=== PATIENT | male | born 1940 | race Caucasian/White ===

== ENCOUNTER 2022-12-25 14:45 | Outpatient (OUT) | payer MEDICARE, SELFPAY ==
[2022-12-25 15:27] LABS: Estimated Average Glucose 160 mg/dL; Glycohemoglobin A1C 7.2 % (4.5-6.2)
== END 2022-12-25 14:46 | disposition home or self-care (01) ==
PROVIDERS: PCP Family Medicine; Visit Provider Family Medicine
DX: E11.65 Type 2 diabetes mellitus with hyperglycemia (principal)
CPT/HCPCS: 36415; 83036

== ENCOUNTER 2023-06-04 05:58 | Inpatient (IN) | payer MEDICARE, SELFPAY ==
[2023-06-04] VITALS (34 sets, daily range): BP systolic 105–167; BP diastolic 53–90; PULSE 64–116; RESP 15–30; TEMP 36.4–36.9; O2SAT 87–100; BMI 23.3
--- NOTE | 2023-06-04 06:14 | ECG_ITS ---
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
[2023-06-04 06:16] LABS: Adenovirus NOT DETECTED (NOT DETECTE); Bordetella parapertussis NOT DETECTED (NOT DETECTE); Coronavirus 229E NOT DETECTED (NOT DETECTE); Coronavirus HKU1 NOT DETECTED (NOT DETECTE); Coronavirus NL63 NOT DETECTED (NOT DETECTE); Coronavirus OC43 NOT DETECTED (NOT DETECTE); Human Metapneumovirus NOT DETECTED (NOT DETECTE); Influenza A NOT DETECTED (NOT DETECTE); Influenza B NOT DETECTED (NOT DETECTE); Mycoplasma pneumoniae NOT DETECTED (NOT DETECTE); Parainfluenza Virus 1 NOT DETECTED (NOT DETECTE); Parainfluenza Virus 2 NOT DETECTED (NOT DETECTE); Parainfluenza Virus 3 NOT DETECTED (NOT DETECTE); Parainfluenza Virus 4 NOT DETECTED (NOT DETECTE); Respiratory Syncytial Virus NOT DETECTED (NOT DETECTE); SARS-CoV-2 NOT DETECTED (NOT DETECTE)
--- NOTE | 2023-06-04 06:27 | ED_ITS ---
HPI - SOB/Dyspnea General Chief Complaint: Shortness of Breath/Dyspnea Stated Complaint: OTHER Time Seen by Provider: 06/04/23 06:20 Source: patient Mode of arrival: ambulance Limitations: no limitations History of Present Illness HPI Narrative: patient has past history of COPD. daily smoker. Was smoking cigarette when Squad arrived. past history of CAD and diabetes. Presents complaining of chest pain and shortness of breath. States started a couple of hours ago. No associated nausea or vomiting or abdominal pain. No fever MD elicited complaint: shortness of breath Pertinent past history: COPD and diabetes Related Data Home Medications ?Medication ?Instructions ?Recorded ?Confirmed albuterol sulfate 90 mcg/actuation 2 inh inhalation Q4H PRN shortness 06/04/23 06/04/23 aerosol inhaler of breath or wheezing amlodipine 5 mg tablet 5 mg PO DAILY 06/04/23 06/04/23 blood sugar diagnostic (Accu-Chek 06/04/23 06/04/23 Guide test strips) carvedilol 25 mg tablet 25 mg PO Q12H 06/04/23 06/04/23 cyclobenzaprine 10 mg tablet 10 mg PO DAILY 06/04/23 06/04/23 ipratropium 0.5 mg-albuterol 3 mg 3 ml inhalation Q4H PRN shortness 06/04/23 06/04/23 (2.5 mg base)/3 mL nebulization of breath or wheezing soln metformin 500 mg tablet,extended 500 mg PO BID 06/04/23 06/04/23 release 24 hr oxycodone-acetaminophen 10 mg-325 1 tab PO Q6H PRN pain 06/04/23 06/04/23 mg tablet paroxetine HCl 20 mg tablet 20 mg PO QAM 06/04/23 06/04/23 rosuvastatin 20 mg tablet 20 mg PO QPM 06/04/23 06/04/23 spironolactone 25 mg tablet 25 mg PO QAM 06/04/23 06/04/23 Allergies Allergy/AdvReac Type Severity Reaction Status Date / Time No Known Drug Allergies Allergy Verified 06/04/23 06:04 Review of Systems ROS Status of ROS 10 or more systems reviewed and unremark able except as noted in history and below [facility] Medical History (Updated 06/04/23 @ 14:41 by Joelle Caleb, DO) COPD (chronic obstructive pulmonary disease) ?J44.9 - Chronic obstructive pulmonary disease, unspecified (ICD-10) Chronic back pain ?M54.9 - Dorsalgia, unspecified (ICD-10) ?G89.29 - Other chronic pain (ICD-10) Anxiety ?F41.9 - Anxiety disorder, unspecified (ICD-10) Hyperlipidemia ?E78.5 - Hyperlipidemia, unspecified (ICD-10) Non-insulin dependent diabetes mellitus Hypertension ?I10 - Essential (primary) hypertension (ICD-10) History of myocardial infarct at age less than 60 years ?I25.2 - Old myocardial infarction (ICD-10) Family History Aunt Family history of cancer Social History Within the past year, how often did you have a drink containing alcohol: never Score interpretation: A score less than 4 is consistent with normal alcohol consumption. 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 [employer] Highest level of school completed/degree received: 10th grade Do you want help with school or training: No Are you now , , , , never or living with a partner: Little interest or pleasure in doing things: several days Feeling down, depressed, or hopeless: several days Life stressors: recent of family or friend Life stressor details: passed four weeks ago Do you think of yourself as: straight/heterosexual Gender Identity: male Exam Constitutional Vital Signs, click to edit/add: Last Vital Signs Temp 97.8 F 06/05/23 03:18 Pulse 70 06/05/23 06:00 Resp 22 06/05/23 03:18 BP 124/68 06/05/23 03:18 Pulse Ox 96 06/05/23 03:18 O2 Del Method Nasal Cannula 06/05/23 03:18 O2 Flow Rate 2 06/05/23 03:18 Common normals: no apparent distress (mild distress), average body habitus, oriented x3, no limitations, alert and well nourished HENMT Common normals: normocephalic and head/scalp atraumatic Eye Common normals: EOMs intact bilaterally and conjunctivae normal Respiratory Common normals: normal respiratory effort (mild distress. diminished breath sounds) Cardio Common normals: regular rate, regular rhythm, S1 normal heart sound and S2 normal heart sound GI Common normals: Normal to inspection, nondistended, normoactive bowel sounds present, soft to palpation and non-tender Extremity Common normals: normal to inspection and full ROM Neuro Common normals: oriented x3, CN's II-XII intact bilaterally, moves all extremities, no focal motor deficits and no sensory deficits noted Psych Appearance: grossly normal Course Vital Signs Vital signs: Vital Signs Temperature 98.5 F 06/04/23 06:01 Pulse Rate 85 06/04/23 06:01 Respiratory Rate 18 06/04/23 06:01 Blood Pressure 120/82 06/04/23 06:01 Pulse Oximetry 99 06/04/23 06:01 Oxygen Delivery Method Room Air 06/04/23 06:01 Temperature 97.8 F 06/05/23 03:18 Pulse Rate 70 06/05/23 06:00 Respiratory Rate 22 06/05/23 03:18 Blood Pressure 124/68 06/05/23 03:18 Pulse Oximetry 96 06/05/23 03:18 Oxygen Delivery Method Nasal Cannula 06/05/23 03:18 Oxygen Delivery Flow Rate 2 06/05/23 03:18 MDM - SOB/Dyspnea MDM Narrative Medical decision making narrative: past history of COPD , diabetes and CAD. current smoker. Presents via Squad complaining of chest pain for a couple of hours and dyspnea. EKG with NSR. old anterior wall scar. noisy base and inverted T aVL. labs ordered as well as duoneb and solumedrol. Care transferred to [facility] at change of shift Lab Data Labs: Lab Results 06/04/23 06/04/23 Range/Units 06:08 08:26 WBC 10.2 (4.0-11.0) 10^3/uL RBC 4.40 L (4.70-6.10) 10^6/uL Hgb 13.7 L (14.0-18.0) g/dL Hct 39.7 L (42.0-54.0) % MCV 90.2 (80.0-94.0) fL MCH 31.1 (25.9-34.0) pg MCHC 34.5 (29.9-35.2) g/dL RDW 11.6 (11.0-15.0) % Plt Count 97 L (150-450) 10^3/uL MPV 11.8 (9.5-13.5) fL Neut % (Auto) 69.7 (43.0-75.0) % Lymph % (Auto) 13.5 L (20.5-60.0) % [place] % (Auto) 12.8 H (1.7-12.0) % Eos % (Auto) 3.0 (0.9-7.0) % Baso % (Auto) 0.7 (0.2-2.0) % Neut # (Auto) 7.1 H (1.4-6.5) 10^3/uL Lymph # (Auto) 1.4 (1.2-3.8) 10^3/uL [place] # (Auto) 1.3 H (0.3-0.8) 10^3/uL Eos # (Auto) 0.3 (0.0-0.7) 10^3/uL Baso # (Auto) 0.1 (0.0-0.1) 10^3/uL Abs Immat Gran (auto) 0.03 (0.00-0.03) 10^3/uL Imm/Tot Granulo (auto) 0.3 (0.0-0.5) % Sodium 131 L 128 L (136-145) mmol/L Potassium 6.3 H* 6.8 H* (3.5-5.1) mmol/L Chloride 95 L 95 L (98-107) mmol/L Carbon Dioxide 28.3 23.9 (21.0-32.0) mmol/L Anion Gap 14.0 15.9 BUN 20.0 H 20.0 H (7.0-18.0) mg/dL Creatinine 1.58 H 1.57 H (0.70-1.30) mg/dL Est GFR ( Amer) 51 L 52 L (>=60) Est GFR (Non-Af Amer) 42 L 43 L (>=60) BUN/Creatinine Ratio 12.7 12.7 Glucose 130 H 149 H (74-106) mg/dL Calcium 8.6 8.6 (8.5-10.1) mg/dL Troponin I High Sens 9.7 9.6 (4.0-76.1) pg/mL NT-Pro-B Natriuret Pep 919.0 (<=1800.0) pg/mL Adenovirus (PCR) Not detected (NOT DETECTE) C. pneumoniae DNA (PCR) Not detected (NOT DETECTE) Coronavirus Type OC43 Not detected (NOT DETECTE) Coronavirus Type HKU1 Not detected (NOT DETECTE) Coronavirus Type 229E Not detected (NOT DETECTE) Coronavirus Type NL63 Not detected (NOT DETECTE) Human Metapneumovir PCR Not detected (NOT DETECTE) M. pneumoniae (PCR) Not detected (NOT DETECTE) Parainfluenza PCR Not detected (NOT DETECTE) Parainfluenza 2 (PCR) Not detected (NOT DETECTE) Parainfluenza 3 (PCR) Not detected (NOT DETECTE) Parainfluenza 4 (PCR) Not detected (NOT DETECTE) RSV (RT-PCR) Not detected (NOT DETECTE) Entero/Rhino (PCR) Detected A (NOT DETECTE) SARS-CoV-2 (PCR) Not detected (NOT DETECTE) Bordetella pertussis (PCR) Not detected (NOT DETECTE) B parapertussis DNA PCR Not detected (NOT DETECTE) Influenza Type A (PCR) Not detected (NOT DETECTE) Influenza Type B (PCR) Not detected (NOT DETECTE) Discharge Plan Discharge Chief Complaint: Shortness of Breath/Dyspnea Clinical Impression: Chest pain, Hyperkalemia Patient Disposition: Admitted as Observation Time of Disposition Decision: 10:40 Condition: Good Discharge Date/Time: 06/04/23 11:38
[2023-06-04] MEDS: METHYLPREDNISOLONE SOD SUCC PF 125 MG/2 ML VIAL IVP (06:33)
[2023-06-04] MEDS: IPRATROPIUM/ALBUTEROL SULFATE 3 ML AMPUL.NEB IH ×3 (06:35→23:49)
--- NOTE | 2023-06-04 06:43 | XR_ITS ---
The [address] [address] Patient Name: HENRIQUE HAILE MRN: [id number] date: 1940 Sex: M Assigned Patient Location: ER Current Patient Location: ED.MAIN Accession/Order Number: [id number] Exam Date: 06/04/2023 06:50 Report Date: 06/04/2023 07:42 At the request of: ARUN BIRD Procedure: XR chest 1V EXAM: XR chest 1V HISTORY: . chest pain . COMPARISON: 04/26/2019 TECHNIQUE: Single view of the chest FINDINGS: Heart and vascularity are unremarkable. Lungs are free of focal infiltrates. Grossly no bony abnormality is appreciated. XR/XR chest 1V IMPRESSION: No acute heart or lung disease identified. Electronically authenticated by: SARAI FONSECA Date: 06/04/2023 07:42
[2023-06-04 06:53] LABS: Basophils Absolute Auto 0.1 10^3/uL (0.0-0.1); Basophils Percent Auto 0.7 % (0.2-2.0); Eosinophils Absolute Auto 0.3 10^3/uL (0.0-0.7); Hematocrit 39.7 % (42.0-54.0); Hemoglobin 13.7 g/dL (14.0-18.0); Immature Granulocytes Abs Auto 0.03 10^3/uL (0.00-0.03); Immature Granulocytes Pct Auto 0.3 % (0.0-0.5); Lymphocytes Absolute Auto 1.4 10^3/uL (1.2-3.8); Lymphocytes Percent Auto 13.5 % (20.5-60.0); Mean Corpuscular HGB Conc 34.5 g/dL (29.9-35.2); Mean Corpuscular Hemoglobin 31.1 pg (25.9-34.0); Mean Corpuscular Volume 90.2 fL (80.0-94.0); Mean Platelet Volume 11.8 fL (9.5-13.5); Monocytes Absolute Auto 1.3 10^3/uL (0.3-0.8); Monocytes Percent Auto 12.8 % (1.7-12.0); Neutrophils Absolute Auto 7.1 10^3/uL (1.4-6.5); Neutrophils Percent Auto 69.7 % (43.0-75.0); Platelet Count 97 10^3/uL (150-450); Red Cell Distribution Width 11.6 % (11.0-15.0); White Blood Count 10.2 10^3/uL (4.0-11.0)
[2023-06-04 07:15] LABS: BUN Creatinine Ratio 12.7; Calcium 8.6 mg/dL (8.5-10.1); Carbon Dioxide 28.3 mmol/L (21.0-32.0); Chloride 95 mmol/L (98-107); Estimated GFR (African America 51 (>=60); Estimated GFR (Non-African Ame 42 (>=60); Glucose 130 mg/dL (74-106); Sodium 131 mmol/L (136-145); Troponin I High Sensitivity 9.7 pg/mL (4.0-76.1)
[2023-06-04] MEDS: LORAZEPAM 2 MG/ML 1 ML VIAL 0.5 MG IV (07:21)
[2023-06-04 07:22] LABS: Potassium 6.3 mmol/L (3.5-5.1)
[2023-06-04 07:25] LABS: Human Rhinovirus/Enterovirus DETECTED (NOT DETECTE)
[2023-06-04 09:12] LABS: Anion Gap 15.9; BUN Creatinine Ratio 12.7; Calcium 8.6 mg/dL (8.5-10.1); Carbon Dioxide 23.9 mmol/L (21.0-32.0); Chloride 95 mmol/L (98-107); Estimated GFR (African America 52 (>=60); Estimated GFR (Non-African Ame 43 (>=60); Glucose 149 mg/dL (74-106); Sodium 128 mmol/L (136-145); Troponin I High Sensitivity 9.6 pg/mL (4.0-76.1)
[2023-06-04 09:17] LABS: Potassium 6.8 mmol/L (3.5-5.1)
[2023-06-04] MEDS: DEXTROSE 50 %-WATER 25 GM/50 ML SYRINGE IV (09:39)
[2023-06-04] MEDS: INSULIN REGULAR 300 UNITS/3 ML 10 UNIT IV (09:39)
--- NOTE | 2023-06-04 10:38 | ED.GENADUL1 ---
HPI - General Adult General Chief complaint: Shortness of Breath/Dyspnea Stated complaint: OTHER Time Seen by Provider: 06/04/23 06:20 Source: patient Mode of arrival: ambulance Limitations: no limitations History of Present Illness HPI narrative: The patient was initially seen by Dr. Zuleta and signed out to me after discussing the case with him thoroughly. Please see his full history and physical. Related Data Home Medications ?Medication ?Instructions ?Recorded ?Confirmed albuterol sulfate 90 mcg/actuation 2 inh inhalation Q4H PRN shortness 06/04/23 06/04/23 aerosol inhaler of breath or wheezing amlodipine 5 mg tablet 5 mg PO DAILY 06/04/23 06/04/23 blood sugar diagnostic (Accu-Chek 06/04/23 06/04/23 Guide test strips) carvedilol 25 mg tablet 25 mg PO Q12H 06/04/23 06/04/23 cyclobenzaprine 10 mg tablet 10 mg PO DAILY 06/04/23 06/04/23 ipratropium 0.5 mg-albuterol 3 mg 3 ml inhalation Q4H PRN shortness 06/04/23 06/04/23 (2.5 mg base)/3 mL nebulization of breath or wheezing soln metformin 500 mg tablet,extended 500 mg PO BID 06/04/23 06/04/23 release 24 hr oxycodone-acetaminophen 10 mg-325 1 tab PO Q6H PRN pain 06/04/23 06/04/23 mg tablet paroxetine HCl 20 mg tablet 20 mg PO QAM 06/04/23 06/04/23 rosuvastatin 20 mg tablet 20 mg PO QPM 06/04/23 06/04/23 spironolactone 25 mg tablet 25 mg PO QAM 06/04/23 06/04/23 Allergies Allergy/AdvReac Type Severity Reaction Status Date / Time No Known Drug Allergies Allergy Verified 06/04/23 06:04 Exam Constitutional Vital Signs, click to edit/add: Last Vital Signs Temp 98.5 F 06/04/23 06:01 Pulse 65 06/04/23 08:39 Resp 30 H 06/04/23 06:35 BP 105/54 06/04/23 09:31 Pulse Ox 98 06/04/23 09:50 O2 Del Method Room Air 06/04/23 06:17 Course Vital Signs Vital signs: Vital Signs Temperature 98.5 F 06/04/23 06:01 Pulse Rate 85 06/04/23 06:01 Respiratory Rate 18 06/04/23 06:01 Blood Pressure 120/82 06/04/23 06:01 Pulse Oximetry 99 06/04/23 06:01 Oxygen Delivery Method Room Air 06/04/23 06:01 Temperature 98.5 F 06/04/23 06:01 Pulse Rate 65 06/04/23 08:39 Respiratory Rate 30 H 06/04/23 06:35 Blood Pressure 105/54 06/04/23 09:31 Pulse Oximetry 98 06/04/23 09:50 Oxygen Delivery Method Room Air 06/04/23 06:17 Medical Decision Making MDM Narrative Medical decision making narrative: 2 sets of troponin are negative and the chest x-ray shows no acute findings. His potassium however is elevated. The initial report was 6.3 and I repeated it and it was found to be 6.8. He was given D50 and insulin and Kayexalate is being ordered. The patient was also feeling quite anxious and requested antianxiety medication. He was given 0.5 mg of IV Ativan which made him quite drowsy. He is being admitted Differential Diagnosis Differential Diagnosis: Chest pain, KS, pneumonia, pneumothorax Lab Data Lab results reviewed: Yes I reviewed the patient's lab results Labs: Lab Results 06/04/23 06/04/23 Range/Units 06:08 08:26 WBC 10.2 (4.0-11.0) 10^3/uL RBC 4.40 L (4.70-6.10) 10^6/uL Hgb 13.7 L (14.0-18.0) g/dL Hct 39.7 L (42.0-54.0) % MCV 90.2 (80.0-94.0) fL MCH 31.1 (25.9-34.0) pg MCHC 34.5 (29.9-35.2) g/dL RDW 11.6 (11.0-15.0) % Plt Count 97 L (150-450) 10^3/uL MPV 11.8 (9.5-13.5) fL Neut % (Auto) 69.7 (43.0-75.0) % Lymph % (Auto) 13.5 L (20.5-60.0) % [place] % (Auto) 12.8 H (1.7-12.0) % Eos % (Auto) 3.0 (0.9-7.0) % Baso % (Auto) 0.7 (0.2-2.0) % Neut # (Auto) 7.1 H (1.4-6.5) 10^3/uL Lymph # (Auto) 1.4 (1.2-3.8) 10^3/uL [place] # (Auto) 1.3 H (0.3-0.8) 10^3/uL Eos # (Auto) 0.3 (0.0-0.7) 10^3/uL Baso # (Auto) 0.1 (0.0-0.1) 10^3/uL Abs Immat Gran (auto) 0.03 (0.00-0.03) 10^3/uL Imm/Tot Granulo (auto) 0.3 (0.0-0.5) % Sodium 131 L 128 L (136-145) mmol/L Potassium 6.3 H* 6.8 H* (3.5-5.1) mmol/L Chloride 95 L 95 L (98-107) mmol/L Carbon Dioxide 28.3 23.9 (21.0-32.0) mmol/L Anion Gap 14.0 15.9 BUN 20.0 H 20.0 H (7.0-18.0) mg/dL Creatinine 1.58 H 1.57 H (0.70-1.30) mg/dL Est GFR ( Amer) 51 L 52 L (>=60) Est GFR (Non-Af Amer) 42 L 43 L (>=60) BUN/Creatinine Ratio 12.7 12.7 Glucose 130 H 149 H (74-106) mg/dL Calcium 8.6 8.6 (8.5-10.1) mg/dL Troponin I High Sens 9.7 9.6 (4.0-76.1) pg/mL NT-Pro-B Natriuret Pep 919.0 (<=1800.0) pg/mL Adenovirus (PCR) Not detected (NOT DETECTE) C. pneumoniae DNA (PCR) Not detected (NOT DETECTE) Coronavirus Type OC43 Not detected (NOT DETECTE) Coronavirus Type HKU1 Not detected (NOT DETECTE) Coronavirus Type 229E Not detected (NOT DETECTE) Coronavirus Type NL63 Not detected (NOT DETECTE) Human Metapneumovir PCR Not detected (NOT DETECTE) M. pneumoniae (PCR) Not detected (NOT DETECTE) Parainfluenza PCR Not detected (NOT DETECTE) Parainfluenza 2 (PCR) Not detected (NOT DETECTE) Parainfluenza 3 (PCR) Not detected (NOT DETECTE) Parainfluenza 4 (PCR) Not detected (NOT DETECTE) RSV (RT-PCR) Not detected (NOT DETECTE) Entero/Rhino (PCR) Detected A (NOT DETECTE) SARS-CoV-2 (PCR) Not detected (NOT DETECTE) Bordetella pertussis (PCR) Not detected (NOT DETECTE) B parapertussis DNA PCR Not detected (NOT DETECTE) Influenza Type A (PCR) Not detected (NOT DETECTE) Influenza Type B (PCR) Not detected (NOT DETECTE) Imaging Data Chest x-ray: Radiologist's impression: ITS Impressions Chest X-Ray 06/04/23 06:43 IMPRESSION: No acute heart or lung disease identified. Electronically authenticated by: SARAI FOSNECA Date: 06/04/2023 07:42 ECG Data Attestation: I personally reviewed and interpreted this ECG as follows: (EKG on my interpretation shows sinus rhythm without acute change) Critical Care Time Critical Care Time Critical Care Time: Yes Total Critical Care Time: 35 Attestation: Due to the high probability of sudden and clinically significant deterioration in the patient's condition he/she required the highest level of my preparedness to intervene urgently I provided critical care time including documentation time, medication orders and management, reevaluation, vital sign assessment, ordering and reviewing of lab tests, ordering and reviewing of x-ray studies, and admission orders. Aggregate critical care time is 35 minutes including only time during which I was engaged in work directly related to his/her care and did not include time spent treating other patients simultaneously. Discharge Plan Discharge Chief Complaint: Shortness of Breath/Dyspnea Clinical Impression: Chest pain, Hyperkalemia Patient Disposition: Admitted as Observation Time of Disposition Decision: 10:40 Condition: Good
[2023-06-04] MEDS: SODIUM POLYSTYRENE SULFON 15 GM/60 ML ORAL.SUSP KAYEXALATE PO (11:30)
--- NOTE | 2023-06-04 12:15 | PC.NURSE ---
Patient not a liable historian for medical history
--- NOTE | 2023-06-04 12:27 | PM.HP ---
HPI H&P: HPI History of Present Illness Chief complaint: OTHER, HYPERKALEMIA Narrative: patient is a 83-year-old male with past history of hypertension, chronic obstructive pulmonary disease, wha-[id number]-vftpanfgl type 2 diabetes, anxiety disorder, hyperlipidemia who presented to the Emergency Room at this morning for increased work of breathing. He notes that he has been having some shortness of breath over the last couple days. He has known chronic obstructive pulmonary disease, but he denies using his inhalers more than usual. He denies any fevers or chills and also noted some weakness. In the emergency department he tested positive for rhinovirus, and his potassium was also significantly elevated at 6.8. Patient was given insulin and his potassium came down to 6.1. He was admitted to the hospitalist service for further plan of care. 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 He denies ever having any potassium issues. Patient only sees an eye doctor as well as his primary care physician regularly. He denies any shortness of breath or chest pain. He appears very anxious and is constantly pulling at his gown and touching and pulling away his wallet. The Emergency Room physician also mentioned increased anxiety in the Emergency Room. Opioid HPI Opioid Management Most Recent Opioid Data: Last Pain Intensity 0 06/04/23 13:42 Last Pain Assessment 06/04/23 12:08 Last MAR Pain Assessment 06/04/23 14:01 Last ORT Total Score 0 06/04/23 12:17 Last ORT Risk Category Low Risk 06/04/23 12:17 Review of Systems ROS Narrative ROS: a complete review of systems were reviewed with patient and are positive as below or listed in History of Chief Complaint. General: no fever, chills, night sweats Head: no headache, trauma, visual changes, nausea or vomiting Skin: no reported rashes, itching or sores Eyes: no blurriness of vision Ears: no reported hearing loss, vertigo, earache, or tinnitus Throat: no sore throat, hoarseness, swelling of neck, or tongue pain Heart: no chest pain Lungs: shortness of breath no cough GI: no diarrhea or vomiting/nausea Urinary: no urinary urgency, frequency or pain Neuro: no numbness or tingling HEM: no bleeding issues or bruising ENDO: no thyroid problems Psych: no anxiety or depression PFSH [facility] Medical History (Updated 06/04/23 @ 14:41 by Joelle Ellis DO) COPD (chronic obstructive pulmonary disease) ?J44.9 - Chronic obstructive pulmonary disease, unspecified (ICD-10) Chronic back pain ?M54.9 - Dorsalgia, unspecified (ICD-10) ?G89.29 - Other chronic pain (ICD-10) Anxiety ?F41.9 - Anxiety disorder, unspecified (ICD-10) Hyperlipidemia ?E78.5 - Hyperlipidemia, unspecified (ICD-10) Non-insulin dependent diabetes mellitus Hypertension ?I10 - Essential (primary) hypertension (ICD-10) History of myocardial infarct at age less than 60 years ?I25.2 - Old myocardial infarction (ICD-10) Family History Aunt Family history of cancer Social History Within the past year, how often did you have a drink containing alcohol: never Score interpretation: A score less than 4 is consistent with normal alcohol consumption. 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 [employer] Highest level of school completed/degree received: 10th grade Do you want help with school or training: No Are you now , , , , never or living with a partner: Little interest or pleasure in doing things: several days Feeling down, depressed, or hopeless: several days Life stressors: recent of family or friend Life stressor details: passed four weeks ago Do you think of yourself as: straight/heterosexual Gender Identity: male Meds Home Medications and Allergies Home Medications ?Medication ?Instructions ?Recorded ?Confirmed ?Type albuterol sulfate 90 mcg/actuation 2 inh inhalation Q4H PRN shortness 06/04/23 06/04/23 History aerosol inhaler of breath or wheezing amlodipine 5 mg tablet 5 mg PO DAILY 06/04/23 06/04/23 History blood sugar diagnostic (Accu-Chek 06/04/23 06/04/23 History Guide test strips) carvedilol 25 mg tablet 25 mg PO Q12H 06/04/23 06/04/23 History cyclobenzaprine 10 mg tablet 10 mg PO DAILY 06/04/23 06/04/23 History ipratropium 0.5 mg-albuterol 3 mg 3 ml inhalation Q4H PRN shortness 06/04/23 06/04/23 History (2.5 mg base)/3 mL nebulization of breath or wheezing soln metformin 500 mg tablet,extended 500 mg PO BID 06/04/23 06/04/23 History release 24 hr oxycodone-acetaminophen 10 mg-325 1 tab PO Q6H PRN pain 06/04/23 06/04/23 History mg tablet paroxetine HCl 20 mg tablet 20 mg PO QAM 06/04/23 06/04/23 History rosuvastatin 20 mg tablet 20 mg PO QPM 06/04/23 06/04/23 History spironolactone 25 mg tablet 25 mg PO QAM 06/04/23 06/04/23 History Allergies Allergy/AdvReac Type Severity Reaction Status Date / Time No Known Drug Allergies Allergy Verified 06/04/23 06:04 Exam Narrative Exam Narrative: General: Patient is alert, and oriented to person, place and time with appears very anxious and is constantly picking at things and easily distracted while trying to answer my questions Skin: no visible rashes, or ulcers Head: atraumatic, acephalic Eyes: PERRLA, no nystagmus present, conjunctiva clear, no scleral icterus Ears: normal gross auditory acuity Nose: symmetric, no discharge, no maxillary or frontal sinus tenderness Heart: Normal rate and rhythm, no murmurs/rubs/gallops Lungs: no audible wheezes, crackles and diminished breath sounds all lung arango Abdomen: Normal audible bowel sounds, no distension, No palpable masses, no organomegaly, no rebound/guarding/ or rigidity Musculoskeletal: no swelling bilateral lower extremities Neuro: CN II-X grossly intact Constitutional Vital Signs, click to edit/add: Last Vital Signs Temp 97.5 F L 06/04/23 11:53 Pulse 69 06/04/23 12:20 Resp 16 06/04/23 12:20 BP 142/73 H 06/04/23 11:53 Pulse Ox 91 L 06/04/23 12:20 O2 Del Method Room Air 06/04/23 12:20 Results Labs Labs: Short CBC 06/04/23 Range/Units 06:08 WBC 10.2 (4.0-11.0) 10^3/uL Hgb 13.7 L (14.0-18.0) g/dL Hct 39.7 L (42.0-54.0) % Plt Count 97 L (150-450) 10^3/uL BMP 06/04/23 06/04/23 06:08 08:26 Sodium 131 L 128 L Potassium 6.3 H* 6.8 H* Chloride 95 L 95 L Carbon Dioxide 28.3 23.9 BUN 20.0 H 20.0 H Creatinine 1.58 H 1.57 H Glucose 130 H 149 H Calcium 8.6 8.6 Assessment and Plan Assessment and Plan (1) Hyperkalemia: Assessment and Plan: recheck 6.1. hold spironolactone, start Lactulose 30mg BID, given 1 time dose of lasix 10mg IV. Monitor q6 hour potassium levels. On telemetry (2) Acute bronchitis due to Rhinovirus: Assessment and Plan: supportive treatment with duonebs, Opep (3) Acute renal failure: Assessment and Plan: hold metformin and aldactone. gentle IVF LR @50, nephro consult tomorrow if little to no improvement in potassium level (4) Hypertension: Assessment and Plan: continue coreg and amlodipine Qualifiers: Hypertension type: primary hypertension Qualified Code(s): I10 - Essential (primary) hypertension (5) Non-insulin dependent diabetes mellitus: Assessment and Plan: hold metformin, SSI, accucheck qac qhs (6) Hyperlipidemia: Assessment and Plan: continue rosuvastatin Qualifiers: Hyperlipidemia type: unspecified Qualified Code(s): E78.5 - Hyperlipidemia, unspecified (7) Anxiety: Assessment and Plan: continue paxil, add vistaril (8) Chronic back pain: Assessment and Plan: continue pron oxycodone Qualifiers: Back pain location: low back pain Back pain laterality: unspecified Sciatica presence: unspecified whether sciatica present Qualified Code(s): M54.50 - Low back pain, unspecified; G89.29 - Other chronic pain (9) COPD (chronic obstructive pulmonary disease): Assessment and Plan: continue nebs. Qualifiers: COPD type: unspecified COPD Qualified Code(s): J44.9 - Chronic obstructive pulmonary disease, unspecified Plan Patient is a full code lovenox for dvt prophylaxis patient is observation status and not expected to cross 2 midnights for his medical care.
--- NOTE | 2023-06-04 12:40 | PC.NURSE ---
Patient refuses to take off blue jeans and let staff lock up wallet. Wallet contains $417 and two lottery tickets. Patient states he is giving the wallet to his daughter. We have not spoke to her at this time. Ladies Attendant Kelly contreras.
[2023-06-04 12:48] LABS: Glucometer 177 mg/dL (74-106)
[2023-06-04 13:08] LABS: Anion Gap 14.8; BUN Creatinine Ratio 12.5; Calcium 8.9 mg/dL (8.5-10.1); Carbon Dioxide 27.3 mmol/L (21.0-32.0); Chloride 94 mmol/L (98-107); Estimated GFR (African America 51 (>=60); Estimated GFR (Non-African Ame 42 (>=60); Glucose 151 mg/dL (74-106); Sodium 130 mmol/L (136-145)
[2023-06-04 13:11] LABS: Potassium 6.1 mmol/L (3.5-5.1)
[2023-06-04] MEDS: SODIUM POLYSTYRENE SULFON/SORB 15 GM/60 ML ORAL.SUSP 30 GM PO (13:38)
[2023-06-04] MEDS: LACTATED RINGER'S SOLUTION 1,000 ML 50 ML IV (13:39)
[2023-06-04] MEDS: OXYCODONE HCL 5 MG TABLET PO ×2 (14:00→20:28)
[2023-06-04] MEDS: OXYCODONE HCL/ACETAMINOPHEN 5MG/325MG 1 TAB PO ×2 (14:01→20:28)
[2023-06-04] MEDS: HEPARIN SODIUM (PORCINE) 5,000 UNIT/ML VIAL 5000 UNIT SUBQ (14:02)
[2023-06-04] MEDS: HYDROXYZINE PAMOATE 25 MG CAPSULE PO ×2 (15:09→20:28)
[2023-06-04] MEDS: FUROSEMIDE 20 MG/2 ML VIAL 10 MG IVP (15:11)
[2023-06-04] MEDS: ALBUTEROL SULFATE 2.5 MG/3 ML VIAL NEB IH ×2 (15:13→21:14)
--- NOTE | 2023-06-04 15:48 | ECG_ITS ---
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
[2023-06-04 16:10] LABS: Glucometer 287 mg/dL (74-106)
[2023-06-04 17:08] LABS: BUN Creatinine Ratio 13.5; Carbon Dioxide 27.6 mmol/L (21.0-32.0); Chloride 93 mmol/L (98-107); Estimated GFR (African America 50 (>=60); Estimated GFR (Non-African Ame 41 (>=60); Glucose 241 mg/dL (74-106); Magnesium 1.7 mg/dL (1.8-2.4); Potassium 5.6 mmol/L (3.5-5.1); Sodium 128 mmol/L (136-145); Troponin I High Sensitivity 10.2 pg/mL (4.0-76.1)
[2023-06-04] MEDS: LORAZEPAM 0.5 MG TABLET PO ×2 (17:19→20:28)
[2023-06-04] MEDS: ATORVASTATIN CALCIUM 40 MG TABLET PO (19:30)
[2023-06-04 19:57] LABS: Glucometer 240 mg/dL (74-106)
[2023-06-04 20:07] LABS: Anion Gap 13.3; BUN Creatinine Ratio 14.5; Calcium 8.5 mg/dL (8.5-10.1); Carbon Dioxide 26.9 mmol/L (21.0-32.0); Chloride 94 mmol/L (98-107); Estimated GFR (African America 48 (>=60); Estimated GFR (Non-African Ame 40 (>=60); Glucose 198 mg/dL (74-106); Potassium 5.2 mmol/L (3.5-5.1); Sodium 129 mmol/L (136-145)
[2023-06-04] MEDS: SODIUM POLYSTYRENE SULFON 15 GM/60 ML ORAL.SUSP KAYEXALATE 30 GM PO (20:27)
[2023-06-04] MEDS: CARVEDILOL 25 MG TABLET PO (20:28)
[2023-06-04] MEDS: QUETIAPINE FUMARATE 25 MG TABLET PO (22:36)
[2023-06-04] MEDS: BUDESONIDE 0.5 MG/2 ML AMPULE NEB IH (23:49)
[2023-06-04 23:51] LABS: Anion Gap 12.1; BUN Creatinine Ratio 15.2; Calcium 8.9 mg/dL (8.5-10.1); Carbon Dioxide 30.2 mmol/L (21.0-32.0); Chloride 93 mmol/L (98-107); Estimated GFR (African America 49 (>=60); Estimated GFR (Non-African Ame 40 (>=60); Glucose 170 mg/dL (74-106); Potassium 5.3 mmol/L (3.5-5.1); Sodium 130 mmol/L (136-145)
[2023-06-05] VITALS (21 sets, daily range): BP systolic 124–161; BP diastolic 65–82; PULSE 57–110; RESP 18–22; TEMP 36.6–37.1; O2SAT 89–99
[2023-06-05] MEDS: HEPARIN SODIUM (PORCINE) 5,000 UNIT/ML VIAL 5000 UNIT SUBQ ×2 (00:05→12:21)
[2023-06-05 06:30] LABS: Hematocrit 36.3 % (42.0-54.0); Hemoglobin 12.4 g/dL (14.0-18.0); Mean Corpuscular HGB Conc 34.2 g/dL (29.9-35.2); Mean Corpuscular Hemoglobin 30.3 pg (25.9-34.0); Mean Corpuscular Volume 88.8 fL (80.0-94.0); Platelet Count 96 10^3/uL (150-450); Red Blood Count 4.09 10^6/uL (4.70-6.10); Red Cell Distribution Width 11.3 % (11.0-15.0); White Blood Count 9.5 10^3/uL (4.0-11.0)
[2023-06-05 06:49] LABS: Band Neutrophils Absolute 0.7 10^3/uL (0.0-0.3); Lymphocytes Absolute Manual 0.47 10^3/uL (1.20-3.80); Metamyelocytes Absolute Manual 0.47; Monocytes Absolute Manual 0.09 10^3/uL (0.30-0.80); Segmented Neut Absolute Manual 7.79 10^3/uL (1.4-6.5)
[2023-06-05 06:50] LABS: Estimated Average Glucose 134 mg/dL; Glycohemoglobin A1C 6.3 % (4.5-6.2)
[2023-06-05 07:02] LABS: Alanine Aminotransferase 12 U/L (16-63); Albumin Level 2.8 g/dL (3.4-5.0); Alkaline Phosphatase 93 U/L (46-116); Anion Gap 14.3; Aspartate Amino Transferase 24 U/L (15-37); BUN Creatinine Ratio 15.6; Bilirubin Total 0.5 mg/dL (0.2-1.0); Calcium 8.2 mg/dL (8.5-10.1); Carbon Dioxide 26.8 mmol/L (21.0-32.0); Chloride 95 mmol/L (98-107); Estimated GFR (African America >60 (>=60); Estimated GFR (Non-African Ame 54 (>=60); Globulin 2.8 g/dL; Glucose 147 mg/dL (74-106); Magnesium 1.6 mg/dL (1.8-2.4); Potassium 4.1 mmol/L (3.5-5.1); Sodium 132 mmol/L (136-145); Total Protein 5.6 g/dL (6.4-8.2)
--- NOTE | 2023-06-05 08:24 | ECG_ITS ---
The [facility] Test Date: 2023-06-05 Pat Name: HENRIQUE HAILE Department: Room: [facility] Gender: Male Director Hr Communications: : 1940 Requested By: ELVIN THOMSON Order Number: [id number] Reading MD: CLARISA FALCON Measurements Intervals [place] Rate: 82 P: 76 NM: 225 QRS: 52 QRSD: 90 T: 69 QT: 357 QTc: 419 Interpretive Statements SINUS RHYTHM WITH FIRST DEGREE AV BLOCK WITH OCCASIONAL VENTRICULAR PREMATURE COMPLEXES LOW QRS VOLTAGE IN PRECORDIAL LEADS [QRS DEFLECTION < 1.0 mV IN CHEST LEADS] ANTEROSEPTAL MYOCARDIAL INFARCTION [40+ ms Q WAVE IN V1-V4], OF INDETERMINATE AGE Compared to ECG 06/04/2023 15:57:27 First degree AV block now present Left-axis deviation no longer present Myocardial infarct finding still present Electronically Signed On 06-05-2023 23:35:24 EDT by CLARISA FALCON
[2023-06-05 08:47] LABS: Glucometer 164 mg/dL (74-106)
[2023-06-05] MEDS: AMLODIPINE BESYLATE 5 MG TABLET PO (09:22)
[2023-06-05] MEDS: LACTATED RINGER'S SOLUTION 1,000 ML 50 ML IV (09:22)
[2023-06-05] MEDS: MAGNESIUM SULFATE IN WATER 2 GM/50 ML PREMIX IV (09:23)
[2023-06-05] MEDS: SODIUM POLYSTYRENE SULFON 15 GM/60 ML ORAL.SUSP KAYEXALATE 30 GM PO (09:24)
[2023-06-05] MEDS: CARVEDILOL 25 MG TABLET PO ×2 (09:24→19:48)
--- NOTE | 2023-06-05 09:58 | SWNOTE1 ---
SW received message and pt may need SNF, he is sleeping now. Pt lost his 4 weeks ago and has been declining.
--- NOTE | 2023-06-05 10:10 | PT.DAILY ---
Physical Therapy Daily Note PT Daily Note/Assess Start: 06/04/23 13:42 Freq: Status: Active Protocol: Document 06/05/23 10:00 STAR (Rec: 06/05/23 10:10 STAR [id number]) Visit Not Completed Visit Not Completed Visit Not Completed Due to: Pt level of alertness,Nursing request to hold Other Reason Visit Not Completed Nursing and PROCESSOR HELPER outside of room , reports patient was running halls all of previous pm, and has just settled down and fallen asleep. Request that PT hold this morning to allow patient to rest, if able okay to re-attempt this PM, but if not okay to hold for the day. Physical Therapy Daily Note/Assessment Time In/Time Out Time In 10:00 Time Out 10:00 GG. Functional Abilities and Goals-Complete for Swing Bed Patients Only [id number]. Self-Care [id number]. Mobility
--- NOTE | 2023-06-05 10:30 | CM.NOTE ---
Addendum entered by Gely Calle 06/06/23 10:56: Dr. Ellis- physician on rounding. Original Note: Rounds made with Dr. Barrett, PT and OT will evaluate pt today for discharge planning.
[2023-06-05 10:57] LABS: Glucometer 147 mg/dL (74-106)
[2023-06-05] MEDS: BUDESONIDE 0.5 MG/2 ML AMPULE NEB IH ×2 (11:39→23:30)
[2023-06-05] MEDS: IPRATROPIUM/ALBUTEROL SULFATE 3 ML AMPUL.NEB IH ×3 (11:39→23:30)
--- NOTE | 2023-06-05 11:52 | RESP.RT ---
pt on room air placed on 1L.
[2023-06-05] MEDS: ZIPRASIDONE MESYLATE 20 MG, WATER FOR INJECTION,STERILE 1.2 ML IM ×2 (12:13→19:49)
[2023-06-05] MEDS: OXYCODONE HCL/ACETAMINOPHEN 5MG/325MG 1 TAB PO (12:21)
[2023-06-05] MEDS: OXYCODONE HCL 5 MG TABLET PO (12:22)
--- NOTE | 2023-06-05 12:42 | P.PN_ITS ---
<Statement entered by Joelle Ellis, - 06/05/23 13:30> This documentation has been reviewed and approved. Due to Patient's worsening status and developing of peaked T waves on EKG and symptoms He was made changed to inpatient status and is expected to cross 2 midnights for medically necessary hospital care. Progress Note: Subjective Subjective Interval history: 06/05/23 0912 The patient is sleeping soundly in bed after receiving anxiolytics early this morning. The patient was reportedly very agitated and somewhat combative and confused overnight. He did not fall asleep until 530 this morning after receiving multiple doses of as needed Ativan. He was evaluated by PT/OT marcin glass and rehab strengthening is recommended. The pt has multiple abrasions from recent falls. The pt's hyperkalemia has resolved and his renal function is improving. He still has hypomagnesemia and this will be repleted today. Discharge planning will apply for a precert for SNF rehab placement. Exam Constitutional Vital Signs, click to edit/add: Last Vital Signs Temp 98.1 F 06/05/23 11:44 Pulse 70 06/05/23 11:54 Resp 18 06/05/23 11:44 BP 128/69 06/05/23 11:44 Pulse Ox 89 L 06/05/23 11:51 O2 Del Method Room Air 06/05/23 11:51 O2 Flow Rate 1 06/05/23 11:44 Common normals: no apparent distress Exam limitations: other limitations (Sedation) [facility] Common normals: normocephalic, head/scalp atraumatic and hearing grossly normal bilaterally Eye Common normals: conjunctivae normal and no scleral icterus General eye: normal appearance of both eyes Chest Common normals: inspection of chest normal Chest: symmetrical chest wall rise Respiratory Common normals: normal respiratory effort, no use of accessory muscles and clear to auscultation bilaterally Cardio Common normals: regular rate, regular rhythm, S1 normal heart sound, S2 normal heart sound, no murmurs and peripheral pulses 2+ throughout GI Common normals: Normal to inspection, nondistended, normoactive bowel sounds present, soft to palpation, non-tender and no hepatosplenomegaly Extremity Common normals: normal to inspection and no calf tenderness General: no clubbing and no cyanosis Neuro Common normals: moves all extremities Progress Note: Objective Labs Labs: Short CBC 06/05/23 Range/Units 06:24 WBC 9.5 (4.0-11.0) 10^3/uL Hgb 12.4 L (14.0-18.0) g/dL Hct 36.3 L (42.0-54.0) % Plt Count 96 L (150-450) 10^3/uL BMP 06/04/23 06/04/23 06/04/23 12:37 16:38 19:47 Sodium 130 L 128 L 129 L Potassium 6.1 H* 5.6 H 5.2 H Chloride 94 L 93 L 94 L Carbon Dioxide 27.3 27.6 26.9 BUN 20.0 H 22.0 H 24.0 H Creatinine 1.60 H 1.63 H 1.66 H Glucose 151 H 241 H 198 H Calcium 8.9 9.0 8.5 06/04/23 06/05/23 22:38 06:24 Sodium 130 L 132 L Potassium 5.3 H 4.1 Chloride 93 L 95 L Carbon Dioxide 30.2 26.8 BUN 25.0 H 20.0 H Creatinine 1.65 H 1.28 Glucose 170 H 147 H Calcium 8.9 8.2 L Liver Function 06/05/23 Range/Units 06:24 Total Bilirubin 0.5 (0.2-1.0) mg/dL AST 24 (15-37) U/L ALT 12 L (16-63) U/L Alkaline Phosphatase 93 (46-116) U/L Albumin 2.8 L (3.4-5.0) g/dL Progress Note: A&P Assessment and Plan (1) Hyperkalemia: Assessment and Plan: Acute * Resolved * K+ 4.1 today * Continue to hold Spironolactone for now * DC Kayexalate * CMP in AM (2) Hypomagnesemia: Assessment and Plan: Acute * Mild, Mag 1.6 today * Give 2gm Mag sulfate IVPB * Recheck mag level in AM (3) Acute bronchitis due to Rhinovirus: Assessment and Plan: Acute * Supportive care * Duonebs scheduled * OPEP for sputum mobilization (4) Acute renal failure: Assessment and Plan: Acute * Improving * Cr 1.28, GFR 54 on AM labs today * Continue gentle IVFs * Continue to hold metformin and spironolactone * Consider neph consult pending clinical course - no indicated currently as pt is improving w/ conservative measures * CMP in AM (5) Anxiety: Assessment and Plan: Chronic * Continue home paxil * PRN Vistaril and also Ativan if vistaril is not helping * PRN Geodon for severe agitation or combativeness - especially at night (6) Hypertension: Assessment and Plan: Chronic * Continue home Coreg & amlodipine Qualifiers: Hypertension type: primary hypertension Qualified Code(s): I10 - Essential (primary) hypertension (7) 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 * Hold home metformin * ACHS glucometer checks * SSI for glucose correction (8) Hyperlipidemia: Assessment and Plan: Chronic * Continue homes statin Qualifiers: Hyperlipidemia type: unspecified Qualified Code(s): E78.5 - Hyperlipidemia, unspecified (9) Chronic back pain: Assessment and Plan: Chronic * Continue home PRN oxycodone Qualifiers: Back pain location: low back pain Back pain laterality: unspecified Sciatica presence: unspecified whether sciatica present Qualified Code(s): M54.50 - Low back pain, unspecified; G89.29 - Other chronic pain (10) COPD (chronic obstructive pulmonary disease): Assessment and Plan: Chronic * Duonebs * Pt does not appear to be in exacerbation - high dose steroids not currently indicated Qualifiers: COPD type: unspecified COPD Qualified Code(s): J44.9 - Chronic obstructive pulmonary disease, unspecified
--- NOTE | 2023-06-05 12:56 | SWNOTE1 ---
SW attempted to speak with pt in regards to dc planning. Pt was moving the sheets on and off his legs. Pt voiced he was having trouble breathing. Nursing was outside of room and is aware. Advised to take deep breaths. Pt is able to answer questions with a few word sentences. Nurse voiced daughter was supposed to be here at 8:30am, but has not been here yet. Pt used ALEX phone and attempted to call pt's daughter, but could not remember the phone number. SW looked at chart and called and left message for daughter, La, waiting for call back. Pt may need SNF at discharge. Pt is a precert if SNF needed.
--- NOTE | 2023-06-05 15:43 | SWNOTE1 ---
SW was provided with other daughter's number, Erica. SW called Erica while in pt's room. Pt wanted to speak with her. Erica answered phone and pt attempted to talk with her. Pt's mouth was very dry, he was answering questions but daughter was having a hard time understanding. Pt handed phone to ALEX. Pt's daughter then expressed to ALEX she wants to speak with someone medically. She stated, this is not how her father was fucking yesterday. Pt's daughter voiced she was not happy and asked what we were giving him and she was going to come up there and take him out of there. She again asked to speak with someone medically and stated she is done talking to the social media marketer at this time. SW assured her that SW will find the nurse so she can speak with nurse. Nurse, Oma, was given the phone. Pt's daughter expressed to Oma her displeasure as well. SW notified department secretary and security of possibility of pt's daughter coming and she was not pleased with the condition she feels patient is in and was very upset on the phone using vulgar language. ALEX called pt's son Ej who was listed on contacts. ALEX spoke with Ej, he lives in [place]. He was aware his father was here and has spoken to La and Erica yesterday. He was here 2 weeks ago and his father was doing well. He voiced right now everyone having a hard time due to his mother passing away. ALEX did ask when it came to decisions who made them? He voiced his father would want Erica to make decisions. ALEX asked about the family dynamics? He voiced sometimes his sisters do not get along, but Erica is the one who makes most of the decisions. ALEX asked if Erica was moving in with pt, he voiced she is supposed to once she gets her license, drivers license. SW let him know that pt did not do very well with therapy and possibility of him needing to go to a facility. SW to check back with nursing to see if La has arrived or Erica. La and he significant other were in room speaking with nurse. Nursing was giving medical updates. La voiced several times that they were just shopping in [place] with pt on Sunday and pt was doing well, they went out to lunch and grocery shopping etc. ALEX and nursing asked if she noticed any confusion lately, she stated no. Nursing did ask if pt has been sleeping very well since pt's passed, daughter voiced he has been sleeping alright, but unsure of sleep patterns. Pt may be staying up all night at home as well. ALEX spoke with La and significant other in regards to discharge plans. ALEX advised them that it was recommended pt go to a facility for rehab to get stronger. La voiced no, she voiced she is not sending him to a facility and he is going home. ALEX advised for his safety it may be beneficial, she stated no. ALEX then asked if someone will be able to provide 24/7 care at home. She did voice Erica will be going to live with him. She stated she is off work tomorrow and and her significant other is off until June 24. ALEX offered home health services as well to educate them on various exercises and to continue to do therapy. She stated no. She voiced she used to work at [employer] and she used to do home health. She voiced she just wants to get him home and they will take care of him. She stated he is just nervous and anxious here and that is why he is like that, he does not like hospitals. She voiced he will be better at home. ALEX then offered to get him a walker for at home. She is open to this. She does not have a preference, she would like to use [facility] or place in [place]. ALEX to get script from nurse practitioner and work on walker. ALEX did ask La if she feels Erica will be on same page with this plan, she voiced yes. At this time families plan is to take pt home and care for him. ALEX updated nurse practitioner.
[2023-06-05 16:10] LABS: Glucometer 122 mg/dL (74-106)
[2023-06-05] MEDS: ATORVASTATIN CALCIUM 40 MG TABLET PO (19:48)
[2023-06-05 20:18] LABS: Glucometer 119 mg/dL (74-106)
[2023-06-05] MEDS: LORAZEPAM 0.5 MG TABLET PO (21:12)
[2023-06-05] MEDS: HYDROXYZINE PAMOATE 25 MG CAPSULE PO (21:12)
[2023-06-06] VITALS (13 sets, daily range): BP systolic 150–156; BP diastolic 75–83; PULSE 63–102; RESP 18–28; TEMP 37.1–37.3; O2SAT 92–96
[2023-06-06] MEDS: OXYCODONE HCL/ACETAMINOPHEN 5MG/325MG 1 TAB PO (02:51)
[2023-06-06] MEDS: OXYCODONE HCL 5 MG TABLET PO (02:52)
[2023-06-06] MEDS: ALBUTEROL SULFATE 2.5 MG/3 ML VIAL NEB IH (02:57)
[2023-06-06] MEDS: IPRATROPIUM/ALBUTEROL SULFATE 3 ML AMPUL.NEB IH ×2 (05:12→09:49)
[2023-06-06 05:44] LABS: Basophils Percent Auto 0.1 % (0.2-2.0); Eosinophils Percent Auto 0.1 % (0.9-7.0); Hemoglobin 12.1 g/dL (14.0-18.0); Immature Granulocytes Abs Auto 0.04 10^3/uL (0.00-0.03); Immature Granulocytes Pct Auto 0.4 % (0.0-0.5); Lymphocytes Absolute Auto 0.6 10^3/uL (1.2-3.8); Lymphocytes Percent Auto 5.4 % (20.5-60.0); Mean Corpuscular HGB Conc 34.6 g/dL (29.9-35.2); Mean Corpuscular Hemoglobin 30.8 pg (25.9-34.0); Mean Corpuscular Volume 89.1 fL (80.0-94.0); Mean Platelet Volume 11.3 fL (9.5-13.5); Monocytes Percent Auto 9.8 % (1.7-12.0); Neutrophils Absolute Auto 8.5 10^3/uL (1.4-6.5); Neutrophils Percent Auto 84.2 % (43.0-75.0); Platelet Count 111 10^3/uL (150-450); Red Blood Count 3.93 10^6/uL (4.70-6.10); Red Cell Distribution Width 11.5 % (11.0-15.0); White Blood Count 10.1 10^3/uL (4.0-11.0)
[2023-06-06 06:18] LABS: Alanine Aminotransferase 19 U/L (16-63); Albumin Level 2.9 g/dL (3.4-5.0); Alkaline Phosphatase 84 U/L (46-116); Anion Gap 9.3; Aspartate Amino Transferase 45 U/L (15-37); BUN Creatinine Ratio 15.2; Bilirubin Total 0.5 mg/dL (0.2-1.0); Calcium 8.1 mg/dL (8.5-10.1); Carbon Dioxide 29.2 mmol/L (21.0-32.0); Chloride 99 mmol/L (98-107); Estimated GFR (African America >60 (>=60); Estimated GFR (Non-African Ame >60 (>=60); Globulin 2.8 g/dL; Glucose 110 mg/dL (74-106); Potassium 3.5 mmol/L (3.5-5.1); Sodium 134 mmol/L (136-145); Total Protein 5.7 g/dL (6.4-8.2)
[2023-06-06 06:23] LABS: Magnesium 2.1 mg/dL (1.8-2.4)
[2023-06-06] MEDS: CARVEDILOL 25 MG TABLET PO (09:03)
[2023-06-06] MEDS: AMLODIPINE BESYLATE 5 MG TABLET PO (09:03)
--- NOTE | 2023-06-06 09:45 | P.DS_ITS ---
<Statement entered by Joelle Ellis DO - 06/07/23 09:11> This documentation has been reviewed and approved.Patient was also seen and evaluated at the time of discharge and agree with the above and discharge plan. DS: Providers Provider Date of admission: 06/05/23 12:03 Primary care physician: Siva Abraham MD Consults: 06/04/23 12:19 Occupational Therapy Eval and Treat Routine Reason for consultation: weakness Has provider been notified: No Physical Therapy Eval and Treat Routine Reason for consultation: weakness Has provider been notified: No Discharging clinician: Lashay Callejas DS: Diagnosis Discharge Diagnosis (1) Hyperkalemia: (2) Hypomagnesemia: (3) Acute bronchitis due to Rhinovirus: (4) Acute renal failure: (5) Anxiety: (6) Hypertension: Qualifiers: Hypertension type: primary hypertension Qualified Code(s): I10 - Essential (primary) hypertension (7) Non-insulin dependent diabetes mellitus: (8) Hyperlipidemia: Qualifiers: Hyperlipidemia type: unspecified Qualified Code(s): E78.5 - Hyperlipidemia, unspecified (9) Chronic back pain: Qualifiers: Back pain laterality: unspecified Back pain location: low back pain Sciatica presence: unspecified whether sciatica present Qualified Code(s): M54.50 - Low back pain, unspecified; G89.29 - Other chronic pain (10) COPD (chronic obstructive pulmonary disease): Qualifiers: COPD type: unspecified COPD Qualified Code(s): J44.9 - Chronic obstructive pulmonary disease, unspecified DS: Summary Hospital Course Hospital Course: The patient was admitted with acute renal failure and hyperkalemia, as well as acute bronchitis due to rhinovirus. His home spironolactone and metformin were held and he was given gentle IVFs. He was also treated with Kayexalate and lasix. His renal function returned to baseline and his hyperkalemia resolved with these measures. He also experienced anxiety, agitation and disorientation overnight which required anxiolytics and antipsychotic medications. He was eventually able to sleep and this behavior significantly improved. His family reported that he frequently is awake most of the night at home and sleeps during the day. The pt and family refused SNF rehab placement and home health services for strengthening. The pt is being discharged home in stable condition. His home spironolactone was held at discharge. He should follow up with his PCP in 5-7 days. We recommend a repeat BMP within 1-2 weeks to continue to monitor renal fx and potassium levels after spironolactone was discontinued. Time Spent with Patient Time attestation: Total time spent providing and/or coordinating discharge services: Time spent: greater than 30 minutes Specific discharge activities: Physical exam, discussion of discharge plan, questions answered. Exam Constitutional Vital Signs, click to edit/add: Last Vital Signs Temp 98.9 F 06/06/23 08:00 Pulse 90 06/06/23 09:43 Resp 18 06/06/23 08:00 BP 156/75 H 06/06/23 09:03 Pulse Ox 94 L 06/06/23 08:00 O2 Del Method Room Air 06/06/23 08:00 O2 Flow Rate 1 06/06/23 05:12 Common normals: no apparent distress, oriented x3 and alert General appearance: cooperative Orientation/consciousness: Yes awake HENMT Common normals: normocephalic and head/scalp atraumatic Eye Common normals: PERRL, EOMs intact bilaterally, conjunctivae normal and no scleral icterus Neck & C-Spine Common normals: no JVD Respiratory Common normals: normal respiratory effort, no use of accessory muscles and clear to auscultation bilaterally Effort & inspection: able to speak in complete sentences and symmetric chest movement Auscultation: other (DIANE anterior groan, clears with cough) Cardio Common normals: no JVD, regular rate, regular rhythm, S1 normal heart sound, S2 normal heart sound, no murmurs and peripheral pulses 2+ throughout GI Common normals: Normal to inspection, nondistended, normoactive bowel sounds present and soft to palpation Bladder/kidney exam: bladder normal to palpation Extremity Common normals: normal to inspection, full ROM, normal capillary refill and no pedal edema General: no clubbing Neuro Common normals: moves all extremities, no focal motor deficits and no sensory deficits noted Speech: speech normal Psych Common normals: mental status grossly normal and activity/motor behavior normal DS: Data Data Completed and Pending Labs on day of discharge: Labs from last 24 hours 06/06/23 06/05/23 06/05/23 05:03 20:09 16:09 WBC 10.1 RBC 3.93 L Hgb 12.1 L Hct 35.0 L MCV 89.1 MCH 30.8 MCHC 34.6 RDW 11.5 Plt Count 111 L MPV 11.3 Neut % (Auto) 84.2 H Lymph % (Auto) 5.4 L Hickman % (Auto) 9.8 Eos % (Auto) 0.1 L Baso % (Auto) 0.1 L Neut # (Auto) 8.5 H Lymph # (Auto) 0.6 L Hickman # (Auto) 1.0 H Eos # (Auto) 0.0 Baso # (Auto) 0.0 Abs Immat Gran (auto) 0.04 H Imm/Tot Granulo (auto) 0.4 Sodium 134 L Potassium 3.5 Chloride 99 Carbon Dioxide 29.2 Anion Gap 9.3 BUN 16.0 Creatinine 1.05 Est GFR ( Amer) >60 Est GFR (Non-Af Amer) >60 BUN/Creatinine Ratio 15.2 Glucose 110 H Calcium 8.1 L Magnesium 2.1 Total Bilirubin 0.5 AST 45 H ALT 19 Alkaline Phosphatase 84 Total Protein 5.7 L Albumin 2.9 L Globulin 2.8 Albumin/Globulin Ratio 1.0 POC Glucose 119 H 122 H 06/05/23 10:57 WBC RBC Hgb Hct MCV MCH MCHC RDW Plt Count MPV Neut % (Auto) Lymph % (Auto) Hickman % (Auto) Eos % (Auto) Baso % (Auto) Neut # (Auto) Lymph # (Auto) Hickman # (Auto) Eos # (Auto) Baso # (Auto) Abs Immat Gran (auto) Imm/Tot Granulo (auto) Sodium Potassium Chloride Carbon Dioxide Anion Gap BUN Creatinine Est GFR ( Amer) Est GFR (Non-Af Amer) BUN/Creatinine Ratio Glucose Calcium Magnesium Total Bilirubin AST ALT Alkaline Phosphatase Total Protein Albumin Globulin Albumin/Globulin Ratio POC Glucose 147 H Imaging Chest x-ray: Radiologist's impression: IMPRESSION: No acute heart or lung disease identified. Discharge Plan Discharge Disposition: Home, Self-Care Condition: Good Discharge Medications: Continued cyclobenzaprine 10 mg tablet 10 mg PO DAILY carvedilol 25 mg tablet 25 mg PO Q12H ipratropium-albuterol 0.5 mg-3 mg(2.5 mg base)/3 mL solution for nebulization 3 ml INHALATION Q4H PRN (Reason: shortness of breath or wheezing) (DME) Accu-Chek Guide test strips Strip MISCELLANEOUS amlodipine 5 mg tablet 5 mg PO DAILY oxycodone-acetaminophen 10-325 mg tablet 1 tab PO Q6H PRN (Reason: pain) paroxetine HCl 20 mg tablet 20 mg PO QAM albuterol sulfate 90 mcg/actuation HFA aerosol inhaler 2 inh INHALATION Q4H PRN (Reason: shortness of breath or wheezing) metformin 500 mg tablet extended release 24 hr 500 mg PO BID rosuvastatin 20 mg tablet 20 mg PO QPM Discontinued spironolactone 25 mg tablet 25 mg PO QAM Activity: ambulate only with your walker and increase activity as tolerated Diet: advance to your usual diet Print Language: Turkmen Patient Instructions: Acute Bronchitis (ED), Hyperkalemia (ED), Hypomagnesemia (ED) Activity Restrictions/Additional Instructions: - Recommend follow up BMP in 1-2 weeks to monitor renal function and potassium level. Spironolactone discontinued. Environmental Field Office Manager/Compensation Adjuster Instructions: Peter dumas [facility], location is [address] [place] [address]. Phone number is [phone]. They will call when walker is ready. Forms: Portal Instructions Follow Up Appointments: June 12 @ 11:45am with Dr. Abraham [phone] Discharge Date/Time: 06/06/23 10:29
[2023-06-06] MEDS: BUDESONIDE 0.5 MG/2 ML AMPULE NEB IH (09:49)
--- NOTE | 2023-06-06 10:27 | PT.DAILY ---
Physical Therapy Daily Note PT Daily Note/Assess Start: 06/04/23 13:42 Freq: Status: Active Protocol: Document 06/06/23 10:19 [id number] (Rec: 06/06/23 10:27 [id number]) Physical Therapy Daily Note/Assessment Time In/Time Out Time In 09:25 Time Out 09:37 Pain In Pain Level 0 Pain Out Pain Level 0 Subjective Subjective Patient received seated in chair at bedside. States he is hoping to go home today. Agreeable to participate with PT for walking only, no prolong standing or ther ex. Deactivated chair alarm prior to treatment. Therapeutic Activity Time Therapeutic Activity Minutes (minutes) 12 Therapeutic Activity Units 1 Therapeutic Activity Treatment Chair Transfer Ability Modified Independent Therapeutic Activity Comments Patient demonstrates safe chair transfers. Ambulated ~ 22 feet x 1 with RW with CGA + 1. No LOB, does verbalize fatigue and SOB after exertion , VC's to slow breath and breathe correctly. Placed in chair at bedside, CBWR and chair alarm reactivated. Total Physical Therapy Time Total Therapy Minutes 12 Total Physical Therapy Units 1 Summary Daily Note Summary Less impulsive in functional movements this date. No LOB with ambulating, does have SOB and fatigue after exertion. Would benefit from HH upon DC to address functional deficits .
--- NOTE | 2023-06-06 10:31 | CM.NOTE ---
Rounds made with Dr. Ellis, pt will discharge to home today. Pt continues to refuse any HH services at discharge. Pt A&Ox3 today and denies any weakness with ambulation.
--- NOTE | 2023-06-06 10:36 | SWNOTE1 ---
SW received call from [facility] and they have received referral for wheeled walker. They just need another diagnosis added, after reviewing pt's diagnosis's, they recommended placing COPD. SW added and re-sent.
--- NOTE | 2023-06-06 10:41 | CM.NOTE ---
Medical Outpatient Observation Notice discussed with pt, pt verbalizes understanding and signs paper. Original given to pt and copy placed on pt's chart.
--- NOTE | 2023-06-06 12:06 | SWNOTE1 ---
SW called and left pt's daughter La a voicemail in regards to walker. ALEX left the phone number and address for [facility] on the voicemail and let La know they will call when walker is ready.
--- NOTE | 2023-06-07 16:12 | CM.DCFOLLOWU ---
Person spoke with: patient How are you feeling? voiced he is coughing up green stuff and has not slept and does not feel well. Voiced he is having a hard time breathing and can hardly get out of bed How is your pain? does not feel well, not really pain Did you understand your discharge instructions? yes Do you have any questions about your discharge instructions? no Were you given any prescriptions at discharge? no Were you able to get your prescriptions filled? N/A Do you understand how to take your medications as ordered? yes Do you have any questions about your follow up appointment and do you plan to keep your follow up appointment? Pt voiced he was not discharged on an antibiotic and requested we call Leigh to get him on one. Advised pt to call Leigh's office. He said he did and they could not help. Advised pt to come back to ED if he is not feeling well and is short of breath and coughing up green stuff. He voiced he does not want to at this time. He voiced his daughter is at his home with him Is there anything else that you would like to discuss? no Questions/Comments/Concerns/Other: N/A
== END 2023-06-06 10:29 | disposition home or self-care (01) | DRG 641 ==
LOC: ER 10:40 → MS 11:43
PROVIDERS: Internal Medicine; Nurse Practitioner; Admitting Provider Family Medicine; Emergency Provider Emergency Medicine; PCP Family Medicine; Visit Provider Family Medicine
DX: E87.5 Hyperkalemia (principal); N17.9 Acute kidney failure, unspecified; E83.42 Hypomagnesemia; J20.6 Acute bronchitis due to rhinovirus; F41.9 Anxiety disorder, unspecified; I10 Essential (primary) hypertension; E11.9 Type 2 diabetes mellitus without complications; E78.5 Hyperlipidemia, unspecified; G89.29 Other chronic pain; M54.50 Low back pain, unspecified; J44.9 Chronic obstructive pulmonary disease, unspecified; I25.2 Old myocardial infarction; F17.210 Nicotine dependence, cigarettes, uncomplicated; Z79.899 Other long term (current) drug therapy; Z79.84 Long term (current) use of oral hypoglycemic drugs
CPT/HCPCS: 0202U; 36415; 71045; 80048; 80053; 82948; 83036; 83735; 83880; 84443; 84484; 85007; 85025; 85027; 93005; 94640; 94667; 94668; 94761; 96365; 96366; 96372; 96375; 97161; 97165; 97530; 99285; G0378; J2930

== ENCOUNTER 2023-06-15 11:27 | Outpatient (OUT) | payer MEDICARE, SELFPAY ==
[2023-06-15 11:57] LABS: Basophils Percent Auto 0.1 % (0.2-2.0); Eosinophils Percent Auto 0.2 % (0.9-7.0); Hematocrit 41.3 % (42.0-54.0); Immature Granulocytes Abs Auto 0.15 10^3/uL (0.00-0.03); Immature Granulocytes Pct Auto 0.9 % (0.0-0.5); Lymphocytes Absolute Auto 0.5 10^3/uL (1.2-3.8); Lymphocytes Percent Auto 2.9 % (20.5-60.0); Mean Corpuscular HGB Conc 33.9 g/dL (29.9-35.2); Mean Corpuscular Hemoglobin 30.1 pg (25.9-34.0); Mean Corpuscular Volume 88.8 fL (80.0-94.0); Mean Platelet Volume 9.9 fL (9.5-13.5); Monocytes Absolute Auto 0.5 10^3/uL (0.3-0.8); Monocytes Percent Auto 3.4 % (1.7-12.0); Neutrophils Absolute Auto 14.8 10^3/uL (1.4-6.5); Neutrophils Percent Auto 92.5 % (43.0-75.0); Platelet Count 127 10^3/uL (150-450); Red Blood Count 4.65 10^6/uL (4.70-6.10); Red Cell Distribution Width 11.7 % (11.0-15.0); White Blood Count 16.1 10^3/uL (4.0-11.0)
[2023-06-15 13:04] LABS: Anion Gap 14.3; BUN Creatinine Ratio 18.4; Carbon Dioxide 30.3 mmol/L (21.0-32.0); Chloride 97 mmol/L (98-107); Estimated GFR (African America >60 (>=60); Estimated GFR (Non-African Ame 55 (>=60); Glucose 141 mg/dL (74-106); Potassium 3.6 mmol/L (3.5-5.1); Sodium 138 mmol/L (136-145)
== END 2023-06-15 11:28 | disposition home or self-care (01) ==
LOC: LAB 11:28
PROVIDERS: PCP Family Medicine; Visit Provider Family Medicine
DX: E87.5 Hyperkalemia (principal); Z79.899 Other long term (current) drug therapy
CPT/HCPCS: 36415; 80048; 85025

== ENCOUNTER 2023-09-26 11:33 | Outpatient (OUT) | payer MEDICARE, SELFPAY ==
[2023-09-26 12:24] LABS: Microalbumin Urine Random <1.3 mg/dL (<=30.0)
[2023-09-26 12:41] LABS: Estimated Average Glucose 148 mg/dL; Glycohemoglobin A1C 6.8 % (4.5-6.2)
[2023-09-26 12:58] LABS: Basophils Percent Auto 0.3 % (0.2-2.0); Eosinophils Absolute Auto 0.4 10^3/uL (0.0-0.7); Eosinophils Percent Auto 4.3 % (0.9-7.0); Hematocrit 43.7 % (42.0-54.0); Hemoglobin 14.4 g/dL (14.0-18.0); Immature Granulocytes Abs Auto 0.07 10^3/uL (0.00-0.03); Immature Granulocytes Pct Auto 0.8 % (0.0-0.5); Lymphocytes Absolute Auto 2.3 10^3/uL (1.2-3.8); Lymphocytes Percent Auto 24.3 % (20.5-60.0); Mean Corpuscular Hemoglobin 30.2 pg (25.9-34.0); Mean Corpuscular Volume 91.6 fL (80.0-94.0); Mean Platelet Volume 11.3 fL (9.5-13.5); Monocytes Absolute Auto 0.8 10^3/uL (0.3-0.8); Monocytes Percent Auto 8.4 % (1.7-12.0); Neutrophils Absolute Auto 5.8 10^3/uL (1.4-6.5); Neutrophils Percent Auto 61.9 % (43.0-75.0); Platelet Count 96 10^3/uL (150-450); Red Blood Count 4.77 10^6/uL (4.70-6.10); Red Cell Distribution Width 12.3 % (11.0-15.0); White Blood Count 9.3 10^3/uL (4.0-11.0)
[2023-09-26 12:59] LABS: Alanine Aminotransferase 22 U/L (16-63); Albumin Globulin Ratio 1.3; Albumin Level 3.6 g/dL (3.4-5.0); Alkaline Phosphatase 125 U/L (46-116); Anion Gap 11.2; Aspartate Amino Transferase 23 U/L (15-37); BUN Creatinine Ratio 17.8; Bilirubin Direct 0.1 mg/dL (0.0-0.2); Bilirubin Total 0.3 mg/dL (0.2-1.0); Calcium 8.3 mg/dL (8.5-10.1); Carbon Dioxide 33.5 mmol/L (21.0-32.0); Chloride 99 mmol/L (98-107); Chol HDL Ratio 1.8; Cholesterol 98 mg/dL (<=200); Estimated GFR (African America 56 (>=60); Estimated GFR (Non-African Ame 46 (>=60); Globulin 2.8 g/dL; Glucose 174 mg/dL (74-106); HDL Cholesterol 55 mg/dL (40-60); LDL Cholesterol Calculated 17.4 mg/dL; Potassium 3.7 mmol/L (3.5-5.1); Sodium 140 mmol/L (136-145); Total Protein 6.4 g/dL (6.4-8.2); Triglycerides 128 mg/dL (<=150); VLDL CHOLESTEROL 25.6 mg/dL
[2023-09-26 13:16] LABS: Prostate Specific Antigen Scrn 1.54 ng/mL (<=4.00)
== END 2023-09-26 11:34 | disposition home or self-care (01) ==
LOC: LAB 11:36
PROVIDERS: PCP Family Medicine; Visit Provider Family Medicine
DX: E78.5 Hyperlipidemia, unspecified (principal); E11.65 Type 2 diabetes mellitus with hyperglycemia; I10 Essential (primary) hypertension; Z79.899 Other long term (current) drug therapy; Z12.5 Encounter for screening for malignant neoplasm of prostate
CPT/HCPCS: 36415; 80048; 80061; 80076; 82043; 83036; 85025; G0103

== ENCOUNTER 2023-12-31 10:57 | Emergency (ER) | payer MEDICARE, SELFPAY ==
[2023-12-31 11:00] VITALS: BP 166/49; PULSE 66; TEMP 36.5; O2SAT 95; BMI 23.7
--- NOTE | 2023-12-31 11:11 | ECG_ITS ---
The [facility] Test Date: 2023-12-31 Pat Name: HENRIQUE HAILE Department: Room: - Gender: Male Technology Lead: : 1940 Requested By: ELVIN THOMSON Order Number: [id number] Reading MD: CLARISA FALCON Measurements Intervals [place] Rate: 64 P: 90 OR: 180 QRS: 33 QRSD: 90 T: 75 QT: 394 QTc: 404 Interpretive Statements 1100 Sinus rhythm 1470 with occasional supraventricular premature complexes 3234 Anteroseptal myocardial infarction, age undetermined 4636 Possible inferior injury or acute infarct 8100 Low QRS voltage 9150 abnormal ECG Compared to ECG 06/05/2023 08:43:46 First degree AV block no longer present Myocardial infarct finding still present Electronically Signed On 12-31-2023 22:05:38 EDT by CLARISA FALCON
--- NOTE | 2023-12-31 11:22 | XR_ITS ---
The [address] [address] Patient Name: HENRIQUE HAILE MRN: [id number] date: 1940 Sex: M Assigned Patient Location: ER Current Patient Location: ED.MAIN Accession/Order Number: [id number] Exam Date: 12/31/2023 11:50 Report Date: 12/31/2023 12:43 At the request of: YOSSI MOCK Procedure: XR chest 2V EXAMINATION: XR chest 2V HISTORY: sob COMPARISON: 06/03/2020 TECHNIQUE: PA and lateral FINDINGS: LUNGS: No significant pulmonary parenchymal abnormalities. VASCULATURE: No increased pulmonary vasculature. PLEURA: No pneumothorax, effusion, or pleural thickening. CARDIAC: No cardiomegaly or cardiac silhouette abnormality. MEDIASTINUM: No visible mass or adenopathy. BONES: Mild degenerative disc disease and spondylosis without visible acute abnormalities. OTHER: Negative. XR/XR chest 2V IMPRESSION: No acute cardiopulmonary process Electronically authenticated by: SARAI MONROE Date: 12/31/2023 12:43
--- NOTE | 2023-12-31 11:23 | ED_ITS ---
HPI HPI - General Adult General Chief complaint: Shortness of Breath/Dyspnea Stated complaint: COUGH, SOB Time Seen by Provider: 12/31/23 11:19 Source: patient Mode of arrival: walk-in Limitations: no limitations History of Present Illness HPI narrative: Patient is a 83-year-old male who is presenting to the ER with chief complaint of 2 to 3 months of intermittent coughing throughout the day. Patient's intermittently coughing yellow and green sputum. Patient saw his PCP 2 to 3 weeks ago, Dr. Abraham. Patient has albuterol inhaler at home, he has no breathing treatments or nebulizer machines. Patient has no fever or chills. No chest pain or shortness of breath. No abdominal pain nausea vomiting. Patient believes that he needs additional steroids. Patient cannot remember the antibiotic he was on, it was a 6-day course, he thinks it was a Z-Breezy. Patient thinks he was on a Medrol Dosepak 2 to 3 weeks ago as well. Patient has not been on steroids this year. Patient had education by myself about using chronic steroids to help with breathing. 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 Patient has no sick contacts recently, no recent traveling. Patient believes that he needs satinder athing treatments and treatment for his bronchitis and steroids and then be discharged. Chart review was done from May of earlier this year where patient was admitted to the hospital for similar symptoms, his potassium was elevated and he was given hyperkalemic cocktail of medications to help with elevated potassium. All systems are negative except as noted/marked. All systems reviewed and ot herwise negative. Nurses note and vital signs reviewed and patient is not hypoxic. General: The patient appears well and in no apparent distress. Patient is resting comfortably on cart. Patient is not toxic, lethargic, or listless. Patient smells of tobacco products, still smokes half a pack a day and is trying to quit Skin: Warm, dry, no pallor noted. There is no rash noted. No petechiae, purpura. Head: Normocephalic, atraumatic Eye: Normal conjunctiva, no drainage, EOMI. PERRL Ears, Nose, Mouth, and Throat: oral mucosa is moist. Nares patent. Mouth without vesicles. Cardiovascular: Regular Rate and Rhythm, no murmur, gallop, rub Respiratory: Patient is in no distress, moderate decrease in breath sounds bilateral, equal. No rales, crackles heard at all. No accessory muscle use, lungs are clear to auscultation but significantly decreased breath sounds bilateral, equal, barrel chest; no wheezing, rales or rhonchi Back: non-tender, no CVA tenderness bilaterally to percussion. No CT LS midline pain GI: no tenderness to palpation, no masses appreciated. No rebound, guarding, or rigidity noted. No distention Musculoskeletal: Patient has full range of motion of all of the extremities, no motor, sensory, or focal neurological deficits Neurological: A&O x4, normal speech Psychiatric: Cooperative Related Data Home Medications ?Medication ?Instructions ?Recorded ?Confirmed albuterol sulfate 90 mcg/actuation 2 inh inhalation Q4H PRN shortness 06/04/23 12/31/23 aerosol inhaler of breath or wheezing amlodipine 5 mg tablet 5 mg PO DAILY 06/04/23 06/04/23 blood sugar diagnostic (Accu-Chek 06/04/23 06/04/23 Guide test strips) carvedilol 25 mg tablet 25 mg PO Q12H 06/04/23 06/04/23 cyclobenzaprine 10 mg tablet 10 mg PO DAILY 06/04/23 06/04/23 ipratropium 0.5 mg-albuterol 3 mg 3 ml inhalation Q4H PRN shortness 06/04/23 06/04/23 (2.5 mg base)/3 mL nebulization of breath or wheezing soln metformin 500 mg tablet,extended 500 mg PO BID 06/04/23 06/04/23 release 24 hr oxycodone-acetaminophen 10 mg-325 1 tab PO Q6H PRN pain 06/04/23 06/04/23 mg tablet paroxetine HCl 20 mg tablet 20 mg PO QAM 06/04/23 06/04/23 rosuvastatin 20 mg tablet 20 mg PO QPM 06/04/23 06/04/23 furosemide 40 mg tablet 40 mg PO DAILY 12/31/23 12/31/23 meclizine 25 mg tablet 25 mg PO .4 times per day 12/31/23 12/31/23 Previous Rx's ?Medication ?Instructions ?Recorded przeghgekqqrgbt-nmmxxnkndnhwgjy-MO 10 ml PO Q6H PRN cold symptoms 12/31/23 2 mg-30 mg-10 mg/5 mL oral syrup #200 mL (Bromfed DM) doxycycline hyclate 100 mg tablet 100 mg PO BID 10 days #20 tabs 12/31/23 prednisone 20 mg tablet 20 mg PO BID 5 days #10 tabs 12/31/23 Allergies Allergy/AdvReac Type Severity Reaction Status Date / Time No Known Drug Allergies Allergy Verified 06/04/23 06:04 Opioid HPI Opioid Management Most Recent Opioid Data: Last Pain Scale 0 06/06/23 10:19 06/06/23 Last Pain Intensity 0 06/06/23 10:19 06/06/23 Last ORT Total Score 0 06/04/23 12:17 06/04/23 Last ORT Risk Category Low Risk 06/04/23 12:17 06/04/23 [facility] Medical History (Updated 12/31/23 @ 12:38 by Partha Ace MD) COPD (chronic obstructive pulmonary disease) ?J44.9 - Chronic obstructive pulmonary disease, unspecified (ICD-10) Chronic back pain ?M54.9 - Dorsalgia, unspecified (ICD-10) ?G89.29 - Other chronic pain (ICD-10) Anxiety ?F41.9 - Anxiety disorder, unspecified (ICD-10) Hyperlipidemia ?E78.5 - Hyperlipidemia, unspecified (ICD-10) Non-insulin dependent diabetes mellitus Hypertension ?I10 - Essential (primary) hypertension (ICD-10) History of myocardial infarct at age less than 60 years ?I25.2 - Old myocardial infarction (ICD-10) Family History Aunt Family history of cancer Social History Within the past year, how often did you have a drink containing alcohol: never Score interpretation: A score less than 4 is consistent with normal alcohol consumption. 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 [employer] Highest level of school completed/degree received: 10th grade Do you want help with school or training: No Are you now , , , , never or living with a partner: Little interest or pleasure in doing things: not at all Feeling down, depressed, or hopeless: not at all Life stressors: recent of family or friend Life stressor details: passed four weeks ago Do you think of yourself as: straight/heterosexual Gender Identity: male Exam Constitutional Vital Signs, click to edit/add: Last Vital Signs Temp 97.7 F 12/31/23 11:00 Pulse 66 12/31/23 11:00 Resp 16 12/31/23 11:39 BP 166/49 H 12/31/23 11:00 Pulse Ox 98 12/31/23 11:39 O2 Del Method Room Air 12/31/23 11:00 Course Vital Signs Vital signs: Vital Signs Temperature 97.7 F 12/31/23 11:00 Pulse Rate 66 12/31/23 11:00 Respiratory Rate 20 12/31/23 11:00 Blood Pressure 166/49 H 12/31/23 11:00 Pulse Oximetry 95 12/31/23 11:00 Oxygen Delivery Method Room Air 12/31/23 11:00 Temperature 97.7 F 12/31/23 11:00 Pulse Rate 66 12/31/23 11:00 Respiratory Rate 16 12/31/23 11:39 Blood Pressure 166/49 H 12/31/23 11:00 Pulse Oximetry 98 12/31/23 11:39 Oxygen Delivery Method Room Air 12/31/23 11:00 Medical Decision Making MDM Narrative Medical decision making narrative: EKG shows no acute findings, patient chest x-ray shows no acute cardiopulmonary disease, no infiltrate, no effusion. Patient was initially given a DuoNeb breathing treatment that helped minimally. Patient was then given a second DuoNeb breathing treatment at his request. Patient had discussion of his last ER visit in May of this year where his potassium levels were high. Patient did not want IV or lab work at this time. Patient was just recently what sounds like on a Z-Breezy and a Medrol Dosepak 2 or 3 weeks ago. Patient stated that helped a little bit but not really. Patient is still having 3 months of intermittent productive yellow/green sputum. Patient will be placed on doxycycline, Medrol Dosepak. Patient understands that he cannot be on steroids more than 2 or 3 times a year. Patient will follow-up with and called his PCP today Dr. Abraham which he was going to do to follow-up for further management. Patient has no fly rail operator or lung physician. Patient was given Dr. Gonzalez name and number was written on the discharge paperwork by Idania RANDLE. Medical Records Medical records reviewed: Yes I reviewed the patient's medical records Imaging Data CT scan - pelvis: My impression: Chest x-ray shows no acute cardiopulmonary disease, no infiltrate, no effusion. Radiologist's impression: ITS Impressions Chest X-Ray 12/31/23 11:22 IMPRESSION: No acute cardiopulmonary process Electronically authenticated by: SARAI MONROE Date: 12/31/2023 12:43 ECG Data Attestation: I personally reviewed and interpreted this ECG as follows: (EKG interpretation. Normal sinus rhythm at 64 beats a minute. Normal axis deviation. No acute ST elevation, no acute ectopy. EKG compared to EKG on June 05, 2023.) Discharge Plan Discharge Chief Complaint: Shortness of Breath/Dyspnea Clinical Impression: Chronic bronchitis, Tobacco abuse, Tobacco abuse counseling Patient Disposition: Home, Self-Care Time of Disposition Decision: 12:40 Condition: Fair Mode of Transportation: Private Vehicle Prescriptions / Home Meds: New prednisone 20 mg tablet 20 mg PO BID 5 Days Qty: 10 0RF ojkrtctjamugwes-yurgkausd-TV [Bromfed DM] 2-30-10 mg/5 mL syrup 10 ml PO Q6H PRN (Reason: cold symptoms) Qty: 200 0RF doxycycline hyclate 100 mg tablet 100 mg PO BID 10 Days Qty: 20 0RF No Action cyclobenzaprine 10 mg tablet 10 mg PO DAILY carvedilol 25 mg tablet 25 mg PO Q12H ipratropium-albuterol 0.5 mg-3 mg(2.5 mg base)/3 mL solution for nebulization 3 ml INHALATION Q4H PRN (Reason: shortness of breath or wheezing) (DME) Accu-Chek Guide test strips Strip MISCELLANEOUS amlodipine 5 mg tablet 5 mg PO DAILY oxycodone-acetaminophen 10-325 mg tablet 1 tab PO Q6H PRN (Reason: pain) paroxetine HCl 20 mg tablet 20 mg PO QAM albuterol sulfate 90 mcg/actuation HFA aerosol inhaler 2 inh INHALATION Q4H PRN (Reason: shortness of breath or wheezing) metformin 500 mg tablet extended release 24 hr 500 mg PO BID rosuvastatin 20 mg tablet 20 mg PO QPM furosemide 40 mg tablet 40 mg PO DAILY meclizine 25 mg tablet 25 mg PO .4 times per day Print Language: Upper Sorbian Instructions: How to Stop Smoking (ED), How to Use a Metered-Dose Inhaler (ED), COPD (Chronic Obstructive Pulmonary Disease) (ED), Chronic Bronchitis (ED) Additional Instructions: Increase fluids at home, Gatorade, Powerade, or water. Alternate using DayQuil, NyQuil, and Flonase. Add Mucinex as well as needed. Alternate Tylenol and Motrin every 4 hours to help with fever control, body aches or joint pain. Use wpvs-cej-kzxdknj vitamin C, vitamin D3, and zinc to help fight infection and help with her immune system. Continue to stop smoking, call Dr. Abraham today to make a follow-up appointment. Use all ezql-niv-xeumlxb medications to help with your symptoms. Referrals: Siva Abraham MD [Primary Care Provider] - 1 week
[2023-12-31] MEDS: IPRATROPIUM/ALBUTEROL SULFATE 3 ML AMPUL.NEB IH ×2 (11:38→12:51)
[2023-12-31 11:39] VITALS: O2SAT 98
[2023-12-31 12:51] VITALS: PULSE 62; O2SAT 91
== END 2023-12-31 13:11 | disposition home or self-care (01) ==
PROVIDERS: Emergency Provider Emergency Medicine; PCP Family Medicine
DX: J42 Unspecified chronic bronchitis (principal); F17.210 Nicotine dependence, cigarettes, uncomplicated
CPT/HCPCS: 71046; 93005; 94640; 99284; 99406

== ENCOUNTER 2024-02-22 14:29 | Inpatient (IN) | payer MEDICARE, SELFPAY ==
[2024-02-22] VITALS (15 sets, daily range): BP systolic 96–145; BP diastolic 53–80; PULSE 69–112; TEMP 36.3–37.3; O2SAT 80–98; BMI 22.1; BMI 19.9
--- NOTE | 2024-02-22 14:34 | XR_ITS ---
The [address] [address] Patient Name: HENRIQUE HAILE MRN: [id number] date: 1940 Sex: M Assigned Patient Location: ER Current Patient Location: ER Accession/Order Number: [id number] Exam Date: 02/22/2024 15:22 Report Date: 02/22/2024 15:32 At the request of: ELLEN BISHOP Procedure: XR chest 1V EXAM: XR chest 1V at 1514 hours HISTORY: sob COMPARISON: 06/04/2023 TECHNIQUE: AP upright portable chest x-ray FINDINGS: A patchy infiltrate is now seen throughout the left mid and lower lung. The right lung is clear. There is no evidence of an effusion or pneumothorax. The heart is not enlarged and the vasculature is not distended. The osseous structures are grossly intact. XR/XR chest 1V IMPRESSION: Patchy infiltrate is now seen in the left mid and lower lung. There is no evidence of overt cardiac decompensation. Electronically authenticated by: DESEAN GOLDBERG Date: 02/22/2024 15:32
--- NOTE | 2024-02-22 14:34 | ECG_ITS ---
The [facility] Test Date: 2024-02-22 Pat Name: HENRIQUE HAILE Department: Room: - Gender: Male Manager Discovery: : 1940 Requested By: ELVIN THOMSON Order Number: [id number] Reading MD: CAROLINA FOSTER Measurements Intervals [place] Rate: 99 P: 73 MI: 152 QRS: 61 QRSD: 90 T: 69 QT: 352 QTc: 408 Interpretive Statements 1100 Sinus rhythm 1474 with frequent supraventricular premature complexes 1574 with frequent ventricular premature complexes 3433 Septal myocardial infarction, probably old 9150 abnormal ECG Compared to ECG 12/31/2023 11:11:38 Ventricular premature complex(es) now present Myocardial infarct finding still present Electronically Signed On 02-26-2024 6:53:31 EST by CAROLINA FOSTER
[2024-02-22] MEDS: IPRATROPIUM/ALBUTEROL SULFATE 3 ML AMPUL.NEB IH ×2 (14:55→22:16)
--- OUTSIDE RECORDS SUMMARY | 2024-02-22 14:55 | XMS_ITS | CCD ---
Author Organization [facility] Care Team Providers Care Inventory Representative Name Role Phone PHYSICIAN, DEFAULT Unavailable Unavailable PHYSICIAN, DEFAULT Unavailable Unavailable NADNELSY, DR SIVA Augustine Consulting Unavailable BERTO, DR SIVA Augustine Primary Care Unavailable NADERER, DR SIVA Augustine Admitting Unavailable NADERER, DR SIVA Augustine Attending Unavailable NADERER, DR SIVA Augustine Primary Care Unavailable NADERER, DR SIVA Augustine Admitting Unavailable NADERER, DR SIVA Augustine Attending Unavailable NADERER, DR SIVA Augustine Consulting Unavailable Siva Thomson MD Primary Care Provider Juan RANDLE, Crystal Unavailable BERTO, SIVA Attending Unavailable NADERER, SIVA Attending Unavailable NADERER, SIVA Attending Unavailable NADERER, SIVA Attending Unavailable NADERER, SIVA Attending Unavailable NADERER, SIVA Attending Unavailable Medications Current Medications Medication Drug Class(es) Dates Sig (Normalized) Sig (Original) acetaminophen 325 mg / HYDROcodone bitartrate 5 mg oral tablet (2 sources) Opioid Agonist Start: 04-09-2023 End: 05-08-2023 take 2 tablets by mouth four times daily as needed for pain HYDROcodone-acetam inophen ([place]) 5-325 MG tablet Indications: DDD (degenerative disc disease), lumbar Take 2 tablets by mouth 4 (four) times a day as needed for moderate pain or severe pain for up to 15 days 120 tablet 0 04/23/2023 05/08/2023 Active acetaminophen 325 mg / oxyCODONE hydrochloride 10 mg oral tablet (13 sources) Opioid Agonist Start: 10-25-2023 End: 02-27-2024 take 1 tablet by mouth four times daily as needed for pain oxyCODONE-acetamin ophen (Percocet) 10-325 MG tablet Indications: DDD (degenerative disc disease), lumbar Take 1 tablet by mouth 4 (four) times a day as needed for severe pain 120 tablet 01/28/2024 02/27/2024 Active [id number] 200 actuat albuterol 0.09 mg/actuat metered dose inhaler (11 sources) beta2-Adrenergic Agonist Start: 12-26-2023 take 2 puff(s) by inhalation every four hours as needed albuterol HFA 90 mcg/act inhaler Indications: Chronic obstructive pulmonary disease, unspecified (CMS/HCC) INHALE 2 PUFFS EVERY 4 HOURS NEEDED FOR SHORTNESS OF BREATH 18 g 3 12/26/2023 Active Start: 07-05-2023 take 2 puff(s) by in halation every four hours albuterol HFA 90 mcg/act inhaler Indications: Chronic obstructive pulmonary disease, unspecified (CMS/HCC) Inhale 2 puffs every 4 (four) hours if needed for shortness of breath 54 g 3 07/05/2023 Active take 2 puff(s) by in halation every four hours for wheezing albuterol HFA 90 mcg/act inhaler Inhale 2 puffs every 4 (four) hours if needed for wheezing 0 Active albuterol 0.833 mg/ml / ipratropium bromide 0.167 mg/ml inhalation solution (10 sources) Anticholinergic, beta2-Adrenergic Agonist Start: 12-17-2023 ipratropium-albuterol (Duo-Neb) 0.5-2.5 mg/3 mL nebulizer solution Indications: Chronic obstructive pulmonary disease, unspecified COPD type (CMS/HCC) USE 1 VIAL PER NEBULIZER EVERY 4 HOURS NEEDED 540 mL 4 12/17/2023 Active Start: 07-09-2023 ipratropium-al buterol (Duo-Neb) 0.5-2.5 mg/3 mL nebulizer solution Indications: Chronic obstructive pulmonary disease, unspecified COPD type (CMS/HCC) USE 1 VIAL PER NEBULIZER EVERY 4 HOURS NEEDED 270 mL 9 07/09/2023 Active amLODIPine 5 mg oral tablet (1 source) Dihydropyridine Calcium Channel Julius take 1 tablet by mouth in the morning amLODIPine (Norvasc) 5 MG tablet Take 5 mg by mouth in the morning. 0 Active carvedilol 25 mg oral tablet (11 sources) alpha-Adrenergic Julius, beta-Adrenergic Julius Start: take 1 tablet by mouth twice daily carvedilol (Coreg) 25 MG tablet Indications: Essential hypertension, benign (CMS/HCC) TAKE ONE TABLET BY MOUTH TWICE A DAY 180 tablet 01/10/2024 Active Start: 10-22-2023 take 1 tablet by yousif th twice daily carvedilol (Coreg) 25 MG tablet Indications: Essential hypertension, benign (CMS/HCC) TAKE ONE TABLET BY MOUTH TWICE A DAY 180 tablet 10/22/2023 Active take 1 tablet by yousif th in the morning carvedilol (Coreg) 25 MG tablet Take 25 mg by mouth in the morning and 25 mg in the evening. Take with meals. 0 Active cefdinir 300 mg oral capsule (4 sources) Cephalosporin Antibacterial Start: 12-17-2023 End: 12-27-2023 take 1 capsule by mouth in the morning cefdinir (Omnicef) 300 MG capsule Indications: Upper respiratory tract infection, unspecified type Take 1 capsule (300 mg) by mouth in the morning and 1 capsule (300 mg) before bedtime. Do all this for 10 days. 20 capsule 12/17/2023 12/27/2023 Active cyclobenzaprine hydrochloride 10 mg oral tablet (11 sources) Muscle Relaxant Start: 12-04-2023 take 1 tablet by mouth in the morning, then take 1 tablet by mouth in the evening, then take 1 tablet by mouth at bedtime cyclobenzaprine (Flexeril) 10 MG tablet Indications: DDD (degenerative disc disease), lumbar Take 1 tablet (10 mg) by mouth in the morning and 1 tablet (10 mg) in the evening and 1 tablet (10 mg) before bedtime. 90 tablet 3 12/04/2023 Active Start: 06-28-2023 End: 06-27-2024 take 0.5 tablet by mouth in the morning, then take 0.5 tablet by mouth in the evening, then take 0.5 tablet by mouth at bedtime cyclobenzaprine (Flexeril) 10 MG tablet Indications: DDD (degenerative disc disease), lumbar Take 0.5 tablets (5 mg) by mouth in the morning and 0.5 tablets (5 mg) in the evening and 0.5 tablets (5 mg) before bedtime. 45 tablet 5 06/28/2023 06/27/2024 Active take 5 mg by mouth i n the morning, then take 5 mg by mouth in the evening, then take 5 mg by mouth at bedtime cyclobenzaprine (Flexeril) 10 MG tablet Take 5 mg by mouth in the morning and 5 mg in the evening and 5 mg before bedtime. 0 Active furosemide 40 mg oral tablet (10 sources) Loop Diuretic Start: 10-25-2023 take 1 tablet by mouth once daily furosemide (Lasix) 40 MG tablet Indications: Bilateral leg edema TAKE 1 TABLET BY MOUTH DAILY 30 tablet 3 10/25/2023 Active glipiZIDE 10 mg oral tablet (11 sources) Sulfonylurea take 1 tablet by mouth in the morning glipiZIDE (Glucotrol) 10 MG tablet Take 10 mg by mouth in the morning and 10 mg in the evening. Take before meals. Active irbesartan 150 mg oral tablet (11 sources) Angiotensin 2 Receptor Julius irbesartan (Avapro) 150 MG tablet Take 75 mg by mouth 1 (one) time each day Active 24 hr isosorbide mononitrate 30 mg extended release oral tablet (10 sources) Nitrate Vasodilator take 1 tablet by mouth once daily isosorbide mononitrate ER (Imdur) 30 MG 24 hr tablet Take 1 tablet every day by oral route for 90 days. Active levoFLOXacin 500 mg oral tablet (1 source) Quinolone Antimicrobial take 1 tablet by mouth in the morning levoFLOXacin (Levaquin) 500 MG tablet Take 500 mg by mouth in the morning. 0 Active meclizine hydrochloride 25 mg oral tablet (11 sources) Antiemetic Start: 12-10-2023 End: 12-20-2023 take 1 tablet by mouth four times daily as needed for dizziness meclizine (Antivert) 25 MG tablet Indications: Vertigo Take 1 tablet (25 mg) by mouth 4 (four) times a day as needed for dizziness 60 tablet 3 12/20/2023 Active 24 hr metFORMIN hydrochloride 500 mg extended release oral tablet (11 sources) Biguanide Start: 01-10-2024 take 2 tablets by mouth twice daily metFORMIN XR (Glucophage-XR) 500 MG 24 hr tablet Indications: Type 2 diabetes mellitus with hyperglycemia, without long-term current use of insulin (CMS/HCC) TAKE TWO TABLETS BY MOUTH TWICE A DAY 360 tablet 01/10/2024 Active Start: 10-22-2023 take 2 tablets by mo [facility] twice daily metFORMIN XR (Glucophage-XR) 500 MG 24 hr tablet Indications: Type 2 diabetes mellitus with hyperglycemia, without long-term current use of insulin ([facility]) TAKE TWO TABLETS BY MOUTH TWICE A DAY 360 tablet 10/22/2023 Active take 2 tablets by mo [facility] in the morning metFORMIN (Glucophage) 500 MG tablet Take 1,000 mg by mouth in the morning and 1,000 mg in the evening. Take with meals. 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 4 MG SL tablet Indications: 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) Place 1 tablet (0.4 mg) under the tongue every 5 (five) minutes if needed for chest pain 90 tablet 3 01/03/2024 Active nitroglycerin (N itrostat) 0.[address] 0.4 mg under the tongue every 5 (five) minutes if needed for chest pain Active PARoxetine hydrochloride 20 mg oral tablet (11 sources) Serotonin Reuptake Inhibitor Start: 05-25-2023 End: 05-24-2024 take 1 tablet by mouth in the morning PARoxetine (Paxil) 20 MG tablet Indications: Generalized anxiety disorder ([facility]) Take 1 tablet (20 mg) by mouth in the morning. 30 tablet 11 05/25/2023 05/24/2024 Active take 1 tablet by mouth in the mo [facility] PARoxetine (Paxil) 20 MG tablet Take 20 mg by mouth in the morning. 0 Active pioglitazone 30 mg oral tablet (11 sources) Peroxisome Proliferator Receptor alpha Agonist, Peroxisome Proliferator Receptor gamma Agonist, Thiazolidinedione take 1 tablet by mouth in the morning pioglitazone (Actos) 30 MG tablet Take 30 mg by mouth in the morning. Active predniSONE 50 mg oral tablet (7 sources) Start: End: take 1 tablet by mouth once daily predniSONE (Deltasone) 50 MG tablet Indications: Acute non-recurrent pansinusitis Take 1 tablet (50 mg) by mouth Daily for 6 days 6 tablet 12/20/2023 12/26/2023 Active Start: 09-19-2023 End: 12-20-2023 take 6 tablets by mouth once daily, then take 4 tablets by mouth once daily, then take 2 tablets by mouth once daily, then take 1 tablet by mouth once daily predniSONE (Deltasone) 10 MG tablet Indications: COPD with acute exacerbation (CMS/HCC) 6 PO daily x 3 days, 4 PO daily x 3 days, 2 PO daily x 3 days, 1 PO daily x 3 days 39 tablet 11/27/2023 12/20/2023 Discontinued roflumilast 0.5 mg oral tablet (11 sources) Phosphodiesterase 4 Inhibitor take 1 tablet by mouth once daily Roflumilast (Daliresp) 500 MCG tablet Take 500 mcg by mouth 1 (one) time each day Active rosuvastatin calcium 20 mg oral tablet (11 sources) HMG-CoA Reductase Inhibitor Start: 01-10-20 take 1 tablet by mouth once daily rosuvastatin (Crestor) 20 MG tablet Indications: Dyslipidemia (CMS/HCC) TAKE ONE TABLET BY MOUTH EVERY DAY 90 tablet 01/10/2024 Active Start: 10-22-2023 take 1 tablet by yousif th once daily rosuvastatin (Crestor) 20 MG tablet Indications: Dyslipidemia (CMS/HCC) TAKE ONE TABLET BY MOUTH EVERY DAY 90 tablet 10/22/2023 Active take 1 tablet by yousif th in the morning rosuvastatin (Crestor) 20 MG tablet Take 20 mg by mouth in the morning. 0 Active spironolactone 25 mg oral tablet (11 sources) Aldosterone Antagonist Start: 01-10-2024 take 1 tablet by mouth once daily spironolactone (Aldactone) 25 MG tablet Indications: Essential hypertension, benign (CMS/HCC) TAKE ONE TABLET BY MOUTH EVERY DAY 90 tablet 01/10/2024 Active Start: 10-22-2023 take 1 tablet by yousif th once daily spironolactone (Aldactone) 25 MG tablet Indications: Essential hypertension, benign (CMS/HCC) TAKE ONE TABLET BY MOUTH EVERY DAY 90 tablet 10/22/2023 Active take 1 tablet by yousif th in the morning spironolactone (Aldactone) 25 MG tablet Take 25 mg by mouth in the morning. 0 Active traZODone hydrochloride 50 mg oral tablet (10 sources) Serotonin Reuptake Inhibitor Start: 08-30-2023 take 1 tablet by mouth once daily traZODone (Desyrel) 50 MG tablet Indications: Primary insomnia TAKE 1 TABLET BY MOUTH DAILY 30 tablet 3 08/30/2023 Active triamcinolone acetonide 5 mg/ml topical cream (2 sources) Corticosteroid Start: 01-29-2024 triamcinolone (Kenalog) 0.5 % cream Indications: Cracked skin Apply topically 3 (three) times a day 60 g 2 01/29/2024 Active Start: 01-29-2024 triamcinolone (Kenalog) 0.5 % cream Indications: Cracked skin Apply topically 3 (three) times a day 60 g 2 01/29/2024 Active Problems Active Problems Problem Classification Problem Date Documented Da te Episodic/Chronic Anxiety disorders (10 sources) Generalized anxiety disorder; Translations: [Generalized anxiety disorder] Onset: 05-23-2023 05-23-2023 Chronic Chronic kidney disease (10 sources) Chronic kidney disease stage 3A ; Translations: [CKD stage 3a, GFR 45-59 ml/min] Onset: 09-26-2023 09-26-2023 Chronic Chronic obstructive pulmonary disease and bronchiectasis (20 sources) Chronic obstructive lung disease; Translations: [Chronic obstructive pulmonary disease, unspecified] Onset: 05-23-2023 Resolved: 10-17-2023 05-23-2023 Chronic Chronic ulcer of skin (6 sources) Ischemic ulcer of skin; Translations: [Non-pressure chronic ulcer of skin of other sites limited to breakdown of skin] Onset: 01-29-2024 01-29-2024 Chronic Conditions associated with dizziness or vertigo (2 sources) Vertigo; Translations: [Dizziness and giddiness] 12-20-2023 Episodic Coronary atherosclerosis and other heart disease (15 sources) Coronary arteriosclerosis; Translations: [Atherosclerotic heart disease of [place] coronary artery without angina pectoris] Onset: 05-23-2023 05-23-2023 Chronic Diabetes mellitus with complications (18 sources) Type 2 diabetes mellitus with hyperglycemia; Translations: [Hyperglycemia due to type 2 diabetes mellitus] Onset: 06-29-2022 Chronic Disorders of lipid metabolism (11 sources) Hyperlipidemia, unspecified; Translations: [Dyslipidemia] Onset: 07-05-2022 05-23-2023 Chronic Essential hypertension (11 sources) Essential (primary) hypertension; Translations: [Benign essential hypertension] Onset: 07-05-2022 05-23-2023 Chronic Miscellaneous mental health disorders (10 sources) Primary insomnia; Translations: [Primary insomnia] Onset: 06-13-2023 06-13-2023 Chronic Other aftercare (1 source) Other correction (current) drug therapy; Translations: [OTH RESIDENTIAL CURRENT DRUG THERAPY] Onset: 07-05-2022 Episodic Other skin disorders (4 sources) Fissure in skin; Translations: [Changes in skin texture] Onset: 01-29-2024 01-29-2024 Episodic Other upper respiratory infections (10 sources) Acute pansinusitis; Translations: [Acute pansinusitis, unspecified] Onset: 12-20-2023 Resolved: 01-29-2024 12-20-2023 Episodic Spondylosis; intervertebral disc disorders; other back problems (20 sources) Degeneration of lumbar intervertebral disc; Translations: [Other intervertebral disc degeneration, lumbar region] Onset: 05-23-2023 04-23-2023 Chronic Past or Other Problems Problem Classification Problem Date Documented Da te Episodic/Chronic Acute and unspecified renal failure (10 sources) Acute renal failure syndrome; Translations: [Acute kidney failure, unspecified] Onset: 06-13-2023 Resolved: 10-17-2023 10-17-2023 Episodic Fluid and electrolyte disorders (10 sources) Hyperkalemia; Translations: [Hyperkalemia] Onset: 06-13-2023 Resolved: 07-24-2023 07-24-2023 Episodic Other aftercare (9 sources) Long-term current use of drug therapy; Translations: [Other termite helper (current) drug therapy] Onset: 06-13-2023 06-13-2023 Episodic Other aftercare (1 source) Patient encounter status; Translations: [Other correction (current) drug therapy] Onset: 06-13-2023 06-13-2023 Episodic Other screening for suspected conditions (not mental disorders or infectious disease) (11 sources) Encounter for screening for malignant neoplasm of prostate; Translations: [Patient encounter status] Onset: 07-05-2022 07-24-2023 Episodic Residual codes; unclassified (10 sources) Tobacco user; Translations: [Tobacco use] Onset: 05-23-2023 05-23-2023 Episodic Residual codes; unclassified (10 sources) Bilateral lower limb edema; Translations: [Localized edema] Onset: 07-24-2023 07-24-2023 Episodic Results Test Name Value Interpretation Reference Range Facility CBC AUTO DIFFon 06-29-2022 BASO # 0.0 103/ul Normal 0.0-0.1 [facility] Comment on above: Performed By: #### C BC #### [facility] [address] [place] [address] Dr. Angelo Garcia Basophils/100 WBC (Bld) 0.5 % Normal 0.2-2.0 [facility] Comment on above: Performed By: #### C BC #### [facility] [address] [place] [address] Dr. Angelo Garcia EO # 0.3 103/ul Normal 0.0-0.7 [facility] Comment on above: Performed By: #### C BC #### [facility] [address] [place] [address] Dr. Angelo Garcia Eosinophils/100 WBC (Bld) 3.3 % Normal 0.9-7.0 [facility] Comment on above: Performed By: #### C BC #### [facility] [address] [place] [address] Dr. Angelo Garcia Erythrocyte distribution width (RBC) [Ratio] 11.9 % Normal 11.0-15.0 [facility] Comment on above: Performed By: #### C BC #### [facility] [address] [place] [address] Dr. Angelo Garcia Hematocrit (Bld) [Volume fraction] 42.3 % Normal 42.0-54.0 [facility] Comment on above: Performed By: #### C BC #### [facility] [address] [place] [address] Dr. Angelo Garcia Hemoglobin (Bld) [Mass/Vol] 14.4 g/dL Normal 14.0-18.0 [facility] Comment on above: Performed By: #### C BC #### [facility] [address] [place] [address] Dr. Angelo Garcia IG # 0.03 10e3/ul Normal 0.00-0.03 [facility] Comment on above: Performed By: #### C BC #### [facility] [address] [place] [address] Dr. Angelo Garcia IG % 0.4 % Normal 0.0-0.5 [facility] Comment on above: Performed By: #### C BC #### [facility] [address] [place] [address] Dr. Angelo Garcia LYMPH # 2.1 103/ul Normal 1.2-3.8 [facility] Comment on above: Performed By: #### C BC #### [facility] [address] [place] [address] Dr. Angelo Garcia Lymphocytes/100 WBC (Bld) 28.3 % Normal 20.5-60.0 [facility] Comment on above: Performed By: #### C BC #### [facility] [address] [place] [address] Dr. Angelo Garcia MANUAL DIFF REQ NO Normal [facility] Comment on above: Performed By: #### C BC #### [facility] [address] [place] [address] Dr. Angelo Garcia MCH (RBC) [Entitic mass] 31.0 pg Normal 25.9-34.0 [facility] Comment on above: Performed By: #### C BC #### [facility] [address] [place] [address] Dr. Angelo Garcia MCHC (RBC) [Mass/Vol] 34.0 g/dL Normal 29.9-35.2 [facility] Comment on above: Performed By: #### C BC #### [facility] [address] [place] [address] Dr. Angelo Garcia MCV (RBC) [Entitic vol] 91.0 fL Normal 80.0-94.0 [facility] Comment on above: Performed By: #### C BC #### [facility] [address] [place] [address] Dr. Angelo Garcia MONO # 0.8 103/ul Normal 0.3-0.8 [facility] Comment on above: Performed By: #### C BC #### [facility] [address] [address] [address] Angelo Garcia Monocytes/100 WBC (Bld) 10.0 % Normal 1.7-12.0 [facility] Comment on above: Performed By: #### C BC #### [facility] [address] [address] [address] Angelo Garcia NEUT # 4.4 103/ul Normal 1.4-6.5 [facility] Comment on above: Performed By: #### C BC #### [facility] [address] [address] [address] Angelo Garcia Neutrophils/100 WBC (Bld) 57.5 % Normal 43.0-75.0 [facility] Comment on above: Performed By: #### C BC #### [facility] [address] [place] [address] Dr. Angelo Garcia Platelet mean volume (Bld) [Entitic vol] 9.9 fL Normal 9.5-13.5 [facility] Comment on above: Performed By: #### C BC #### [facility] [address] [place] [address] Dr. Angelo Garcia PLT 123 103/ul Critically low 150-450 [facility] Comment on above: Performed By: #### C BC #### [facility] [address] [place] [address] Dr. Angelo Garcia RBC 4.65 106/ul Critically low 4.70-6.10 [facility] Comment on above: Performed By: #### C BC #### [facility] [address] [place] [address] Dr. Angelo Garcia WBC 7.6 103/ul Normal 4.0-11.0 [facility] Comment on above: Performed By: #### C BC #### [facility] [address] [place] [address] Dr. Angelo Garcia GLYCOHEMOGLOBIN A1Con 2022 ADA RECOMMENDATION SEE BELOW Normal [facility] Comment on above: Result Comment: ADA RECOMMENDED LIMIT 4.0 - 6.0 ADA THERAPEUTIC TARGET < 7.0 ACTION SUGGESTED > 7.0 Performed By: #### A 1C #### [facility] [address] [place] [address] Dr. Angelo Garcia Glucose [Mass/Vol] 183 mg/dL Normal [facility] Comment on above: Performed By: #### A 1C #### [facility] [address] [address] [address] Angelo Garcia HbA1c (Bld) [Mass fraction] 8.0 % Critically high 4.5-6.2 [facility] Comment on above: Performed By: #### A 1C #### [facility] [address] [place] [address] Dr. Angelo Garcia LIPID PROFILEon 06-29-2022 CHOL-HDL RATIO NORM SEE BELOW Normal [facility] Comment on above: Result Comment: 3.3 - 4.4 LOW RISK 4.4 - 7.1 AVERAGE RISK 7.1 - 11.0 MODERATE RISK >11.0 HIGH RISK Performed By: #### L IVER, LIPID, BMP #### [facility] [address] [place] [address] Dr. Angelo Garcia Cholesterol [Mass/Vol] 101 mg/dL Normal <=200 [facility] Comment on above: Performed By: #### L IVER, LIPID, BMP #### [facility] [address] [place] [address] Dr. Angelo Garcia Cholesterol in HDL [Mass/Vol] 45 mg/dL Normal 40-60 [facility] Comment on above: Performed By: #### L IVER, LIPID, BMP #### [facility] [address] [place] [address] Dr. Angelo Garcia Cholesterol in LDL [Mass/Vol] -3.2000 mg/dL Normal [facility] Comment on above: Performed By: #### L IVER, LIPID, BMP #### [facility] [address] [place] [address] Dr. Angelo Garcia Cholesterol.total/Cho lesterol in HDL [Mass ratio] 2.2 {ratio} Normal [facility] Comment on above: Performed By: #### L IVER, LIPID, BMP #### [facility] [address] [address] [address] Angelo Garcia HDL NORMAL > or = 60 mg/dl - LO W CARDIOVASCULAR RISK <40 mg/dl - HIGH CARDIOVASCULAR RISK Normal [facility] Comment on above: Performed By: #### L IVER, LIPID, BMP #### [facility] [address] [address] [address] Angelo Garcia LDL CALC NORMAL SEE BELOW Normal [facility] Comment on above: Result Comment: <100 mg/dl OPTIMAL 100 - 129 mg/dl NEAR OR ABOVE OPTIMAL 130 - 159 mg/dl BORDERLINE HIGH 160 - 189 mg/dl HIGH >190 mg/dl VERY HIGH Performed By: #### L IVER, LIPID, BMP #### [facility] [address] [address] [address] Angelo Garcia Triglyceride [Mass/Vol] 296 mg/dL Critically high <=150 [facility] Comment on above: Performed By: #### L IVER, LIPID, BMP #### [facility] [address] [address] [address] Angelo Garcia VLDL CALC 59.2 mg/dL Normal [facility] Comment on above: Performed By: #### L IVER, LIPID, BMP #### [facility] [address] [address] [address] Angelo Garcia LIVER PROFILEon 06-29-2022 Albumin [Mass/Vol] 3.6 g/dL Normal 3.4-5.0 [facility] Comment on above: Performed By: #### L IVER, LIPID, BMP #### [facility] [address] [address] [address] Angelo Garcia Albumin/Globulin [Mass ratio] 1.2 {ratio} Normal [facility] Comment on above: Performed By: #### L IVER, LIPID, BMP #### [facility] [address] [address] [address] Angelo Garcia ALP [Catalytic activity/Vol] 89 U/L Normal 46-116 [facility] Comment on above: Performed By: #### L IVER, LIPID, BMP #### [facility] [address] [address] [address] Angelo Garcia ALT [Catalytic activity/Vol] 25 U/L Normal 16-63 [facility] Comment on above: Performed By: #### L IVER, LIPID, BMP #### [facility] [address] [address] [address] Angelo Garcia AST [Catalytic activity/Vol] 15 U/L Normal 15-37 [facility] Comment on above: Performed By: #### L IVER, LIPID, BMP #### [facility] [address] [address] [address] Angelo Garcia BILI, CONJUGATED 0.1 mg/dL Normal 0.0-0.2 [facility] Comment on above: Performed By: #### L IVER, LIPID, BMP #### [facility] [address] [place] [address] Dr. Angelo Garcia Bilirubin [Mass/Vol] 0.4 mg/dL Normal 0.2-1.0 [facility] Comment on above: Performed By: #### L IVER, LIPID, BMP #### [facility] [address] [address] [address] Angelo Garcia Globulin (S) [Mass/Vol] 3.1 g/dL Normal [facility] Comment on above: Performed By: #### L IVER, LIPID, BMP #### [facility] [address] [address] [address] Angelo Garcia Protein [Mass/Vol] 6.7 g/dL Normal 6.4-8.2 [facility] Comment on above: Performed By: #### L IVER, LIPID, BMP #### [facility] [address] [address] [address] Angelo Garcia MICROALBUMIN, RAND URon 06-11 mALB <1.3 Normal <=30.0 [facility] Comment on above: Performed By: #### M ALBR #### [facility] [address] [address] [address] Angelo Garcia PROF CHEM 8 (BAS METB)on Anion gap [Moles/Vol] 12.3 mmol/L Normal Th [facility] Comment on above: Performed By: #### L IVER, LIPID, BMP #### [facility] [address] [address] [address] Angelo Garcia Calcium [Mass/Vol] 8.7 mg/dL Normal 8.5-10.1 [facility] Comment on above: Performed By: #### L IVER, LIPID, BMP #### [facility] [address] [address] [address] Angelo Garcia Chloride [Moles/Vol] 103 mmol/L Normal 98-107 [facility] Comment on above: Performed By: #### L IVER, LIPID, BMP #### [facility] [address] [place] [address] Dr. Angelo Garcia CO2 [Moles/Vol] 26.0 mmol/L Normal 21.0-32.0 [facility] Comment on above: Performed By: #### L IVER, LIPID, BMP #### [facility] [address] [address] [address] Angelo Garcia Creatinine [Mass/Vol] 1.53 mg/dL Critically high 0.70-1.30 [facility] Comment on above: Performed By: #### L IVER, LIPID, BMP #### [facility] [address] [place] [address] Dr. Angelo Garcia EGFR-AF BOTSWANAN 53 mL/min/1.73m2 Critically low >=60 [facility] Comment on above: Performed By: #### L IVER, LIPID, BMP #### [facility] [address] [place] [address] Dr. Angelo Garcia EGFR-NON AF BOTSWANAN 44 mL/min/1.73m2 Critically low >=60 [facility] Comment on above: Performed By: #### L IVER, LIPID, BMP #### [facility] [address] [address] [address] Angelo Garcia Glucose [Mass/Vol] 197 mg/dL Critically high 74-106 [facility] Comment on above: Performed By: #### L IVER, LIPID, BMP #### [facility] [address] [place] [address] Dr. Angelo Garcia Potassium [Moles/Vol] 4.3 mmol/L Normal 3.5-5.1 [facility] Comment on above: Performed By: #### L IVER, LIPID, BMP #### [facility] [address] [place] [address] Dr. Angelo Garcia Sodium [Moles/Vol] 137 mmol/L Normal 136-145 [facility] Comment on above: Performed By: #### L IVER, LIPID, BMP #### [facility] [address] [place] [address] Dr. Angelo Garcia Urea nitrogen [Mass/Vol] 31.0 mg/dL Critically high 7.0-18.0 [facility] Comment on above: Performed By: #### L IVER, LIPID, BMP #### [facility] [address] [place] [address] Dr. Angelo Garcia Urea nitrogen/Creatinine [Mass ratio] 20.3 mg/mg Normal [facility] Comment on above: Performed By: #### L IVER, LIPID, BMP #### [facility] [address] [place] [address] Dr. Angelo Garcia GLYCOHEMOGLOBIN A1Con 2021 ADA RECOMMENDATION SEE BELOW Normal [facility] Comment on above: Result Comment: ADA RECOMMENDED LIMIT 4.0 - 6.0 ADA THERAPEUTIC TARGET < 7.0 ACTION SUGGESTED > 7.0 Performed By: #### A 1C #### [facility] [address] [place] [address] Dr. Angelo Garcia Glucose [Mass/Vol] 160 mg/dL Normal [facility] Comment on above: Performed By: #### A 1C #### [facility] [address] [place] [address] Dr. Angelo Garcia HbA1c (Bld) [Mass fraction] 7.2 % Critically high 4.5-6.2 [facility] Comment on above: Performed By: #### A 1C #### [facility] [address] [place] [address] Dr. Angelo Garcia RAD - CT Reporton 01-21-2020 RAD - CT Report [id number]:[id number] Normal [facility] Ambulatory Clinical Summaryo n 01-20-2020 Ambulatory Clinical Summary {[id number] Normal [facility] Ambulatory Clinical Summary {[id number] Normal [facility] Ambulatory Clinical Summary {[id number] Normal [facility] Patient Educationon 01-20-20 Patient Education Family Medicine Intravenous Pyelography Intravenous pyelography (IVP) is an X-ray test. This test checks your kidneys, ureters, and bladder for problems. BEFORE THE PROCEDURE ? Do not eat or drink anything after midnight on the night before your test, or as told by your doctor. ? Ask your doctor if it is okay to take any medicines you need with a sip of water. ? Your doctor may ask you to take a medicine that helps you poop (laxative ) the night before your test. PROCEDURE This test takes about 1 hour. During the test: ? You will wear a hospital gown and lie on a table. ? A tube will be put in your vein (intravenous line, IV ). ? An X-ray dye will be put through the tube and into your vein. The dye helps your doctor see your kidneys, ureters, and bladder better on the X-rays. ? Your doctor may press on your belly (abdomen ) to get better X-ray pictures. ? You may be asked to pee (urinate ) before the last picture is taken. The test is done when all the needed pictures are taken. AFTER THE PROCEDURE ? You can drive home and go back to your normal activities right away. ? Ask when your test results will be ready. Make sure you get your test results. Document Released: 02/08/2009 Document Revised: 05/20/2012 Document Reviewed: 03/08/2012 [employer]? Patient Information ?2013 [employer]. Urinary Frequency The number of times a normal person urinates depends upon how much liquid they take in and how much liquid they are losing. If the temperature is hot and there is high humidity then the person will sweat more and usually breathe a little more frequently. These factors decrease the amount of frequency of urination that would be considered normal. The amount you drink is easily determined, but the amount of fluid lost is sometimes more difficult to calculate. Fluid is lost in two ways: ? Sensible fluid loss is usually measured by the amount of urine that you get rid of. Losses of fluid can also occur with diarrhea. ? Insensible fluid loss is more difficult to measure. It is caused by evaporation. Insensible loss of fluid occurs through breathing and sweating. It usually ranges from a little less than a quart to a little more than a quart of fluid a day. In normal temperatures and activity levels the average person may urinate 4 to 7 times in a 24-hour period. Needing to urinate more often than that could indicate a problem. If one urinates 4 to 7 times in 24 hours and has large volumes each time, that could indicate a different problem from one who urinates 4 to 7 times a day and has small volumes. The time of urinating is also an important. Most urinating should be done during the waking hours. Getting up at night to urinate frequently can indicate some problems. CAUSES The bladder is the organ in your lower abdomen that holds urine. Like a balloon, it swells some as it fills up. Your nerves sense this and tell you it is time to head for the bathroom. There are a number of reasons that you might feel the need to urinate more often than usual. They include: ? Urinary tract infection. This is usually associated with other signs such as burning when you urinate. ? In men, problems with the prostate (a walnut-size gland that is located near the tube that carries urine out of your body). There are two reasons why the prostate can cause an increased frequency of urination: ? An enlarged prostate that does not let the bladder empty well. If the bladder only half empties when you urinate then it only has half the capacity to fill before you have to urinate again. ? The nerves in the bladder become more hypersensitive with an increased size of the prostate even if the bladder empties completely. ? . ? Obesity. Excess weight is more likely to cause a problem for women more than for men. ? Bladder stones or other bladder problems. ? Caffeine. ? Alcohol. ? Medications. For example, drugs that help the body get rid of extra fluid (diuretics ) increase urine production. Some other medicines must be taken with lots of fluids. ? Muscle or nerve weakness. This might be the result of a spinal cord injury, a stroke, multiple sclerosis or Parkinson's disease. ? Long-standing diabetes can decrease the sensation of the bladder. This loss of sensation makes it harder to sense the bladder needs to be emptied. Over a period of years the bladder is stretched out by constant overfilling. This weakens the bladder muscles so that the bladder does not empty well and has less capacity to fill with new urine. ? Interstitial cystitis (also called painful bladder syndrome). This condition develops because the tissues that line the insider of the bladder are inflamed (inflammation is the body's way of reacting to injury or infection). It causes pain and frequent urination. It occurs in women more often than in men. DIAGNOSIS ? To decide what might be causing your urinary frequency, your healthcare provider will probably: ? Ask about symptoms you have noticed. ? Ask about your overall health. This will include questions about any medications you are taking. ? Do a physical examination. ? Order some tests. These might include: ? A blood test to check for diabetes or other health issues that could be contributing to the problem. ? Urine testing. This could measure the flow of urine and the pressure on the bladder. ? A test of your neurological system (the brain, spinal cord and nerves). This is the system that senses the need to urinate. ? A bladder test to check whether it is emptying completely when you urinate. ? Cytoscopy. This test uses a thin tube with a tiny camera on it. It offers a look inside your urethra and bladder to see if there are problems. ? Imaging tests. You might be given a contrast dye and then asked to urinate. X-rays are taken to see how your bladder is working. TREATMENT It is important for you to be evaluated to determine if the amount or frequency that you have is unusual or abnormal. If it is found to be abnormal the cause should be determined and this can usually be found out easily. Depending upon the cause treatment could include medication, stimulation of the nerves, or surgery. There are not too many things that you can do as an individual to change your urinary frequency. It is important that you balance the amount of fluid intake needed to compensate for your activity and the temperature. Medical problems will be diagnosed and taken care of by your physician. There is no particular bladder training such as Kegel's exercises that you can do to help urinary frequency. This is an exercise this is usually done for people who have leaking of urine when they laugh cough or sneeze. HOME CARE INSTRUCTIONS ? Take any medications your healthcare provider prescribed or suggested. Follow the directions carefully. ? Practice any lifestyle changes that are recommended. These might include: ? Drinking less fluid or drinking at different times of the day. If you need to urinate often during the night, for example, you may need to stop drinking fluids early in the evening. ? Cutting down on caffeine or alcohol. They both can make you need to urinate more often than normal. Caffeine is found in coffee, tea and sodas. ? Losing weight, if that is recommended. ? Keep a journal or a log. You might be asked to record how much you drink and when and when you feel the need to urinate. This will also help evaluate how well the treatment provided by your physician is working. SEEK MEDICAL CARE IF: ? Your need to urinate often gets worse. ? You feel increased pain or irritation when you urinate. ? You notice blood in your urine. ? You have questions about any medications that your healthcare provider recommended. ? You notice blood, pus or swelling at the site of any test or treatment procedure. ? You develop a fever of more than 100.5? F (38.1? C). SEEK IMMEDIATE MEDICAL CARE IF: You develop a fever of more than 102.0? F (38.9? C). Document Released: 12/23/2009 Document Revised: 05/20/2012 Document Reviewed: 12/23/2009 [facility]? Patient Information ?2013 [employer]. Kidney Stones Kidney stones (ureteral lithiasis ) are solid masses that form inside your kidneys. The intense pain is caused by the stone moving through the kidney, ureter, bladder, and urethra (urinary tract ). When the stone moves, the ureter starts to spasm around the stone. The stone is usually passed in the urine. HOME CARE ? Drink enough fluids to keep your pee (urine ) clear or pale yellow. This helps to get the stone out. ? Strain all pee through the provided strainer. Do not pee without peeing through the strainer, not even once. If you pee the stone out, catch it. The stone may be as small as a grain of salt. Take this to your doctor. ? Only take medicine as told by your doctor. ? Follow up with your doctor as told. ? Get follow-up X-rays as told by your doctor. GET HELP RIGHT AWAY IF: ? Your pain does not get better with medicine. ? You have a fever. ? Your pain increases and gets worse over 18 hours. ? You have new belly (abdominal ) pain. ? You feel faint or pass out. MAKE SURE YOU: ? Understand these instructions. ? Will watch your condition. ? Will get help right away if you are not doing well or get worse. Document Released: 08/14/2008 Document Revised: 05/20/2012 Document Reviewed: 12/24/2009 [employer]? Patient Information ?2013 [employer]. Normal [facility] Urology Office/Clinic Noteon 01-20-2020 Urology Office/Clinic Note Chief Complaint New Pt HPI Staff New Pt. [facility] did a phone consult over the phone on 01/12/2020 from [facility]. KUB done 01/15/2020, CT SCAN done 01/12/2020, ER report from [facility] 01/12/2020. Dysuria: denies pain or burning Incomplete bladder emptying: denies Hematuria: denies visible blood, UA shows TRACE INTACT Frequency: yes mild intermittent 5-6 times day Urgency: denies Nocturia: yes mild intermittent once a night Stream: denies hesitancy, denies weak stream, denies start/stop stream Leaking: denies Post void dripping: denies Wearing pads/ Depends: denies Urge incontinence: denies Stress incontinence: denies Incontinence without Sensory Awareness: denies Abdominal pain: denies Flank pain: denies Sexual complaints: denies History of Present Illness Pt is here for possible UVJ stone. Reviewed UA, CT Scan and KUB Pt has no associated symptoms, no fever, no chills, no flank pain. Patient has no prior history of kidney stones. The pain became quite severe very quickly and presented to the emergency room. He was actually admitted to the hospital and urologic consultation was obtained. I had spoken with the patient by telephone and he desired to be discharged before I actually saw him. Since his discharge she did have some mild right-sided flank and abdominal pain according to him and his but this pain dissipated and has not recurred. He may have passed some small dots of calculus type material but he is unsure. He said no urinary tract infections or fever or chills or other associated symptoms. Review of Systems PHQ Score Initial Depression Screen Score: 0 ROS - Provider Constitutional: denies weight loss, denies hot flashes. Eyes: denies eye problems. Gastrointestinal: denies nausea, denies vomiting. Cardiovascular: denies chest pain or angina. Integumentary: no dryness Musculoskeletal: denies musculoskeletal symptoms. ENMT: denies otolaryngeal symptoms. Respiratory: no shortness of breath. Heme/Lymph: denies easy bleeding tendency, denies easy bruising tendency. Psychiatric: no confusion, no anxiety. Genitourinary: denies dysuria, denies hematuria, denies discharge, mild urinary frequency, denies urinary hesitancy, denies nocturia, denies incontinence, denies genital sores, denies decreased libido, and denies erectile dysfunction. Physical Exam Vitals & Measurements HR: 68(Peripheral) RR: 16 BP: 151/95 HT: 167.0 cm HT: 167 cm WT: 68.1 kg WT: 68.1 kg BMI: 24.42 General Appearance: alert, no distress, well nourished, well developed male. Head: normocephalic . Eyes: normal orbit and globe. ENMT: normal examination of external ears. Chest: Lungs CTA, respirations non labored. Cardiovascular: regular rate and rhythm. Abdomen: soft, non distended, no tenderness, no mass or organomegaly, no hernia. Genitourinary: normal scrotum, normal testes, normal urethra, normal epididymis, normal vas deferens/spermatic cord. Flank Pain: none. Bladder: nonpalpable. Penis: normal shaft, normal glans. Lymph Nodes: unremarkable palpation of the cervical area. Skin: warm, dry, no bruising. Psychiatric: cooperative, affect appropriate for age, normal judgement, euthymic mood. Assessment/Plan Will schedule IVP in 1 week 1. Kidney stones (N20.0: Calculus of kidney) Pt's CT Scan showed a 6mm Rt, UVJ stone After viewing CT Scan and KUB, odds are that the pt has passed the stone. Will schedule IVP in 1 week to determine if stone is still present. 2. Frequent urination (R35.0: Frequency of micturition) Mild-Moderate, 5-7x a day CT scan and report reviewed KUB is reviewed report is reviewed. Laboratory data viewed. Emergency room visit documentation is reviewed Looking at the patient's pH however it is certainly possible he could have a uric acid stone which is not seen on abdominal x-ray but is well seen on CT scan. I gave him the option of looser follow-up with a follow-up in 6 months with some upper tract imaging versus proceeding to be sure he has passed the calculus in question. He prefers the latter after full discussion and we will obtain an IVP in about 7 to 10 days and he will call for those results. He agrees with this plan. Regarding PSA level checks his primary care physician has been doing so. Follow-up With When Contact Information QUINTIN MUNOZ, Chris P Additional Instructions: Patient Education Intravenous Pyelography, Akep-ik-Thcl Urinary Frequency Kidney Stones, Jqaf-kp-Rhep IGiulia, personally scribed for Dr. Hurley on 01/20/2020 15:17:46. . Documentation recorded by the scribe, Giulia Teague, accurately reflects the services(s) I performed and decisions made by me. Authenticated by Dr. Hurley on 01/20/2020 15:18:19. Problem List/Past Medical History Ongoing Chronic obstructive pulmonary disease Diabetes Emphysema lung Frequent urination Heart attack Heart disease High cholesterol Hypertension Kidney stones Historical No qualifying data Procedure/Surgical History Cataract extraction and insertion of intraocular lens (12/13/2015). Medications alprazolam 0.5 mg Tab, 0.5 mg= 1 tab(s), Oral, TID, PRN Avapro, 150 mg, Oral, Daily Coreg, 25 mg, Oral, BID Crestor, 20 mg, Oral, Daily, Not taking Flexeril, 10 mg, Oral, TID, PRN glipiZIDE, 20 mg, Oral, Daily Imdur, 30 mg, Oral, Daily metformin, 500 mg, Oral, Daily [place] 325 mg-5 mg oral tablet, 1 tab(s), Oral, q6hr Norvasc, 10 mg, Oral, Daily pioglitazone 30 mg Tab, 30 mg= 1 tab(s), Oral, Daily ProAir HFA, Inhalation, PRN spironolactone, 25 mg, Oral, Every other day Wellbutrin, 150 mg, Oral, Daily, Not taking Allergies No Known Allergies Social History Tobacco 5-9 cigarettes (between 1/4 to 1/2 pack)/day in last 30 days Tobacco Use:. Cigarettes, Yes, 01/20/2020 Family History Hyperlipidemia: Mother. Hypertension: Mother. Immunizations Vaccine Date Status influenza virus vaccine, inactivated 12/29/2019 Recorded Lab Results Ambulatory Point of Care Results Bilirubin Urine Dipstick: 2+ Moderate (01/20/20 14:33:00) Blood Urine Dipstick: Trace-intact (01/20/20 14:33:00) Glucose Urine Dipstick: Negative (01/20/20 14:33:00) Ketones Urine Dipstick: Trace - 5 mg/dl (01/20/20 14:33:00) Leukocytes Urine Dipstick: Negative (01/20/20 14:33:00) Nitrite Urine Dipstick: Negative (01/20/20 14:33:00) Protein Urine Dipstick: 1+ (30 mg/dl) (01/20/20 14:33:00) Specific [place] Urine Dipstick: >=1.030 (01/20/20 14:33:00) Urine Color Urine Dipstick: Yellow (01/20/20 14:33:00) Urobilinogen Urine Dipstick: Normal 0.2-1 EU/dl (01/20/20 14:33:00) pH Urine Dipstick: 5 (01/20/20 14:33:00) Normal [facility] Comment on above: Result Comment: Elec tronically Signed By: QUINTIN MUNOZ, Chris P\.br\Date and Time Signed: 01/20/20 15:20 EST\.br\Electronically Co-Signed By: Giulia Rowlandbr\Date and Time Co-Signed: 01/20/20 15:18 EST RAD - MISCon 01-16-2020 RAD - MISC [id number]. [id number]:127 Normal [facility] Vital Signs Date Time Vital Sign Value Performing Clinician Faci lity 01-29-2024 13:32-0500 Body height 167.6 cm Siva Thomson MD Work Phone: [facility] 01-29-2024 13:32-0500 Body mass index (BMI) [Ratio] 20.98 kg/m2 Siva Thomson MD Work Phone: [facility] 01-29-2024 13:32-0500 Body temperature 97.81 [degF] Siva Thomson MD Work Phone: [facility] 01-29-2024 13:32-0500 Body weight 58.97 kg Siva Thomson MD Work Phone: [facility] 01-29-2024 13:32-0500 Diastolic blood pressure 56 mm[Hg] Siva Thomson MD Work Phone: [facility] 01-29-2024 13:32-0500 Heart rate 57 /min Siva Thomson MD Work Phone: [facility] 01-29-2024 13:32-0500 Respiratory rate 20 /min Siva Thomson MD Work Phone: [facility] 01-29-2024 13:32-0500 SaO2% (BldA) [Mass fraction] 99 % Siva Thomson MD Work Phone: [facility] 01-29-2024 13:32-0500 Systolic blood pressure 116 mm[Hg] Siva Thomson MD Work Phone: [facility] 12-20-2023 10:49-0400 Body height 167.6 cm Siva Thomson MD Work Phone: [facility] 12-20-2023 10:49-0400 Body mass index (BMI) [Ratio] 21.63 kg/m2 Siva Thomson MD Work Phone: [facility] 12-20-2023 10:49-0400 Body temperature 97.3 [degF] Siva Thomson MD Work Phone: [facility] 12-20-2023 10:49-0400 Body weight 60.78 kg Siva Thomson MD Work Phone: [facility] 12-20-2023 10:49-0400 Diastolic blood pressure 52 mm[Hg] Siva Thomson MD Work Phone: [facility] 12-20-2023 10:49-0400 Heart rate 63 /min Siva Thomson MD Work Phone: [facility] 12-20-2023 10:49-0400 Respiratory rate 20 /min Siva Thomson MD Work Phone: [facility] 12-20-2023 10:49-0400 SaO2% (BldA) [Mass fraction] 99 % Siva Thomson MD Work Phone: [facility] 12-20-2023 10:49-0400 Systolic blood pressure 108 mm[Hg] Siva Thomson MD Work Phone: [facility] Healthcare Encounters Encounter Date Encounter Type Care Provider Facility Start: 01-29-2024 End: 01-29-2024 Bamboo flowsheet Siva Thomson MD Work Phone: [facility] Start: 01-29-2024 End: 01-29-2024 Bamboo flowsheet Siva Thomson MD Work Phone: [facility] Start: 01-29-2024 End: 01-29-2024 Office outpatient visit 25 minutes Siva Thomson MD Work Phone: [facility] Comment on above: Cracked skin (Primar y Dx); Ischemic finger ulcer, limited to breakdown of skin (HCC) (CMS/HCC); 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); Chronic obstructive pulmonary disease, unspecified COPD type (CMS/HCC); Type 2 diabetes mellitus with hyperglycemia, without long-term current use of insulin ([facility]) Start: 01-29-2024 End: 01-29-2024 ambulatory SIVA THOMSON Not Available Start: 01-28-2024 End: 01-28-2024 Refill Siva Thomson MD Work Phone: [facility] Comment on above: DDD (degenerative di sc disease), lumbar Start: 01-03-2024 End: 01-03-2024 Refill Ebony Kianna [facility] Comment on above: 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 ([facility]) (Primary Dx) Start: 12-25-2023 End: 12-25-2023 Refill Siva Thomson MD Work Phone: [facility] Comment on above: DDD (degenerative di sc disease), lumbar Start: 12-20-2023 End: 12-20-2023 Bamboo flowsheet Siva Thomson MD Work Phone: [facility] Start: 12-20-2023 End: 12-20-2023 Bamboo flowsheet Siva Thomson MD Work Phone: [facility] Start: 12-20-2023 End: 12-20-2023 Office outpatient visit 15 minutes Siva Thomson MD Work Phone: [facility] Comment on above: Acute non-recurrent pansinusitis (Primary Dx); Vertigo Start: 12-20-2023 End: 12-20-2023 ambulatory SIVA THOMSON Not Available Start: 11-26-2023 End: 11-26-2023 Refill Siva Thomson MD Work Phone: [facility] Comment on above: DDD (degenerative di sc disease), lumbar Start: 10-17-2023 End: 10-17-2023 ambulatory SIVA THOMSON Not Available Start: 07-24-2023 End: 07-24-2023 ambulatory SIVA THOMSON Not Available Start: 06-13-2023 End: 06-13-2023 ambulatory SIVA THOMSON Not Available Start: 05-23-2023 End: 05-23-2023 ambulatory SIVA THOMSON Not Available Start: 04-23-2023 Refill Siva Hess Work Phone: [facility] Comment on above: DDD (degenerative di sc disease), lumbar Start: 06-29-2022 End: 06-30-[address] SIVA THOMSON Facility:[facility] Start: 11-15-2021 End: 11-16-[address] SIVA THOMSON Facility:[facility] Start: 08-24-2016 End: 08-25-2016 Ambulatory DEFAULT PHYSICIAN Facility:[facility] Procedures Date Procedure Procedure Detail Performing Clinician Start: 06-29-[address] SIVA LUNDY Comment on above: Performed By: #### [facility] #### [facility] [address] [place] [address] Dr. Angelo Garcia Plan of Treatment Date Care Activity Detail Author Start: 09-25-2024 Urine screening for protein Diabetes: Urine Protein Screening [facility] Start: 04-23-2024 End: 04-23-2024 Patient encounter procedure 04/23/2024 1:30 PM EST Office Visit [facility] [address] [place] [phone] Siva Thomson MD [address] [place] [phone] [facility] Start: 04-22-2024 End: 04-22-2024 Patient encounter procedure 04/22/2024 1:00 PM EST Office Visit [facility] [address] [place] [phone] Siva Thomson MD [address] [place] [address] [facility] Start: 03-28-2024 Hemoglobin A1c measurement Diabetes: Hemoglobin A1C [facility] Start: 01-29-2024 End: 01-28-2025 US.doppler Upper extremity artery - bilateral Vascular US upper extremity arterial duplex bilateral with Doppler Imaging Routine Ischemic finger ulcer, limited to breakdown of skin (HCC) ([facility]/HCC) 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) Type 2 diabetes mellitus with hyperglycemia, without long-term current use of insulin ([facility]) Expected: 01/29/2024, Expires: 01/28/2025 [facility] Work Phone: Comment on above: Expected: 01/29/2024 , Expires: 01/28/2025 Start: 01-29-2024 End: 01-29-2024 Patient encounter procedure [facility] Comment on above: Arrived Start: 12-27-2023 Hemoglobin A1c measurement Diabetes: Hemoglobin A1C [facility] Start: 12-20-2023 End: 12-20-2023 Patient encounter procedure 12/20/2023 11:00 AM EDT Office Visit [facility] [address] [place] [phone] Siva Thomson MD [address] [place] [phone] Arrived [facility] Comment on above: Arrived Start: 11-11-2023 Influenza vaccination Influenza Vacc ine (#1) [facility] Start: 05-23-2023 End: 05-23-2023 Patient encounter procedure 05/23/2023 1:15 PM EDT Office Visit [facility] [address] [place] [address] Siva Thomson MD [address] [place] [phone] [facility] Start: 04-08-2018 Pneumococcal Vaccine : 65+ Years (2 - PPSV23 or PCV20) Pneumococcal Vaccine: 65+ Years (2 - PPSV23 or PCV20) [facility] Start: 04-08-2018 Pneumococcal Vaccine : 65+ Years (2 of 2 - PPSV23 or PCV20) Pneumococcal Vaccine: 65+ Years (2 of 2 - PPSV23 or PCV20) [facility] Start: 1961 Urine screening for protein Diabetes: Urine Protein Screening [facility] Start: 02-27-1952 Glaucoma screening Diabetes: R etinopathy Screening [facility] Start: 1940 Hemoglobin A1c measurement Diabetes: Hemoglobin A1C [facility] Start: 1940 Medicare Annual Wellness (AWV) Medicare Annual Wellness (AWV) [facility] Immunizations Immunization Date Immunization Notes Care Provider Fa martin 12-04-2022 influenza virus vacc ine, unspecified formulation Siva Thomson MD Work Phone: [facility] Payers Date Payer Category Payer Medicare [facility]AGE [facility]VANTAGE [id number] 2021-Present [address] [place] [address] [id number] 2021 Medicare (Managed Care) [facility] ADV[employer]AGE Member Subscriber Plan / Payer (Effective 2021-Present) Name: Doc Ash A Relation to Subscriber: Self Name: DocAsh winn Payer ID: Not on file Group ID: [id number] Type: Not on file Address: [address] [place] [id number] 1959 Unknown [id number] 1942 Unknown [id number] 1942 Unknown [id number] 1942 Unknown [id number] 1942 Unknown [id number] 1942 Unknown [id number] 1942 Unknown [id number] 1942 Unknown [id number] 1942 Unknown [id number] Unknown Social History Date Type Detail Facility Start: 04-19-2023 End: 05-23-2023 Tobacco smoking status WYIS Occasional tobacco smoker [facility] History of tobacco use Cigarette Smoker N [facility] Start: 04-19-2023 End: 10-17-2023 Cigarettes smoked current (pack per day) - Reported 1 [facility] Start: 04-19-2023 End: 10-17-2023 Tobacco use panel [facility] Start: 1940 Sex Assigned At Not on file N [facility] Start: 05-23-2023 Tobacco use and exposure Smoke less tobacco non-user [facility] Medical Equipment Procedure Code Equipment Code Equipment Origin al Text Equipment Identifier Dates USE DIRECTED to test THREE TIMES DAILY [id number] Start: 05-24-2023 History of Present illness Narrative 01-29-2024 Siva Thomson MD - 01/29/2024 1:51 PM Dav Thomson MD - 01/29/2024 1:51 PM Dav Thomson MD - 01/29/2024 1:30 PM EST Note Date & Type Note Facility 01-29-2024 History of Presen t illness Narrative Associated Problem(s): Ischemic finger ulcer, limited to breakdown of skin (HCC) (CMS/HCC) Check US. Associated Problem(s): Cracked skin Unclear etiology but lesions and start steroid cream. Possibly related to PVD and check arterial US. Images from the original note were not included. Subjective Patient ID: Ash Roach is a 83 y.o. male who presents for Follow-up (Skin cracking open). C/o pain in hands. Skin cracking and peeling in both hands. Symptoms occur on fingertips and near edge of nails. Skin painful when cracked open. Symptoms occur for several weeks and getting worse. Tried OTC cream and seems to help. No problems on feet or toes. Never had before. No rash on backup engineer or palms of hand. No numbness or tingling in hand. Review of Systems Constitutional: Negative for fatigue. Respiratory: Negative for cough, shortness of breath and wheezing. Cardiovascular: Negative for chest pain and palpitations. Gastrointestinal: Negative for abdominal pain, diarrhea, nausea and vomiting. Genitourinary: Negative for dysuria. Objective Physical Exam Constitutional: General: He is not in acute distress. Appearance: Normal appearance. HENT: Head: Normocephalic. Right Ear: Tympanic membrane and ear canal normal. Left Ear: Tympanic membrane and ear canal normal. Eyes: Extraocular Movements: Extraocular movements intact. Pupils: Pupils are equal, round, and reactive to light. Cardiovascular: Rate and Rhythm: Normal rate and regular rhythm. Heart sounds: No murmur heard. No friction rub. No gallop. Pulmonary: Breath sounds: Normal breath sounds. No wheezing, rhonchi or rales. Abdominal: General: Bowel sounds are normal. There is no distension. Palpations: Abdomen is soft. Tenderness: There is no abdominal tenderness. There is no guarding or rebound. Musculoskeletal: Left lower leg: No edema. Skin: Comments: Cracked lesions on edge of several fingernails on pads of hands Neurological: Mental Status: He is alert. 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 ([facility]) Relevant Orders Vascular US upper extremity arterial duplex bilateral with Doppler COPD (chronic obstructive pulmonary disease) ([facility]) Type 2 diabetes mellitus with hyperglycemia, without long-term current use of insulin ([facility]) Relevant Orders Vascular US upper extremity arterial duplex bilateral with Doppler Cracked skin - Primary Unclear etiology but lesions and start steroid cream. Possibly related to PVD and check arterial US. Relevant Medications triamcinolone (Kenalog) 0.5 % cream Ischemic finger ulcer, limited to breakdown of skin ([facility]) ([facility]/HCC) Check US. Relevant Orders Vascular US upper extremity arterial duplex bilateral with Doppler documented in this encounter [facility] History of Present illness Narrative 12-20-2023 Siva Thomson MD - 12/20/2023 11:23 AM EDTMnicky Thomson MD - 12/20/2023 11:00 AM EDT Note Date & Type Note Facility 12-20-2023 History of Presen t illness Narrative Associated Problem(s): Acute non-recurrent pansinusitis Take antibiotics BID for 10 days. Use prednisone for inflammation. Use sudafed or other decongestants as needed. Use Robitussin or Robitussin-DM for cough. Can use afrin for congestion but no longer than 3 days. Can use Mucinex to bring up phlegm. Use Motrin or Tylenol as needed for fever, aches, or pains. Increase fluid intake and rest. Should improve over next 5-7 days and if no better or worse call for re-evaluation. Images from the original note were not included. Subjective Patient ID: Ash Roach is a 83 y.o. male who presents for Sinusitis. C/o cough, congestion, and rhinorrhea x 2 weeks. Afebrile. Severe fatigue and no energy. Mild cough dry and nonproductive. Denies chest tightness or SOB. TREADWELL and sinus pressure in forehead and cheeks along with postnasal drip. Ears plugged and popping. Sore throat and pain to swallow. Mild nausea. Denies recent sick contacts. Using OTC medication and mild relief. No improvement in symptoms since onset. Called 12/16 and prescribed cefdinir but not picked up yet. Review of Systems Constitutional: Negative for fatigue. Respiratory: Negative for cough, shortness of breath and wheezing. Cardiovascular: Negative for chest pain and palpitations. Gastrointestinal: Negative for abdominal pain, diarrhea, nausea and vomiting. Genitourinary: Negative for dysuria. Objective Physical Exam Constitutional: General: He is not in acute distress. Appearance: Normal appearance. HENT: Head: Normocephalic. Ears: Comments: Bilateral TM clear but bulging with fluid. Eyes: Extraocular Movements: Extraocular movements intact. Pupils: Pupils are equal, round, and reactive to light. Cardiovascular: Rate and Rhythm: Normal rate and regular rhythm. Heart sounds: No murmur heard. No friction rub. No gallop. Pulmonary: Breath sounds: Normal breath sounds. No wheezing, rhonchi or rales. Abdominal: General: Bowel sounds are normal. There is no distension. Palpations: Abdomen is soft. Tenderness: There is no abdominal tenderness. There is no guarding or rebound. Musculoskeletal: Left lower leg: No edema. Neurological: Mental Status: He is alert. Assessment/Plan Problem List Items Addressed This Visit Acute non-recurrent pansinusitis - Primary Relevant Medications predniSONE (Deltasone) 50 MG tablet Other Visit Diagnoses Vertigo Relevant Medications meclizine (Antivert) 25 MG tablet documented in this encounter [facility] Evaluation note Note Date & Type Note Facility Evaluation note Diagnosis DDD (degenerative disc disease), lumbar Degeneration of lumbar or lumbosacral intervertebral disc documented in this encounter [facility] Evaluation note Note Date & Type Note Facility Evaluation note Diagnosis Acute non-recurrent pansinusitis- Primary Vertigo Dizziness and giddiness documented in this encounter [facility] Evaluation note Note Date & Type Note Facility Evaluation note Diagnosis Type 2 diabetes mellitus with hyperglycemia, without long-term current use of insulin ([facility])- Primary Essential hypertension, benign ([facility]) Essential hypertension, benign DDD (degenerative disc disease), lumbar Degeneration of lumbar or lumbosacral intervertebral disc Chronic obstructive pulmonary disease, unspecified COPD type ([facility]) Tobacco user Tobacco use disorder Generalized anxiety disorder ([facility]) Generalized anxiety disorder Hyperkalemia- Primary Hyperpotassemia COPD with acute exacerbation ([facility]) Primary insomnia Persistent disorder of initiating or maintaining sleep Acute kidney injury ([facility]) Encounter for long-term (current) use of medications Encounter for long-term (current) use of other medications Type 2 diabetes mellitus with hyperglycemia, without long-term current use of insulin ([facility])- Primary Essential hypertension, benign ([facility]) Essential hypertension, benign COPD with acute exacerbation ([facility] Generalized anxiety disorder ([facility]) Generalized anxiety disorder DDD (degenerative disc disease), lumbar Degeneration of lumbar or lumbosacral intervertebral disc Encounter for long-term (current) use of medications Encounter for long-term (current) use of other medications Dyslipidemia ([facility]) Other and unspecified hyperlipidemia Screening PSA (prostate specific antigen) Special screening for malignant neoplasm of prostate Bilateral leg edema Edema Type 2 diabetes mellitus with other specified complication, without long-term current use of insulin ([facility]) Type 2 diabetes mellitus with hyperglycemia, without long-term current use of insulin ([facility])- Primary Essential hypertension, benign ([facility]) Essential hypertension, benign Chronic obstructive pulmonary disease, unspecified COPD type ([facility]) Bilateral leg edema Edema Generalized anxiety disorder ([facility]) Generalized anxiety disorder DDD (degenerative disc disease), lumbar Degeneration of lumbar or lumbosacral intervertebral disc Type 2 diabetes mellitus with diabetic chronic kidney disease ([facility]) Chronic kidney disease, stage 3a ([facility]) ([facility]) Acute non-recurrent pansinusitis- Primary Vertigo Dizziness and giddiness DDD (degenerative disc disease), lumbar Degeneration of lumbar or lumbosacral intervertebral disc documented in this encounter [facility] Evaluation note Note Date & Type Note Facility Evaluation note Diagnosis Type 2 diabetes mellitus with hyperglycemia, without long-term current use of insulin ([facility])- Primary Essential hypertension, benign ([facility]) Essential hypertension, benign DDD (degenerative disc disease), lumbar Degeneration of lumbar or lumbosacral intervertebral disc Chronic obstructive pulmonary disease, unspecified COPD type ([facility]) Tobacco user Tobacco use disorder Generalized anxiety disorder ([facility]) Generalized anxiety disorder Hyperkalemia- Primary Hyperpotassemia COPD with acute exacerbation ([facility]) Primary insomnia Persistent disorder of initiating or maintaining sleep Acute kidney injury ([facility]) Encounter for long-term (current) use of medications Encounter for long-term (current) use of other medications Type 2 diabetes mellitus with hyperglycemia, without long-term current use of insulin ([facility])- Primary Essential hypertension, benign ([facility]) Essential hypertension, benign COPD with acute exacerbation ([facility] Generalized anxiety disorder ([facility]) Generalized anxiety disorder DDD (degenerative disc disease), lumbar Degeneration of lumbar or lumbosacral intervertebral disc Encounter for long-term (current) use of medications Encounter for long-term (current) use of other medications Dyslipidemia (CMS/HCC) Other and unspecified hyperlipidemia Screening PSA (prostate specific antigen) Special screening for malignant neoplasm of prostate Bilateral leg edema Edema Type 2 diabetes mellitus with other specified complication, without long-term current use of insulin ([facility]) Type 2 diabetes mellitus with hyperglycemia, without long-term current use of insulin ([facility])- Primary Essential hypertension, benign ([facility]/HCC) Essential hypertension, benign Chronic obstructive pulmonary disease, unspecified COPD type ([facility]/HCC) Bilateral leg edema Edema Generalized anxiety disorder ([facility]) Generalized anxiety disorder DDD (degenerative disc disease), lumbar Degeneration of lumbar or lumbosacral intervertebral disc Type 2 diabetes mellitus with diabetic chronic kidney disease ([facility]) Chronic kidney disease, stage 3a (HCC) ([facility]) Acute non-recurrent pansinusitis- Primary Vertigo Dizziness and giddiness 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 ([facility])- Primary documented in this encounter [facility] Evaluation note Note Date & Type Note Facility Evaluation note Diagnosis Type 2 diabetes mellitus with hyperglycemia, without long-term current use of insulin ([facility])- Primary Essential hypertension, benign ([facility]) Essential hypertension, benign DDD (degenerative disc disease), lumbar Degeneration of lumbar or lumbosacral intervertebral disc Chronic obstructive pulmonary disease, unspecified COPD type ([facility]) Tobacco user Tobacco use disorder Generalized anxiety disorder ([facility]) Generalized anxiety disorder Hyperkalemia- Primary Hyperpotassemia COPD with acute exacerbation ([facility]) Primary insomnia Persistent disorder of initiating or maintaining sleep Acute kidney injury ([facility]) Encounter for long-term (current) use of medications Encounter for long-term (current) use of other medications Type 2 diabetes mellitus with hyperglycemia, without long-term current use of insulin ([facility])- Primary Essential hypertension, benign ([facility]) Essential hypertension, benign COPD with acute exacerbation ([facility] Generalized anxiety disorder ([facility]) Generalized anxiety disorder DDD (degenerative disc disease), lumbar Degeneration of lumbar or lumbosacral intervertebral disc Encounter for long-term (current) use of medications Encounter for long-term (current) use of other medications Dyslipidemia ([facility]/HCC) Other and unspecified hyperlipidemia Screening PSA (prostate specific antigen) Special screening for malignant neoplasm of prostate Bilateral leg edema Edema Type 2 diabetes mellitus with other specified complication, without long-term current use of insulin ([facility]) Type 2 diabetes mellitus with hyperglycemia, without long-term current use of insulin ([facility])- Primary Essential hypertension, benign ([facility]) Essential hypertension, benign Chronic obstructive pulmonary disease, unspecified COPD type ([facility]) Bilateral leg edema Edema Generalized anxiety disorder ([facility] Generalized anxiety disorder DDD (degenerative disc disease), lumbar Degeneration of lumbar or lumbosacral intervertebral disc Type 2 diabetes mellitus with diabetic chronic kidney disease ([facility]) Chronic kidney disease, stage 3a (HCC) ([facility]) Acute non-recurrent pansinusitis- Primary Vertigo Dizziness and giddiness DDD (degenerative disc disease), lumbar Degeneration of lumbar or lumbosacral intervertebral disc documented in this encounter [facility] Healthcare Evaluation note Note Date & Type Note Facility Evaluation note Diagnosis Type 2 diabetes mellitus with hyperglycemia, without long-term current use of insulin ([facility])- Primary Essential hypertension, benign ([facility]) Essential hypertension, benign DDD (degenerative disc disease), lumbar Degeneration of lumbar or lumbosacral intervertebral disc Chronic obstructive pulmonary disease, unspecified COPD type ([facility]) Tobacco user Tobacco use disorder Generalized anxiety disorder ([facility]) Generalized anxiety disorder Hyperkalemia- Primary Hyperpotassemia COPD with acute exacerbation ([facility]) Primary insomnia Persistent disorder of initiating or maintaining sleep Acute kidney injury ([facility]) Encounter for long-term (current) use of medications Encounter for long-term (current) use of other medications Type 2 diabetes mellitus with hyperglycemia, without long-term current use of insulin ([facility])- Primary Essential hypertension, benign ([facility]) Essential hypertension, benign COPD with acute exacerbation ([facility]) Generalized anxiety disorder ([facility]) Generalized anxiety disorder DDD (degenerative disc disease), lumbar Degeneration of lumbar or lumbosacral intervertebral disc Encounter for long-term (current) use of medications Encounter for long-term (current) use of other medications Dyslipidemia ([facility]) Other and unspecified hyperlipidemia Screening PSA (prostate specific antigen) Special screening for malignant neoplasm of prostate Bilateral leg edema Edema Type 2 diabetes mellitus with other specified complication, without long-term current use of insulin ([facility]) Type 2 diabetes mellitus with hyperglycemia, without long-term current use of insulin ([facility])- Primary Essential hypertension, benign ([facility]) Essential hypertension, benign Chronic obstructive pulmonary disease, unspecified COPD type ([facility]) Bilateral leg edema Edema Generalized anxiety disorder ([facility]) Generalized anxiety disorder DDD (degenerative disc disease), lumbar Degeneration of lumbar or lumbosacral intervertebral disc Type 2 diabetes mellitus with diabetic chronic kidney disease ([facility]/HCC) Chronic kidney disease, stage 3a (HCC) ([facility]) Cracked skin- Primary Ischemic finger ulcer, limited to breakdown of skin ([facility]) ([facility]) 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 ([facility]) Chronic obstructive pulmonary disease, unspecified COPD type ([facility]) Type 2 diabetes mellitus with hyperglycemia, without long-term current use of insulin ([facility]) documented in this encounter [facility] Evaluation note Note Date & Type Note Facility Evaluation note Diagnosis DDD (degenerative disc disease), lumbar Degeneration of lumbar or lumbosacral intervertebral disc documented in this encounter [facility] Summary Purpose Family History No Family History Records FoundNo Family History Records FoundNo Family History Records FoundNo Family History Records Found Advance Directives No Advanced Directives Records FoundNo Advanced Directives Records FoundNo Advanced Directives Records FoundNo Advanced Directives Records Found Additional Source Comments (unrecognized sect ion and content) No Status Records FoundNo Status Records FoundNo Status Records FoundNo Status Records Found INFORMATION SOURCE (unrecogn ized section and content) DATE CREATED AUTHOR 09/05/2017 [facility] DATE CREATED AUTHOR AUTHOR'S ORGANIZ ATION 01/21/2020 [facility] DATE CREATED AUTHOR AUTHOR'S ORGANIZ ATION 07/07/2022 [facility] DATE CREATED AUTHOR AUTHOR'S ORGANIZ ATION 02/01/2024 [facility] Reason for Visit (unrecogniz ed section and content) Reason Onset Date Comments Med Refill 04/23/2023 Reason Comments Sinusitis Reason Onset Date Comments Med Refill 12/25/2023 Reason Onset Date Comments Med Refill 01/28/2024 Reason Comments Follow-up Skin cracking open Reason Onset Date Comments Med Refill 11/26/2023 Care Teams (unrecognized sec tion and content) Inventory Representative Relationship Specialty Start Date End Date Siva Thomson MD [address] [place] [address] PCP - General Family Medicine 04/16/23 Inventory Representative Relationship Specialty Start Date End Date Siva Thomson MD [address] [place] [address] PCP - General Family Medicine 04/16/23 Inventory Representative Relationship Specialty Start Date End Date Siva Thomson MD [address] [place] [address] PCP - General Family Medicine 04/16/23 Inventory Representative Relationship Specialty Start Date End Date Siva Thomson MD [address] [place] [address] PCP - General Family Medicine 04/16/23 Inventory Representative Relationship Specialty Start Date End Date Siva Thomson MD [address] [place] [address] PCP - General Family Medicine 04/16/23 Inventory Representative Relationship Specialty Start Date End Date Siva Thomson MD [address] [place] [address] PCP - General Family Medicine 04/16/23 Gladys Martinez RN [address] [place] [address] Registered Nurse Family Medicine 01/09/24 Inventory Representative Relationship Specialty Start Date End Date Siva hTomson MD [address] [place] [address] PCP - General Family Medicine 04/16/23 Gladys Martinez RN [address] [place] [address] Registered Nurse Family Medicine 01/09/24 Inventory Representative Relationship Specialty Start Date End Date Siva Thomson MD [address] [place] [address] PCP - General Family Medicine 04/16/23 Gladys Martinez, RN [address] [place] [address] Registered Nurse Family Medicine 01/09/24 FOR RECORDS PERTAINING TO PATIENTS WHO ARE OR HAVE BEEN ENROLLED IN A CHEMICAL DEPENDENCY/SUBSTANCEABUSE PROGRAM, SOME INFORMATION MAY BE OMITTED. This clinical summary was aggregated from multiple sources. Caution should be exercised in using it in the provision of clinical care. This summary normalizes information from multiple sources, and as a consequence, information in this document may materially change the coding, format and clinical context of patient data. In addition, data may be omitted in some cases. CLINICAL DECISIONS SHOULD BE BASED ON THE PRIMARY CLINICAL RECORDS. [facility]. provides no warranty or guarantee of the accuracy or completeness of information in this document.
[2024-02-22 15:05] LABS: Basophils Percent Auto 0.2 % (0.2-2.0); Eosinophils Percent Auto 0.2 % (0.9-7.0); Hematocrit 35.9 % (42.0-54.0); Hemoglobin 12.3 g/dL (14.0-18.0); Immature Granulocytes Abs Auto 0.07 10^3/uL (0.00-0.03); Immature Granulocytes Pct Auto 0.5 % (0.0-0.5); Lymphocytes Percent Auto 7.7 % (20.5-60.0); Mean Corpuscular HGB Conc 34.3 g/dL (29.9-35.2); Mean Corpuscular Hemoglobin 30.6 pg (25.9-34.0); Mean Corpuscular Volume 89.3 fL (80.0-94.0); Mean Platelet Volume 10.1 fL (9.5-13.5); Monocytes Absolute Auto 1.5 10^3/uL (0.3-0.8); Monocytes Percent Auto 11.3 % (1.7-12.0); Neutrophils Absolute Auto 10.6 10^3/uL (1.4-6.5); Neutrophils Percent Auto 80.1 % (43.0-75.0); Platelet Count 155 10^3/uL (150-450); Red Blood Count 4.02 10^6/uL (4.70-6.10); Red Cell Distribution Width 12.8 % (11.0-15.0); White Blood Count 13.3 10^3/uL (4.0-11.0)
[2024-02-22 15:19] LABS: INR 1.17; Prothrombin Time 12.2 sec (9.0-11.6)
[2024-02-22 15:22] LABS: Alanine Aminotransferase 148 U/L (16-63); Albumin Globulin Ratio 0.6; Albumin Level 2.3 g/dL (3.4-5.0); Alkaline Phosphatase 75 U/L (46-116); Anion Gap 16.2; Aspartate Amino Transferase 213 U/L (15-37); BUN Creatinine Ratio 20.5; Bilirubin Total 1.4 mg/dL (0.2-1.0); Calcium 8.5 mg/dL (8.5-10.1); Carbon Dioxide 27.5 mmol/L (21.0-32.0); Chloride 96 mmol/L (98-107); Estimated GFR (African America 20 (>=60 mL/min/1.73m^2); Estimated GFR (Non-African Ame 17 (>=60 mL/min/1.73m^2); Globulin 3.7 g/dL; Glucose 159 mg/dL (74-106); Potassium 3.7 mmol/L (3.5-5.1); Sodium 136 mmol/L (136-145); Troponin I High Sensitivity 67.7 pg/mL (4.0-76.1)
[2024-02-22 15:26] LABS: Magnesium 1.7 mg/dL (1.8-2.4)
--- NOTE | 2024-02-22 15:40 | ED.SOB1 ---
HPI - SOB/Dyspnea General Chief Complaint: Shortness of Breath/Dyspnea Stated Complaint: OTHER Time Seen by Provider: 02/22/24 14:34 Source: patient Mode of arrival: ambulance History of Present Illness HPI Narrative: The patient presented to us with a shortness of breath for the last few days, he is presented by the EMS after he was provided with a breathing treatment in his way here, the patient mentioned that for the last 2 to 3 days at least since Sunday he has been having more phlegm and shortness of breath No nausea no vomiting but he had some decreased p.o. intake for the last few days The patient denies any leg swelling chest pain he also denies any abdominal pain He had a fall apparently more than a week ago when he had an injury to his right forearm Related Data Home Medications ?Medication ?Instructions ?Recorded ?Confirmed albuterol sulfate 90 mcg/actuation 2 inh inhalation Q4H PRN shortness 06/04/23 02/22/24 aerosol inhaler of breath or wheezing amlodipine 5 mg tablet 5 mg PO DAILY 06/04/23 02/22/24 blood sugar diagnostic (Accu-Chek 06/04/23 06/04/23 Guide test strips) carvedilol 25 mg tablet 25 mg PO Q12H 06/04/23 02/22/24 cyclobenzaprine 10 mg tablet 10 mg PO DAILY 06/04/23 02/22/24 ipratropium 0.5 mg-albuterol 3 mg 3 ml inhalation Q4H PRN shortness 06/04/23 02/22/24 (2.5 mg base)/3 mL nebulization of breath or wheezing soln metformin 500 mg tablet,extended 500 mg PO BID 06/04/23 02/22/24 release 24 hr oxycodone-acetaminophen 10 mg-325 1 tab PO Q6H PRN pain 06/04/23 06/04/23 mg tablet paroxetine HCl 20 mg tablet 20 mg PO QAM 06/04/23 02/22/24 rosuvastatin 20 mg tablet 20 mg PO QPM 06/04/23 02/22/24 furosemide 40 mg tablet 40 mg PO DAILY 12/31/23 02/22/24 meclizine 25 mg tablet 25 mg PO .4 times per day 12/31/23 12/31/23 spironolactone 25 mg tablet 25 mg PO DAILY 02/22/24 02/22/24 Previous Rx's ?Medication ?Instructions ?Recorded ycttbqurjfgdozw-zekesprzwcnxygt-SL 10 ml PO Q6H PRN cold symptoms 12/31/23 2 mg-30 mg-10 mg/5 mL oral syrup #200 mL (Bromfed DM) doxycycline hyclate 100 mg tablet 100 mg PO BID 10 days #20 tabs 12/31/23 prednisone 20 mg tablet 20 mg PO BID 5 days #10 tabs 12/31/23 Allergies Allergy/AdvReac Type Severity Reaction Status Date / Time No Known Drug Allergies Allergy Verified 06/04/23 06:04 Review of Systems ROS Status of ROS 10 or more systems reviewed and unremarkable except as noted in history and below [facility] Medical History COPD (chronic obstructive pulmonary disease) ?J44.9 - Chronic obstructive pulmonary disease, unspecified (ICD-10) Chronic back pain ?M54.9 - Dorsalgia, unspecified (ICD-10) ?G89.29 - Other chronic pain (ICD-10) Anxiety ?F41.9 - Anxiety disorder, unspecified (ICD-10) Hyperlipidemia ?E78.5 - Hyperlipidemia, unspecified (ICD-10) Non-insulin dependent diabetes mellitus Hypertension ?I10 - Essential (primary) hypertension (ICD-10) History of myocardial infarct at age less than 60 years ?I25.2 - Old myocardial infarction (ICD-10) Family History Aunt Family history of cancer Social History Within the past year, how often did you have a drink containing alcohol: never Score interpretation: A score less than 4 is consistent with normal alcohol consumption. 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 General: Well-appearing and in no apparent distress. Skin: The patient have a friction like ulcer to the right elbow almost 3 x 5 cm rectangular in shape and it is healing well Head: Normocephalic, atraumatic. Neck: Supple, non-tender. Eye: Pupils are equal, round and EOMI. No scleral icterus. Ears, Nose, Mouth, and Throat: TM are clear, no nasal mucosal hypertrophy. Oral mucosa is moist, no posterior oropharynx erythema, uvula is mid-line Cardiovascular: Regular Rate and Rhythm without murmur, gallop or rub. Respiratory: The patient have distant breathing sounds as well as expiratory lung wheezes in both lung arango with rhonchi heard in both sides as well Chest Wall: no tenderness Back: No midline thoracic or lumbar vertebral tenderness. No CVA tenderness Musculoskeletal: normal ROM, no calf or popliteal tenderness, no lower extremity edema/swelling GI: Abdomen is soft, non-distended. Normal bowel sounds. No masses appreciated. No tenderness to palpation. No rebound, guarding, or rigidity noted. Neurological: A&O x4. No cranial nerve dysfunction observed. Constitutional Vital Signs, click to edit/add: Last Vital Signs Temp 99.1 F 02/22/24 14:30 Pulse 93 H 02/22/24 15:32 Resp 18 02/22/24 15:32 BP 129/60 02/22/24 15:32 Pulse Ox 84 L 02/22/24 15:32 O2 Del Method Room Air 02/22/24 14:56 Course Vital Signs Vital signs: Vital Signs Temperature 99.1 F 02/22/24 14:30 Pulse Rate 107 H 02/22/24 14:30 Respiratory Rate 18 02/22/24 14:30 Blood Pressure 117/77 02/22/24 14:30 Pulse Oximetry 94 L 02/22/24 14:30 Oxygen Delivery Method Room Air 02/22/24 14:30 Temperature 99.1 F 02/22/24 14:30 Pulse Rate 93 H 02/22/24 15:32 Respiratory Rate 18 02/22/24 15:32 Blood Pressure 129/60 02/22/24 15:32 Pulse Oximetry 84 L 02/22/24 15:32 Oxygen Delivery Method Room Air 02/22/24 14:56 MDM - SOB/Dyspnea MDM Narrative Medical decision making narrative: The patient right now is not showing any distress he is still mildly tachypneic EKG showing sinus rhythm with a heart rate of 99 with multiple PVCs mostly secondary to COPD exacerbation Chest x-ray shows an infiltrate and pneumonia in the left lung CBC shows leukocytosis with a acute kidney injury The patient lactic acid is not elevated and with his history of congestive heart failure and he presented with that almost a few months ago the patient will be hydrated gently with IV fluids he was started with 1 L in addition to cover him with levofloxacin for pneumonia Patient already received Solu-Medrol 125 mg by the EMS and he received at least 2 breathing treatment in the ER The patient case was discussed with Dr. Barrett and he agreed with above-mentioned plan Lab Data Labs: Lab Results 02/22/24 Range/Units 14:54 WBC 13.3 H (4.0-11.0) 10^3/uL RBC 4.02 L (4.70-6.10) 10^6/uL Hgb 12.3 L (14.0-18.0) g/dL Hct 35.9 L (42.0-54.0) % MCV 89.3 (80.0-94.0) fL MCH 30.6 (25.9-34.0) pg MCHC 34.3 (29.9-35.2) g/dL RDW 12.8 (11.0-15.0) % Plt Count 155 (150-450) 10^3/uL MPV 10.1 (9.5-13.5) fL Neut % (Auto) 80.1 H (43.0-75.0) % Lymph % (Auto) 7.7 L (20.5-60.0) % Boone % (Auto) 11.3 (1.7-12.0) % Eos % (Auto) 0.2 L (0.9-7.0) % Baso % (Auto) 0.2 (0.2-2.0) % Neut # (Auto) 10.6 H (1.4-6.5) 10^3/uL Lymph # (Auto) 1.0 L (1.2-3.8) 10^3/uL Boone # (Auto) 1.5 H (0.3-0.8) 10^3/uL Eos # (Auto) 0.0 (0.0-0.7) 10^3/uL Baso # (Auto) 0.0 (0.0-0.1) 10^3/uL Abs Immat Gran (auto) 0.07 H (0.00-0.03) 10^3/uL Imm/Tot Granulo (auto) 0.5 (0.0-0.5) % PT 12.2 H (9.0-11.6) sec INR 1.17 Sodium 136 (136-145) mmol/L Potassium 3.7 (3.5-5.1) mmol/L Chloride 96 L (98-107) mmol/L Carbon Dioxide 27.5 (21.0-32.0) mmol/L Anion Gap 16.2 BUN 72.0 H (7.0-18.0) mg/dL Creatinine 3.52 H (0.70-1.30) mg/dL Est GFR ( Amer) 20 L (>=60 mL/min/1.73m^2) Est GFR (Non-Af Amer) 17 L (>=60 mL/min/1.73m^2) BUN/Creatinine Ratio 20.5 Glucose 159 H (74-106) mg/dL Lactate 2.0 (0.4-2.0) mmol/L Calcium 8.5 (8.5-10.1) mg/dL Magnesium 1.7 L (1.8-2.4) mg/dL Total Bilirubin 1.4 H (0.2-1.0) mg/dL AST 213 H (15-37) U/L ALT 148 H (16-63) U/L Alkaline Phosphatase 75 (46-116) U/L Troponin I High Sens 67.7 (4.0-76.1) pg/mL Total Protein 6.0 L (6.4-8.2) g/dL Albumin 2.3 L (3.4-5.0) g/dL Globulin 3.7 g/dL Albumin/Globulin Ratio 0.6 Discharge Plan Discharge Chief Complaint: Shortness of Breath/Dyspnea Clinical Impression: Pneumonia, CARLA (acute kidney injury), COPD exacerbation, Arm ulcer Patient Disposition: Admitted As Inpatient Time of Disposition Decision: 15:40
[2024-02-22] MEDS: LEVOFLOXACIN IN DEXTROSE 5 % 750 MG/150 ML PREMIX 100 MG IV (15:42)
[2024-02-22] MEDS: 0.9 % SODIUM CHLORIDE 1,000 ML 1000 ML IV (15:42)
--- NOTE | 2024-02-22 16:51 | P.HP_ITS ---
HPI H&P: HPI History of Present Illness Chief complaint: Pneumonia CARLA COPD EXAC Narrative: Patient presented to the emergency room with increasing cough and weakness. Found to have left lower lobe pneumonia with acute exacerbation of COPD with acute hypoxic respiratory failure with O2 sat of 81%. I saw patient up on the medical surgical floor, he had mild to moderate respiratory distress with conversational dyspnea. Cough throughout the evaluation. Opioid HPI Opioid Management Most Recent Pain and Opioid Data: Last Pain Scale 0 06/06/23 10:19 06/06/23 Last Pain Intensity 0 06/06/23 10:19 06/06/23 Last ORT Total Score 0 06/04/23 12:17 06/04/23 Last ORT Risk Category Low Risk 06/04/23 12:17 06/04/23 Review of Systems ROS Status of ROS 10 or more systems reviewed and unremark able except as noted in history and below [facility] Medical History (Updated 02/22/24 @ 18:15 by Prashant Barrett MD) COPD (chronic obstructive pulmonary disease) ?J44.9 - Chronic obstructive pulmonary disease, unspecified (ICD-10) Chronic back pain ?M54.9 - Dorsalgia, unspecified (ICD-10) ?G89.29 - Other chronic pain (ICD-10) Anxiety ?F41.9 - Anxiety disorder, unspecified (ICD-10) Hyperlipidemia ?E78.5 - Hyperlipidemia, unspecified (ICD-10) Non-insulin dependent diabetes mellitus Hypertension ?I10 - Essential (primary) hypertension (ICD-10) History of myocardial infarct at age less than 60 years ?I25.2 - Old myocardial infarction (ICD-10) Family History Aunt Family history of cancer Social History Within the past year, how often did you have a drink containing alcohol: never Score interpretation: A score less than 4 is consistent with normal alcohol consumption. Smoking status: Current every day smoker Non-prescribed substance use: denies use Previous occupational history: [employer] at [employer] Highest level of school completed/degree received: 10th grade Do you want help with school or training: No Are you now , , , , never or living with a partner: Little interest or pleasure in doing things: not at all Feeling down, depressed, or hopeless: not at all Life stressors: recent of family or friend Life stressor details: passed four weeks ago Do you think of yourself as: straight/heterosexual Gender Identity: male Meds Home Medications and Allergies Home Medications ?Medication ?Instructions ?Recorded ?Confirmed ?Type albuterol sulfate 90 mcg/actuation 2 inh inhalation Q4H PRN shortness 06/04/23 02/22/24 History aerosol inhaler of breath or wheezing blood sugar diagnostic (Accu-Chek 06/04/23 02/22/24 History Guide test strips) carvedilol 25 mg tablet 25 mg PO Q12H 06/04/23 02/22/24 History cyclobenzaprine 10 mg tablet 10 mg PO DAILY 06/04/23 02/22/24 History ipratropium 0.5 mg-albuterol 3 mg 3 ml inhalation Q4H PRN shortness 06/04/23 02/22/24 History (2.5 mg base)/3 mL nebulization of breath or wheezing soln metformin 500 mg tablet,extended 500 mg PO BID 06/04/23 02/22/24 History release 24 hr oxycodone-acetaminophen 10 mg-325 1 tab PO Q6H PRN pain 06/04/23 02/22/24 History mg tablet rosuvastatin 20 mg tablet 20 mg PO QPM 06/04/23 02/22/24 History furosemide 40 mg tablet 40 mg PO DAILY 12/31/23 02/22/24 History spironolactone 25 mg tablet 25 mg PO DAILY 02/22/24 02/22/24 History Allergies Allergy/AdvReac Type Severity Reaction Status Date / Time No Known Drug Allergies Allergy Verified 06/04/23 06:04 Exam Constitutional Vital Signs, click to edit/add: Last Vital Signs Temp 99.1 F 02/22/24 14:30 Pulse 94 H 02/22/24 16:31 Resp 23 H 02/22/24 16:31 BP 115/71 02/22/24 16:19 Pulse Ox 91 L 02/22/24 16:19 O2 Del Method Room Air 02/22/24 14:56 Documenting provider has reviewed patient's vital signs: yes Common normals: apparent distress (Looks cachectic and respiratory distress with conversational dyspnea) HENMT Common normals: normocephalic Respiratory Common normals: abnormal respiratory effort (Mild to moderate conversational dyspnea) Auscultation: rhonchi, wheezes, breath sounds absent and egophony left lower Cardio Common normals: regular rate, regular rhythm and no murmurs Extremity Common normals: abnormal to inspection (Trace edema with multiple abrasions in different stages of healing) Other: Left hip with decubitus Results Labs Labs: Short CBC 02/22/24 Range/Units 14:54 WBC 13.3 H (4.0-11.0) 10^3/uL Hgb 12.3 L (14.0-18.0) g/dL Hct 35.9 L (42.0-54.0) % Plt Count 155 (150-450) 10^3/uL BMP 02/22/24 14:54 Sodium 136 Potassium 3.7 Chloride 96 L Carbon Dioxide 27.5 BUN 72.0 H Creatinine 3.52 H Glucose 159 H Calcium 8.5 Liver Function 02/22/24 Range/Units 14:54 Total Bilirubin 1.4 H (0.2-1.0) mg/dL AST 213 H (15-37) U/L ALT 148 H (16-63) U/L Alkaline Phosphatase 75 (46-116) U/L Albumin 2.3 L (3.4-5.0) g/dL Assessment and Plan Assessment and Plan (1) Arm ulcer: (2) COPD exacerbation: (3) Acute renal failure: (4) Moderate protein-calorie malnutrition: (5) Hypertension: Qualifiers: Hypertension type: primary hypertension Qualified Code(s): I10 - Essential (primary) hypertension (6) Non-insulin dependent diabetes mellitus: (7) Hyperlipidemia: Qualifiers: Hyperlipidemia type: unspecified Qualified Code(s): E78.5 - Hyperlipidemia, unspecified (8) COPD (chronic obstructive pulmonary disease): Qualifiers: COPD type: unspecified COPD Qualified Code(s): J44.9 - Chronic obstructive pulmonary disease, unspecified (9) Hypomagnesemia: (10) Elevated brain natriuretic peptide (BNP) level: (11) Elevated liver function tests: Plan Admission findings: Sinus tachycardia, respiratory distress, acute hypoxic respiratory failure with O2 sat of 81%, leukocytosis, borderline lactate (upper limit of normal is 2 and he is 2, will repeat) elevated liver function tests, secondary to left lower lobe pneumonia causing acute exacerbation of COPD and resulting in sepsis. BNP significantly elevated so unable to give aggressive fluid resuscitation Sepsis due to left lower lobe pneumonia causing acute exacerbation of COPD- steroids, IV antibiotics, aerosol treatments, try to obtain sputum culture, check COVID, RSV, influenza, Acute renal failure-baseline creatinine of 1.05, creatinine admission of 3.52 which is 335.2% above baseline.-Gentle hydration secondary to the elevated BNP Elevated BNP likely secondary to the dehydration-monitor daily Elevated high-sensitivity troponin-EKG is normal, patient denies any chest pain- will repeat labs, potentially related to the acute renal failure as outlined above Elevated liver function test-no abdominal pain-likely secondary to passive congestion from the acute renal failure as outlined above-repeat labs in arobert. Hypomagnesemia-supplement Diabetes mellitus-insulin sliding scale Moderate protein calorie malnutrition-diet supplement Multiple abrasions secondary to recurrent falls also with left hip decubitus- consult to wound Hypercholesterolemia continue with home medications Hypertension-continue with home medications Admission status: Patient admitted with significant left lower lobe pneumonia causing acute exacerbation of COPD and acute hypoxic respiratory failure requiring implementation of supplemental oxygen with tachycardia and respiratory distress resulting in sepsis. Acute renal failure. Medically necessary treatment will span 2 midnights. Inpatient status.
--- OUTSIDE RECORDS SUMMARY | 2024-02-22 16:53 | XMS_ITS | CCD ---
Author Organization [facility] Care Team Providers Care Hematologist Name Role Phone PHYSICIAN, DEFAULT Unavailable Unavailable [...] Primary Care Provider Juan RANDLE, Crystal Unavailable [phone] BERTO, SIVA Attending Unavailable NADERER, SIVA Attending [...] daily as needed for pain HYDROcodone-acetam inophen ([place]) 5-325 MG tablet Indications: DDD (degenerative disc [...] severe pain 120 tablet 01/28/2024 02/27/2024 Active [id number] 200 actuat albuterol 0.09 mg/actuat metered dose [...] Start: 10-22-2023 take 2 tablets by mo [facility] twice daily metFORMIN XR (Glucophage-XR) 500 MG 24 hr tablet Indications: Type 2 diabetes mellitus with hyperglycemia, without long-term current use of insulin ([facility]) TAKE TWO TABLETS BY MOUTH TWICE A DAY 360 tablet 10/22/2023 Active take 2 tablets by mo [facility] in the morning metFORMIN (Glucophage) 500 MG tablet Take 1,000 mg by mouth in the morning and 1,000 mg in the evening. Take with meals. 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 Angelo Garcia Basophils/100 WBC (Bld) 0.5 % Normal 0.2-2.0 [facility] Comment on above: Performed By: #### C BC #### [facility] [address] [place] [address] Dr. Angelo Garcia EO # 0.3 103/ul Normal 0.0-0.7 [facility] Comment on above: Performed By: #### C BC #### [facility] [address] [place] [address] Dr. Angelo Garcia Eosinophils/100 WBC (Bld) 3.3 % Normal 0.9-7.0 [facility] Comment on above: Performed By: #### C BC #### [facility] [address] [place] [address] Dr. Angelo Garcia Erythrocyte distribution width (RBC) [Ratio] 11.9 % Normal 11.0-15.0 [facility] Comment on above: Performed By: #### C BC #### [facility] [address] [place] [address] Dr. Angelo Garcia Hematocrit (Bld) [Volume fraction] 42.3 % Normal 42.0-54.0 [facility] Comment on above: Performed By: #### C BC #### [facility] [address] [place] [address] Dr. Angelo Garcia Hemoglobin (Bld) [Mass/Vol] 14.4 g/dL Normal 14.0-18.0 [facility] Comment on above: Performed By: #### C BC #### [facility] [address] [place] [address] Dr. Angelo Garcia IG # 0.03 10e3/ul Normal 0.00-0.03 [facility] Comment on above: Performed By: #### C BC #### [facility] [address] [place] [address] Dr. Angelo Garcia IG % 0.4 % Normal 0.0-0.5 [facility] Comment on above: Performed By: #### C BC #### [facility] [address] [place] [address] Dr. Angelo Garcia LYMPH # 2.1 103/ul Normal 1.2-3.8 [facility] Comment on above: Performed By: #### C BC #### [facility] [address] [place] [address] Dr. Angelo Garcia Lymphocytes/100 WBC (Bld) 28.3 % Normal 20.5-60.0 [facility] Comment on above: Performed By: #### C BC #### [facility] [address] [place] [address] Dr. Angelo Garcia MANUAL DIFF REQ NO Normal [facility] Comment on above: Performed By: #### C BC #### [facility] [address] [place] [address] Dr. Angelo Garcia MCH (RBC) [Entitic mass] 31.0 pg Normal 25.9-34.0 [facility] Comment on above: Performed By: #### C BC #### [facility] [address] [place] [address] Dr. Angelo Garcia MCHC (RBC) [Mass/Vol] 34.0 g/dL Normal 29.9-35.2 [facility] Comment on above: Performed By: #### C BC #### [facility] [address] [place] [address] Dr. Angelo Garcia MCV (RBC) [Entitic vol] 91.0 fL Normal 80.0-94.0 [facility] Comment on above: Performed By: #### C BC #### [facility] [address] [place] [address] Dr. Angelo Garcia MONO # 0.8 103/ul Normal 0.3-0.8 [facility] Comment on above: Performed By: #### C BC #### [facility] [address] [address] [address] Angelo Garcia Monocytes/100 WBC (Bld) 10.0 % Normal 1.7-12.0 [facility] Comment on above: Performed By: #### C BC #### [facility] [address] [address] [address] Angelo Garcia NEUT # 4.4 103/ul Normal 1.4-6.5 [facility] Comment on above: Performed By: #### C BC #### [facility] [address] [address] [address] Angelo Garcia Neutrophils/100 WBC (Bld) 57.5 % Normal 43.0-75.0 [facility] Comment on above: Performed By: #### C BC #### [facility] [address] [place] [address] Dr. Angelo Garcia Platelet mean volume (Bld) [Entitic vol] 9.9 fL Normal 9.5-13.5 [facility] Comment on above: Performed By: #### C BC #### [facility] [address] [place] [address] Dr. Angelo Garcia PLT 123 103/ul Critically low 150-450 [facility] Comment on above: Performed By: #### C BC #### [facility] [address] [place] [address] Dr. Angelo Garcia RBC 4.65 106/ul Critically low 4.70-6.10 [facility] Comment on above: Performed By: #### C BC #### [facility] [address] [place] [address] Dr. Angelo Garcia WBC 7.6 103/ul Normal 4.0-11.0 [facility] Comment on above: Performed By: #### C BC #### [facility] [address] [place] [address] Dr. Angelo Garcia GLYCOHEMOGLOBIN A1Con 2022 ADA RECOMMENDATION SEE BELOW Normal [facility] Comment on above: Result Comment: ADA RECOMMENDED LIMIT 4.0 - 6.0 ADA THERAPEUTIC TARGET < 7.0 ACTION SUGGESTED > 7.0 Performed By: #### A 1C #### [facility] [address] [place] [address] Dr. Angelo Garcia Glucose [Mass/Vol] 183 mg/dL Normal [facility] Comment on above: Performed By: #### A 1C #### [facility] [address] [address] [address] Angelo Garcia HbA1c (Bld) [Mass fraction] 8.0 % Critically high 4.5-6.2 [facility] Comment on above: Performed By: #### A 1C #### [facility] [address] [place] [address] Dr. Angelo Garcia LIPID PROFILEon 06-29-2022 CHOL-HDL RATIO NORM SEE BELOW Normal [facility] Comment on above: Result Comment: 3.3 - 4.4 LOW RISK 4.4 - 7.1 AVERAGE RISK 7.1 - 11.0 MODERATE RISK >11.0 HIGH RISK Performed By: #### L IVER, LIPID, BMP #### [facility] [address] [place] [address] Dr. Angelo Garcia Cholesterol [Mass/Vol] 101 mg/dL Normal <=200 [facility] Comment on above: Performed By: #### L IVER, LIPID, BMP #### [facility] [address] [place] [address] Dr. Angelo Garcia Cholesterol in HDL [Mass/Vol] 45 mg/dL Normal 40-60 [facility] Comment on above: Performed By: #### L IVER, LIPID, BMP #### [facility] [address] [place] [address] Dr. Angelo Garcia Cholesterol in LDL [Mass/Vol] -3.2000 mg/dL Normal [facility] Comment on above: Performed By: #### L IVER, LIPID, BMP #### [facility] [address] [place] [address] Dr. Angelo Garcia Cholesterol.total/Cho lesterol in HDL [Mass ratio] 2.2 {ratio} Normal [facility] Comment on above: Performed By: #### L IVER, LIPID, BMP #### [facility] [address] [address] [address] Angelo Garcia HDL NORMAL > or = 60 mg/dl - LO W CARDIOVASCULAR RISK <40 mg/dl - HIGH CARDIOVASCULAR RISK Normal [facility] Comment on above: Performed By: #### L IVER, LIPID, BMP #### [facility] [address] [address] [address] Angelo Garcia LDL CALC NORMAL SEE BELOW Normal [facility] Comment on above: Result Comment: <100 mg/dl OPTIMAL 100 - 129 mg/dl NEAR OR ABOVE OPTIMAL 130 - 159 mg/dl BORDERLINE HIGH 160 - 189 mg/dl HIGH >190 mg/dl VERY HIGH Performed By: #### L IVER, LIPID, BMP #### [facility] [address] [address] [address] Angelo Garcia Triglyceride [Mass/Vol] 296 mg/dL Critically high <=150 [facility] Comment on above: Performed By: #### L IVER, LIPID, BMP #### [facility] [address] [address] [address] Angelo Garcia VLDL CALC 59.2 mg/dL Normal [facility] Comment on above: Performed By: #### L IVER, LIPID, BMP #### [facility] [address] [address] [address] Angelo Garcia LIVER PROFILEon 06-29-2022 Albumin [Mass/Vol] 3.6 g/dL Normal 3.4-5.0 [facility] Comment on above: Performed By: #### L IVER, LIPID, BMP #### [facility] [address] [address] [address] Angelo Garcia Albumin/Globulin [Mass ratio] 1.2 {ratio} Normal [facility] Comment on above: Performed By: #### L IVER, LIPID, BMP #### [facility] [address] [address] [address] Angelo Garcia ALP [Catalytic activity/Vol] 89 U/L Normal 46-116 [facility] Comment on above: Performed By: #### L IVER, LIPID, BMP #### [facility] [address] [address] [address] Angelo Garcia ALT [Catalytic activity/Vol] 25 U/L Normal 16-63 [facility] Comment on above: Performed By: #### L IVER, LIPID, BMP #### [facility] [address] [address] [address] Angelo Garcia AST [Catalytic activity/Vol] 15 U/L Normal 15-37 [facility] Comment on above: Performed By: #### L IVER, LIPID, BMP #### [facility] [address] [address] [address] Angelo Garcia BILI, CONJUGATED 0.1 mg/dL Normal 0.0-0.2 [facility] Comment on above: Performed By: #### L IVER, LIPID, BMP #### [facility] [address] [place] [address] Dr. Angelo Garcia Bilirubin [Mass/Vol] 0.4 mg/dL Normal 0.2-1.0 [facility] Comment on above: Performed By: #### L IVER, LIPID, BMP #### [facility] [address] [address] [address] Angelo Garcia Globulin (S) [Mass/Vol] 3.1 g/dL Normal [facility] Comment on above: Performed By: #### L IVER, LIPID, BMP #### [facility] [address] [address] [address] Angelo Garcia Protein [Mass/Vol] 6.7 g/dL Normal 6.4-8.2 [facility] Comment on above: Performed By: #### L IVER, LIPID, BMP #### [facility] [address] [address] [address] Angelo Garcia MICROALBUMIN, RAND URon 06-11 mALB <1.3 Normal <=30.0 [facility] Comment on above: Performed By: #### M ALBR #### [facility] [address] [address] [address] Angelo Garcia PROF CHEM 8 (BAS METB)on Anion gap [Moles/Vol] 12.3 mmol/L Normal [facility] Comment on above: Performed By: #### L IVER, LIPID, BMP #### [facility] [address] [address] [address] Angelo Garcia Calcium [Mass/Vol] 8.7 mg/dL Normal 8.5-10.1 [facility] Comment on above: Performed By: #### L IVER, LIPID, BMP #### [facility] [address] [address] [address] Angelo Garcia Chloride [Moles/Vol] 103 mmol/L Normal 98-107 [facility] Comment on above: Performed By: #### L IVER, LIPID, BMP #### [facility] [address] [place] [address] Dr. Angelo Garcia CO2 [Moles/Vol] 26.0 mmol/L Normal 21.0-32.0 [facility] Comment on above: Performed By: #### L IVER, LIPID, BMP #### [facility] [address] [address] [address] Angelo Garcia Creatinine [Mass/Vol] 1.53 mg/dL Critically high 0.70-1.30 [facility] Comment on above: Performed By: #### L IVER, LIPID, BMP #### [facility] [address] [place] [address] Dr. Angelo Garcia EGFR-AF ITALIAN 53 mL/min/1.73m2 Critically low >=60 [facility] Comment on above: Performed By: #### L IVER, LIPID, BMP #### [facility] [address] [place] [address] Dr. Angelo Garcia EGFR-NON AF [place] 44 mL/min/1.73m2 Critically low >=60 [facility] Comment on above: Performed By: #### L IVER, LIPID, BMP #### [facility] [address] [address] [address] Angelo Garcia Glucose [Mass/Vol] 197 mg/dL Critically high 74-106 [facility] Comment on above: Performed By: #### L IVER, LIPID, BMP #### [facility] [address] [place] [address] Dr. Angelo Garcia Potassium [Moles/Vol] 4.3 mmol/L Normal 3.5-5.1 [facility] Comment on above: Performed By: #### L IVER, LIPID, BMP #### [facility] [address] [place] [address] Dr. Angelo Garcia Sodium [Moles/Vol] 137 mmol/L Normal 136-145 [facility] Comment on above: Performed By: #### L IVER, LIPID, BMP #### [facility] [address] [place] [address] Dr. Angelo Garcia Urea nitrogen [Mass/Vol] 31.0 mg/dL Critically high 7.0-18.0 [facility] Comment on above: Performed By: #### L IVER, LIPID, BMP #### [facility] [address] [place] [address] Dr. Angelo Garcia Urea nitrogen/Creatinine [Mass ratio] 20.3 mg/mg Normal [facility] Comment on above: Performed By: #### L IVER, LIPID, BMP #### [facility] [address] [place] [address] Dr. Angelo Garcia GLYCOHEMOGLOBIN A1Con 2021 ADA RECOMMENDATION SEE BELOW Normal [facility] Comment on above: Result Comment: ADA RECOMMENDED LIMIT 4.0 - 6.0 ADA THERAPEUTIC TARGET < 7.0 ACTION SUGGESTED > 7.0 Performed By: #### A 1C #### [facility] [address] [place] [address] Dr. Angelo Garcia Glucose [Mass/Vol] 160 mg/dL Normal [facility] Comment on above: Performed By: #### A 1C #### [facility] [address] [place] [address] Dr. Angelo Garcia HbA1c (Bld) [Mass fraction] 7.2 % Critically high 4.5-6.2 [facility] Comment on above: Performed By: #### A 1C #### [facility] [address] [place] [address] Dr. Angelo Garcia RAD - CT Reporton 01-21-2020 RAD - CT Report [id number] .[id number]:127 Normal [facility] Ambulatory Clinical Summaryo n 01-20-2020 Ambulatory Clinical Summary {[id number]}CD:[id number] Normal [facility] Ambulatory Clinical Summary {[id number]}CD:[id number] Normal [facility] Ambulatory Clinical Summary {[id number]}CD:[id number] Normal [facility] Patient Educationon 01-20-20 Patient Education Family [...] Document Reviewed: 03/08/2012 ExitCare? Patient Information ?2013 TapFwd. Urinary Frequency The number of times a [...] 12/23/2009 Document Revised: 05/20/2012 Document Reviewed: 12/23/2009 [facility]? Patient Information ?2013 TapFwd. Kidney Stones Kidney stones (ureteral lithiasis ) [...] Document Reviewed: 12/24/2009 ExitCare? Patient Information ?2013 TapFwd. Normal [facility] Urology Office/Clinic Noteon 01-20-2020 Urology Office/Clinic Note Chief Complaint New Pt HPI Staff New Pt. [facility] did a phone consult over the phone on 01/12/2020 from [facility]. KUB done 01/15/2020, CT SCAN done 01/12/2020, ER report from [facility] 01/12/2020. Dysuria: denies pain or burning Incomplete [...] P Additional Instructions: Patient Education Intravenous Pyelography, Ndbd-[id number] Urinary Frequency Kidney Stones, Bjdt-my-Uxfy IGiulia, personally scribed for Dr. Hurley on [...] Oral, Daily metformin, 500 mg, Oral, Daily [place] 325 mg-5 mg oral tablet, 1 tab(s), [...] Dipstick: 1+ (30 mg/dl) (01/20/20 14:33:00) Specific [place] Urine Dipstick: >=1.030 (01/20/20 14:33:00) Urine Color Urine Dipstick: Yellow (01/20/20 14:33:00) Urobilinogen Urine Dipstick: Normal 0.2-1 EU/dl (01/20/20 14:33:00) pH Urine Dipstick: 5 (01/20/20 14:33:00) Normal [facility] Comment on above: Result Comment: Elec tronically Signed By: QUINTIN MUNOZ, Chris P\.br\Date and Time Signed: 01/20/20 15:20 EST\.br\Electronically Co-Signed By: Giulia Rowlandbr\Date and Time Co-Signed: 01/20/20 15:18 EST RAD - MISCon 01-16-2020 RAD - MISC [id number]. [id number]:127 Normal [facility] Vital Signs Date Time Vital Sign Value Performing Clinician Faci lity 01-29-2024 13:32-0500 Body height 167.6 cm Siva Thomson MD Work Phone: [facility] 01-29-2024 13:32-0500 Body mass index (BMI) [Ratio] 20.98 kg/m2 Siva Thomson MD Work Phone: [facility] 01-29-2024 13:32-0500 Body temperature 97.81 [degF] Siva Thomson MD Work Phone: [facility] 01-29-2024 13:32-0500 Body weight 58.97 kg Siva Thomson MD Work Phone: [facility] 01-29-2024 13:32-0500 Diastolic blood pressure 56 mm[Hg] Siva Thomson MD Work Phone: [facility] 01-29-2024 13:32-0500 Heart rate 57 /min Siva Thomson MD Work Phone: [facility] 01-29-2024 13:32-0500 Respiratory rate 20 /min Siva Thomson MD Work Phone: [facility] 01-29-2024 13:32-0500 SaO2% (BldA) [Mass fraction] 99 % Siva Thomson MD Work Phone: [facility] 01-29-2024 13:32-0500 Systolic blood pressure 116 mm[Hg] Siva Thomson MD Work Phone: [facility] 12-20-2023 10:49-0400 Body height 167.6 cm Siva Thomson MD Work Phone: [facility] 12-20-2023 10:49-0400 Body mass index (BMI) [Ratio] 21.63 kg/m2 Siva Thomson MD Work Phone: [facility] 12-20-2023 10:49-0400 Body temperature 97.3 [degF] Siva Thomson MD Work Phone: [facility] 12-20-2023 10:49-0400 Body weight 60.78 kg Siva Thomson MD Work Phone: [facility] 12-20-2023 10:49-0400 Diastolic blood pressure 52 mm[Hg] Siva Thomson MD Work Phone: [facility] 12-20-2023 10:49-0400 Heart rate 63 /min iSva Thomson MD Work Phone: [facility] 12-20-2023 10:49-0400 Respiratory rate 20 /min Siva Thomson MD Work Phone: [facility] 12-20-2023 10:49-0400 SaO2% (BldA) [Mass fraction] 99 % Siva Thomson MD Work Phone: [facility] 12-20-2023 10:49-0400 Systolic blood pressure 108 mm[Hg] Siva Thomson MD Work Phone: [facility] Healthcare Encounters Encounter Date Encounter Type Care Provider Facility Start: 01-29-2024 End: 01-29-2024 Bamboo flowsheet Siva Thomson MD Work Phone: [facility] Start: 01-29-2024 End: 01-29-2024 Bamboo flowsheet Siva Thomson MD Work Phone: [facility] Start: 01-29-2024 End: 01-29-2024 Office outpatient visit 25 minutes Siva Thomson MD Work Phone: [facility] Comment on above: Cracked skin (Primar y Dx); Ischemic finger ulcer, limited to breakdown of skin (HCC) (CMS/HCC); 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); Chronic obstructive pulmonary disease, unspecified COPD type (CMS/HCC); Type 2 diabetes mellitus with hyperglycemia, without long-term current use of insulin ([facility]) Start: 01-29-2024 End: 01-29-2024 ambulatory SIVA THOMSON Not Available Start: 01-28-2024 End: 01-28-2024 Refill Siva Thomson MD Work Phone: [facility] Comment on above: DDD (degenerative di sc disease), lumbar Start: 01-03-2024 End: 01-03-2024 Refill Ebony Kianna [facility] Comment on above: CAD in [place] artery ([facility]) (Primary Dx) Start: 12-25-2023 End: 12-25-2023 Refill [...] Start: 04-23-2023 Refill Siva Hess Work Phone: [facility] Comment on above: DDD (degenerative di sc disease), lumbar Start: 06-29-2022 End: 06-30-[address] SIVA THOMSON Facility:[facility] Start: 11-15-2021 End: 11-16-[address] SIVA THOMSON Facility:[facility] Start: 08-24-2016 End: 08-25-2016 Ambulatory DEFAULT PHYSICIAN Facility:[facility] Procedures Date Procedure Procedure Detail Performing Clinician Start: 06-29-[address] SIVA LUNDY Comment on above: Performed By: #### [facility] #### [facility] [address] [place] [address] Dr. Angelo Garcia Plan of Treatment Date Care Activity Detail Author Start: 09-25-2024 Urine screening for protein Diabetes: Urine Protein Screening [facility] Start: 04-23-2024 End: 04-23-2024 Patient encounter procedure 04/23/2024 1:30 PM EST Office Visit [facility] [address] [place] [phone] Siva Thomson MD [address] [place] [phone] [facility] Start: 04-22-2024 End: 04-22-2024 Patient encounter procedure 04/22/2024 1:00 PM EST Office Visit [facility] [address] [place] [phone] Siva Thomson MD [address] [place] [phone] [facility] Start: 03-28-2024 Hemoglobin A1c measurement Diabetes: Hemoglobin A1C [facility] Start: 01-29-2024 End: 01-28-2025 US.doppler Upper extremity artery - bilateral Vascular US upper extremity arterial duplex bilateral with Doppler Imaging Routine Ischemic finger ulcer, limited to breakdown of skin (HCC) ([facility]/HCC) 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) Type 2 diabetes mellitus with hyperglycemia, without long-term current use of insulin ([facility]) Expected: 01/29/2024, Expires: 01/28/2025 [facility] Work Phone: Comment on above: Expected: 01/29/2024 , Expires: 01/28/2025 Start: 01-29-2024 End: 01-29-2024 Patient encounter procedure [facility] Comment on above: Arrived Start: 12-27-2023 Hemoglobin A1c measurement Diabetes: Hemoglobin A1C [facility] Start: 12-20-2023 End: 12-20-2023 Patient encounter procedure 12/20/2023 11:00 AM EDT Office Visit [facility] [address] [place] [phone] Siva Thomson MD [address] [place] [phone] Arrived [facility] Comment on above: Arrived Start: 11-11-2023 Influenza vaccination Influenza Vacc ine (#1) [facility] Start: 05-23-2023 End: 05-23-2023 Patient encounter procedure 05/23/2023 1:15 PM EDT Office Visit [facility] [address] [place] [address] Siva Thomson MD [address] [place] [phone] [facility] Start: 04-08-2018 Pneumococcal Vaccine : 65+ Years (2 - PPSV23 or PCV20) Pneumococcal Vaccine: 65+ Years (2 - PPSV23 or PCV20) [facility] Start: 04-08-2018 Pneumococcal Vaccine : 65+ Years (2 of 2 - PPSV23 or PCV20) Pneumococcal Vaccine: 65+ Years (2 of 2 - PPSV23 or PCV20) [facility] Start: 1961 Urine screening for protein Diabetes: Urine Protein Screening [facility] Start: 02-27-1952 Glaucoma screening Diabetes: R etinopathy Screening [facility] Start: 1940 Hemoglobin A1c measurement Diabetes: Hemoglobin A1C [facility] Start: 1940 Medicare Annual Wellness (AWV) Medicare Annual Wellness (AWV) [facility] Immunizations Immunization Date Immunization Notes Care Provider Fa martin 12-04-2022 influenza virus vacc ine, unspecified formulation Siva Thomson MD Work Phone: [facility] Payers Date Payer Category Payer Medicare [facility] [id number] 2021-Present [address] [place] [address] [id number] 2021 Medicare (Managed Care) [facility] ADVANTAGE Member Subscriber Plan / Payer (Effective 2021-Present) Name: Doc Ash A Relation to Subscriber: Self Name: DocAsh winn Payer ID: Not on file Group ID: [id number] Type: Not on file Address: [address] [place] [id number] 1959 Unknown [id number] 1942 Unknown [id number] .[id number] 1942 Unknown [id number] .[id number] 1942 Unknown [id number] .[id number] 1942 Unknown [id number] .[id number] 1942 Unknown [id number] .2.1259 1942 Unknown [id number] .[id number] 1942 Unknown [id number] .2.1259 1942 Unknown [id number] .[id number] Unknown Social History Date Type Detail Facility Start: 04-19-2023 End: 05-23-2023 Tobacco smoking status WIIS Occasional tobacco smoker [facility] History of tobacco use Cigarette Smoker N [facility] Start: 04-19-2023 End: 10-17-2023 Cigarettes smoked current (pack per day) - Reported 1 [facility] Start: 04-19-2023 End: 10-17-2023 Tobacco use panel [facility] Start: 1940 Sex Assigned At Not on file N [facility] Start: 05-23-2023 Tobacco use and exposure Smoke less tobacco non-user [facility] Medical Equipment Procedure Code Equipment Code Equipment Origin al Text Equipment Identifier Dates USE DIRECTED to test THREE TIMES DAILY [id number] Start: 05-24-2023 History of Present illness Narrative [...] toes. Never had before. No rash on netbackup engineer or palms of hand. No numbness [...] List Items Addressed This Visit CAD in [place] artery ([facility]) Relevant Orders Vascular US upper extremity arterial duplex bilateral with Doppler COPD (chronic obstructive pulmonary disease) ([facility]) Type 2 diabetes mellitus with hyperglycemia, without long-term current use of insulin ([facility]) Relevant Orders Vascular US upper extremity arterial duplex bilateral with Doppler Cracked skin - Primary Unclear etiology but lesions and start steroid cream. Possibly related to PVD and check arterial US. Relevant Medications triamcinolone (Kenalog) 0.5 % cream Ischemic finger ulcer, limited to breakdown of skin ([facility]) ([facility]/HCC) Check US. Relevant Orders Vascular US upper [...] 25 MG tablet documented in this encounter [facility] Evaluation note Note Date & Type Note Facility Evaluation note Diagnosis DDD (degenerative disc disease), lumbar Degeneration of lumbar or lumbosacral intervertebral disc documented in this encounter [facility] Evaluation note Note Date & Type Note Facility Evaluation note Diagnosis Acute non-recurrent pansinusitis- Primary Vertigo Dizziness and giddiness documented in this encounter [facility] Evaluation note Note Date & Type Note Facility Evaluation note Diagnosis Type 2 diabetes mellitus with hyperglycemia, without long-term current use of insulin ([facility])- Primary Essential hypertension, benign ([facility]) Essential hypertension, benign DDD (degenerative disc disease), lumbar Degeneration of lumbar or lumbosacral intervertebral disc Chronic obstructive pulmonary disease, unspecified COPD type ([facility]) Tobacco user Tobacco use disorder Generalized anxiety disorder ([facility]) Generalized anxiety disorder Hyperkalemia- Primary Hyperpotassemia COPD with acute exacerbation ([facility]) Primary insomnia Persistent disorder of initiating or maintaining sleep Acute kidney injury ([facility]) Encounter for long-term (current) use of medications Encounter for long-term (current) use of other medications Type 2 diabetes mellitus with hyperglycemia, without long-term current use of insulin ([facility])- Primary Essential hypertension, benign ([facility]) Essential hypertension, benign COPD with acute exacerbation ([facility]) Generalized anxiety disorder ([facility]) Generalized anxiety disorder DDD (degenerative disc disease), lumbar Degeneration of lumbar or lumbosacral intervertebral disc Encounter for long-term (current) use of medications Encounter for long-term (current) use of other medications Dyslipidemia ([facility]) Other and unspecified hyperlipidemia Screening PSA (prostate specific antigen) Special screening for malignant neoplasm of prostate Bilateral leg edema Edema Type 2 diabetes mellitus with other specified complication, without long-term current use of insulin ([facility]) Type 2 diabetes mellitus with hyperglycemia, without long-term current use of insulin ([facility])- Primary Essential hypertension, benign ([facility]) Essential hypertension, benign Chronic obstructive pulmonary disease, unspecified COPD type ([facility]) Bilateral leg edema Edema Generalized anxiety disorder ([facility]) Generalized anxiety disorder DDD (degenerative disc disease), lumbar Degeneration of lumbar or lumbosacral intervertebral disc Type 2 diabetes mellitus with diabetic chronic kidney disease ([facility]) Chronic kidney disease, stage 3a ([facility]) ([facility]) Acute non-recurrent pansinusitis- Primary Vertigo Dizziness and giddiness DDD (degenerative disc disease), lumbar Degeneration of lumbar or lumbosacral intervertebral disc documented in this encounter [facility] Evaluation note Note Date & Type Note Facility Evaluation note Diagnosis Type 2 diabetes mellitus with hyperglycemia, without long-term current use of insulin ([facility])- Primary Essential hypertension, benign ([facility]) Essential hypertension, benign DDD (degenerative disc disease), lumbar Degeneration of lumbar or lumbosacral intervertebral disc Chronic obstructive pulmonary disease, unspecified COPD type ([facility]) Tobacco user Tobacco use disorder Generalized anxiety disorder ([facility]) Generalized anxiety disorder Hyperkalemia- Primary Hyperpotassemia COPD with acute exacerbation ([facility]) Primary insomnia Persistent disorder of initiating or maintaining sleep Acute kidney injury ([facility]) Encounter for long-term (current) use of medications Encounter for long-term (current) use of other medications Type 2 diabetes mellitus with hyperglycemia, without long-term current use of insulin ([facility])- Primary Essential hypertension, benign ([facility]) Essential hypertension, benign COPD with acute exacerbation ([facility]) Generalized anxiety disorder ([facility]) Generalized anxiety disorder DDD (degenerative disc disease), [...] complication, without long-term current use of insulin ([facility]) Type 2 diabetes mellitus with hyperglycemia, without long-term current use of insulin ([facility])- Primary Essential hypertension, benign ([facility]/HCC) Essential hypertension, benign Chronic obstructive pulmonary disease, unspecified COPD type ([facility]/HCC) Bilateral leg edema Edema Generalized anxiety disorder ([facility]) Generalized anxiety disorder DDD (degenerative disc disease), lumbar Degeneration of lumbar or lumbosacral intervertebral disc Type 2 diabetes mellitus with diabetic chronic kidney disease ([facility]) Chronic kidney disease, stage 3a (HCC) ([facility]) Acute non-recurrent pansinusitis- Primary Vertigo Dizziness and giddiness CAD in [place] artery ([facility])- Primary documented in this encounter [facility] Evaluation note Note Date & Type Note Facility Evaluation note Diagnosis Type 2 diabetes mellitus with hyperglycemia, without long-term current use of insulin ([facility])- Primary Essential hypertension, benign ([facility]) Essential hypertension, benign DDD (degenerative disc disease), lumbar Degeneration of lumbar or lumbosacral intervertebral disc Chronic obstructive pulmonary disease, unspecified COPD type ([facility]) Tobacco user Tobacco use disorder Generalized anxiety disorder ([facility]) Generalized anxiety disorder Hyperkalemia- Primary Hyperpotassemia COPD with acute exacerbation ([facility]) Primary insomnia Persistent disorder of initiating or maintaining sleep Acute kidney injury ([facility]) Encounter for long-term (current) use of medications Encounter for long-term (current) use of other medications Type 2 diabetes mellitus with hyperglycemia, without long-term current use of insulin ([facility])- Primary Essential hypertension, benign ([facility]) Essential hypertension, benign COPD with acute exacerbation ([facility]) Generalized anxiety disorder ([facility]) Generalized anxiety disorder DDD (degenerative disc disease), lumbar Degeneration of lumbar or lumbosacral intervertebral disc Encounter for long-term (current) use of medications Encounter for long-term (current) use of other medications Dyslipidemia ([facility]/HCC) Other and unspecified hyperlipidemia Screening PSA (prostate specific antigen) Special screening for malignant neoplasm of prostate Bilateral leg edema Edema Type 2 diabetes mellitus with other specified complication, without long-term current use of insulin ([facility]) Type 2 diabetes mellitus with hyperglycemia, without long-term current use of insulin ([facility])- Primary Essential hypertension, benign ([facility]) Essential hypertension, benign Chronic obstructive pulmonary disease, unspecified COPD type ([facility]) Bilateral leg edema Edema Generalized anxiety disorder ([facility]) Generalized anxiety disorder DDD (degenerative disc disease), lumbar Degeneration of lumbar or lumbosacral intervertebral disc Type 2 diabetes mellitus with diabetic chronic kidney disease ([facility]) Chronic kidney disease, stage 3a (HCC) ([facility]) Acute non-recurrent pansinusitis- Primary Vertigo Dizziness and giddiness DDD (degenerative disc disease), lumbar Degeneration of lumbar or lumbosacral intervertebral disc documented in this encounter [facility] Evaluation note Note Date & Type Note Facility Evaluation note Diagnosis Type 2 diabetes mellitus with hyperglycemia, without long-term current use of insulin ([facility])- Primary Essential hypertension, benign ([facility]) Essential hypertension, benign DDD (degenerative disc disease), lumbar Degeneration of lumbar or lumbosacral intervertebral disc Chronic obstructive pulmonary disease, unspecified COPD type ([facility]) Tobacco user Tobacco use disorder Generalized anxiety disorder ([facility]) Generalized anxiety disorder Hyperkalemia- Primary Hyperpotassemia COPD with acute exacerbation ([facility]) Primary insomnia Persistent disorder of initiating or maintaining sleep Acute kidney injury ([facility]) Encounter for long-term (current) use of medications Encounter for long-term (current) use of other medications Type 2 diabetes mellitus with hyperglycemia, without long-term current use of insulin ([facility])- Primary Essential hypertension, benign ([facility]) Essential hypertension, benign COPD with acute exacerbation ([facility]) Generalized anxiety disorder ([facility]) Generalized anxiety disorder DDD (degenerative disc disease), lumbar Degeneration of lumbar or lumbosacral intervertebral disc Encounter for long-term (current) use of medications Encounter for long-term (current) use of other medications Dyslipidemia ([facility]) Other and unspecified hyperlipidemia Screening PSA (prostate specific antigen) Special screening for malignant neoplasm of prostate Bilateral leg edema Edema Type 2 diabetes mellitus with other specified complication, without long-term current use of insulin ([facility]) Type 2 diabetes mellitus with hyperglycemia, without long-term current use of insulin ([facility])- Primary Essential hypertension, benign ([facility]) Essential hypertension, benign Chronic obstructive pulmonary disease, unspecified COPD type ([facility]) Bilateral leg edema Edema Generalized anxiety disorder ([facility]) Generalized anxiety disorder DDD (degenerative disc disease), lumbar Degeneration of lumbar or lumbosacral intervertebral disc Type 2 diabetes mellitus with diabetic chronic kidney disease ([facility]/HCC) Chronic kidney disease, stage 3a (HCC) ([facility]) Cracked skin- Primary Ischemic finger ulcer, limited to breakdown of skin ([facility]) ([facility]) CAD in [place] artery ([facility]) Chronic obstructive pulmonary disease, unspecified COPD type ([facility]) Type 2 diabetes mellitus with hyperglycemia, without long-term current use of insulin ([facility]) documented in this encounter [facility] Evaluation [...] section and content) DATE CREATED AUTHOR 09/05/2017 [facility] DATE CREATED AUTHOR AUTHOR'S ORGANIZ ATION 01/21/2020 [facility] DATE CREATED AUTHOR AUTHOR'S ORGANIZ ATION 07/07/2022 [facility] DATE CREATED AUTHOR AUTHOR'S ORGANIZ ATION 02/01/2024 [facility] EPIC Reason for Visit (unrecogniz ed section and content) Reason Onset Date Comments Med Refill 04/23/2023 Reason Comments Sinusitis Reason Onset Date Comments Med Refill 12/25/2023 Reason Onset Date Comments Med Refill 01/28/2024 Reason Comments Follow-up Skin cracking open Reason Onset Date Comments Med Refill 11/26/2023 Care Teams (unrecognized sec tion and content) Hematologist Relationship Specialty Start Date End Date Siva Thomson MD [address] [place] [address] PCP - General Family Medicine 04/16/23 Hematologist Relationship Specialty Start Date End Date Siva Thomson MD [address] [place] [address] PCP - General Family Medicine 04/16/23 Hematologist Relationship Specialty Start Date End Date Siva Thomson MD [address] [place] [address] PCP - General Family Medicine 04/16/23 Hematologist Relationship Specialty Start Date End Date Siva Thomson MD [address] [place] [address] PCP - General Family Medicine 04/16/23 Hematologist Relationship Specialty Start Date End Date Siva Thomson MD [address] [place] [address] PCP - General Family Medicine 04/16/23 Hematologist Relationship Specialty Start Date End Date Siva Thomson MD [address] [place] [address] PCP - General Family Medicine 04/16/23 Gladys Martinez RN [address] [place] [place] [address] Registered Nurse Family Medicine 01/09/24 Hematologist Relationship Specialty Start Date End Date Siva Thomson MD [address] [place] [address] PCP - General Family Medicine 04/16/23 Gladys Martinez RN [address] [place] [address] Registered Nurse Family Medicine 01/09/24 Hematologist Relationship Specialty Start Date End Date Siva Thomson MD [address] [place] [address] PCP - General Family Medicine 04/16/23 Gladys Martinez, RN [address] [place] [address] Registered Nurse Family Medicine 01/09/24 FOR RECORDS [...] BE BASED ON THE PRIMARY CLINICAL RECORDS. [facility] [facility]. provides no warranty or guarantee of the accuracy or completeness of information in this document.
[2024-02-22] MEDS: CEFTRIAXONE 1,000 MG in 0.9 % SODIUM CHLORIDE 50 ML 100 MG IV (20:05)
[2024-02-22] MEDS: METHYLPREDNISOLONE SOD SUCC PF 125 MG/2 ML VIAL 60 MG IVP (20:05)
[2024-02-22] MEDS: 0.9 % SODIUM CHLORIDE 1,000 ML 100 ML IV (20:05)
[2024-02-22] MEDS: JUVEN PACKET 1 PACKET PO (20:47)
[2024-02-22] MEDS: MAGNESIUM OXIDE 400 MG TABLET PO (20:47)
[2024-02-22] MEDS: CARVEDILOL 25 MG TABLET PO (20:47)
[2024-02-22] MEDS: ENSURE HP 237 ML LIQUID PO (20:47)
[2024-02-22] MEDS: PROSTAT 15 GM PROTEIN/100 CAL 30 ML LIQUID PACKET PO (20:47)
[2024-02-22 21:07] LABS: Glucometer 158 mg/dL (74-106)
[2024-02-22 21:08] LABS: Troponin I High Sensitivity 58.2 pg/mL (4.0-76.1)
[2024-02-22 21:11] LABS: Lactate/Lactic Acid 1.4 mmol/L (0.4-2.0)
[2024-02-22 21:44] LABS: Internal Control Within Normal Limits; Respiratory Syncytial Virus Not Detected (NOT DETECTE); SARS-CoV-2 Ag NEGATIVE (NEGATIVE)
[2024-02-22 21:45] LABS: Influenza Virus A Antigen Negative; Influenza Virus B Antigen Negative; Internal Control Within Normal Limits
[2024-02-23] MEDS: METHYLPREDNISOLONE SOD SUCC PF 125 MG/2 ML VIAL 60 MG IVP ×3 (01:08→13:02)
[2024-02-23 04:35] VITALS: PULSE 85; O2SAT 98
[2024-02-23] MEDS: IPRATROPIUM/ALBUTEROL SULFATE 3 ML AMPUL.NEB IH ×3 (04:35→16:51)
[2024-02-23 06:23] LABS: Basophils Percent Auto 0.1 % (0.2-2.0); Hematocrit 29.7 % (42.0-54.0); Hemoglobin 10.1 g/dL (14.0-18.0); Immature Granulocytes Abs Auto 0.01 10^3/uL (0.00-0.03); Immature Granulocytes Pct Auto 0.1 % (0.0-0.5); Lymphocytes Absolute Auto 0.2 10^3/uL (1.2-3.8); Lymphocytes Percent Auto 2.9 % (20.5-60.0); Mean Corpuscular Hemoglobin 30.2 pg (25.9-34.0); Mean Corpuscular Volume 88.9 fL (80.0-94.0); Mean Platelet Volume 10.7 fL (9.5-13.5); Monocytes Absolute Auto 0.2 10^3/uL (0.3-0.8); Monocytes Percent Auto 2.9 % (1.7-12.0); Neutrophils Absolute Auto 6.9 10^3/uL (1.4-6.5); Platelet Count 108 10^3/uL (150-450); Red Blood Count 3.34 10^6/uL (4.70-6.10); White Blood Count 7.3 10^3/uL (4.0-11.0)
[2024-02-23] MEDS: 0.9 % SODIUM CHLORIDE 1,000 ML 100 ML IV (06:32)
[2024-02-23 06:50] LABS: Alanine Aminotransferase 105 U/L (16-63); Albumin Globulin Ratio 0.6; Albumin Level 1.7 g/dL (3.4-5.0); Alkaline Phosphatase 57 U/L (46-116); Anion Gap 17.6; Aspartate Amino Transferase 101 U/L (15-37); BUN Creatinine Ratio 22.1; Bilirubin Total 0.7 mg/dL (0.2-1.0); Calcium 8.1 mg/dL (8.5-10.1); Chloride 105 mmol/L (98-107); Estimated GFR (African America 26 (>=60 mL/min/1.73m^2); Estimated GFR (Non-African Ame 21 (>=60 mL/min/1.73m^2); Glucose 133 mg/dL (74-106); Magnesium 1.7 mg/dL (1.8-2.4); Potassium 3.6 mmol/L (3.5-5.1); Sodium 142 mmol/L (136-145); Total Protein 4.7 g/dL (6.4-8.2); Troponin I High Sensitivity 46.7 pg/mL (4.0-76.1)
[2024-02-23 07:48] VITALS: BP 132/74; PULSE 72; TEMP 36.3; O2SAT 93
--- NOTE | 2024-02-23 08:20 | PM.PN ---
Progress Note: Subjective Subjective Interval history: Patient was admitted yesterday for LLL pneumonia, CARLA. Patient developed nausea and vomiting this morning after breakfast. He notes pain in the RUQ. He says his bottom is sore and feels full of gas, he denies passing gas per rectum. Patient denies fevers, shortness of breath, or chest pain. Exam Narrative Exam Narrative: General: Patient is alert, and oriented to person, place and time but is actively nauseated and dry heaves as i'm in the room Skin: multiple areas of skin break down and abrasions Head: atraumatic, acephalic Eyes: PERRLA, no nystagmus present, conjunctiva clear, no scleral icterus Ears: normal gross auditory acuity Neck: no masses palpated Heart: Normal rate and rhythm, no murmurs/rubs/gallops Lungs: diminished breath sounds all lung arango Abdomen: Normal audible bowel sounds, no distension, palpable pain in the RUQ Musculoskeletal: no swelling bilateral lower extremities Neuro: CN II-X grossly intact Constitutional Vital Signs, click to edit/add: Last Vital Signs Temp 97.4 F L 02/23/24 07:48 Pulse 72 02/23/24 07:48 Resp 20 02/23/24 07:48 BP 132/74 02/23/24 07:48 Pulse Ox 93 L 02/23/24 07:48 O2 Del Method Nasal Cannula 02/23/24 07:48 O2 Flow Rate 2 02/23/24 07:48 Progress Note: Objective Labs Labs: Short CBC 02/22/24 02/23/24 Range/Units 14:54 06:09 WBC 13.3 H 7.3 (4.0-11.0) 10^3/uL Hgb 12.3 L 10.1 L (14.0-18.0) g/dL Hct 35.9 L 29.7 L (42.0-54.0) % Plt Count 155 108 L (150-450) 10^3/uL BMP 02/22/24 02/23/24 14:54 06:09 Sodium 136 142 Potassium 3.7 3.6 Chloride 96 L 105 Carbon Dioxide 27.5 23.0 BUN 72.0 H 63.0 H Creatinine 3.52 H 2.85 H Glucose 159 H 133 H Calcium 8.5 8.1 L Liver Function 02/22/24 02/23/24 Range/Units 14:54 06:09 Total Bilirubin 1.4 H 0.7 (0.2-1.0) mg/dL AST 213 H 101 H (15-37) U/L ALT 148 H 105 H (16-63) U/L Alkaline Phosphatase 75 57 (46-116) U/L Albumin 2.3 L 1.7 L (3.4-5.0) g/dL Progress Note: A&P Assessment and Plan (1) Left lower lobe pneumonia: Assessment and Plan: flu, covid and RSV negative- continue with rocephin and levaquin IV, Solumedrol 40mg q6 hours IV along with OPEP and pulmonary toilet, nebs. sputum culture and blood cultures pending. requiring 1 L NC oxygen to maintain oxygen saturations >90% Qualifiers: Pneumonia type: due to unspecified organism Qualified Code(s): J18.9 - Pneumonia, unspecified organism (2) Acute renal failure: Assessment and Plan: Cr was 3.52, down to 2.85 with gentle IVF due to CHF history. Qualifiers: Acute renal failure type: unspecified Qualified Code(s): N17.9 - Acute kidney failure, unspecified (3) Hypomagnesemia: Assessment and Plan: replace orally and IV as needed. 1.7 today (4) Moderate protein-calorie malnutrition: Assessment and Plan: nutrition consult (5) Hypertension: Assessment and Plan: continue coreg Qualifiers: Hypertension type: primary hypertension Qualified Code(s): I10 - Essential (primary) hypertension (6) Non-insulin dependent diabetes mellitus: Assessment and Plan: SSI hold metformin (7) Hyperlipidemia: Assessment and Plan: continue rosuvastatin Qualifiers: Hyperlipidemia type: unspecified Qualified Code(s): E78.5 - Hyperlipidemia, unspecified (8) COPD (chronic obstructive pulmonary disease): Assessment and Plan: history of, treat pneumonia. Qualifiers: COPD type: unspecified COPD Qualified Code(s): J44.9 - Chronic obstructive pulmonary disease, unspecified (9) Elevated liver function tests: Assessment and Plan: with new symptom of N/v, acute abdomen showed dilated bowel with gas, will get RUQ but if nausea persists will get CT abdomen. Currently NPO, may have Small bowel obstruction forming. (10) Falls: Assessment and Plan: pt/ot evaluation and possible longterm. Plan Patient is a DNRCCA continue Heparin for DVT prophylaxis Patient is inpatient and is expected to stay 2 more days for hospital necessary care.
[2024-02-23] MEDS: ONDANSETRON PF 4 MG/2 ML VIAL IV (09:02)
--- NOTE | 2024-02-23 09:55 | XR_ITS ---
The [address] [address] Patient Name: HENRIQUE HAILE MRN: [id number] date: 1940 Sex: M Assigned Patient Location: MS Current Patient Location: MS Accession/Order Number: [id number] Exam Date: 02/23/2024 10:30 Report Date: 02/23/2024 11:09 At the request of: ARIAN LAM Procedure: XR abdomen 1V KUB; 02/23/2024 10:30 AM EST Clinical History:abdominal pain Comparison: 01/15/2020 . Air is present within several nondilated large bowel loops. A modest amount of air is present within a number of nondistended small bowel loops. There is a modest amount stool in the rectosigmoid region. A modest amount of air in the gastric fundus. XR/XR abdomen 1V IMPRESSION: 1. Nonspecific bowel gas pattern as described. Follow-up studies if indicated Electronically authenticated by: GENIE PIMENTEL Date: 02/23/2024 11:09
--- NOTE | 2024-02-23 09:57 | US_ITS ---
The [address] [address] Patient Name: HENRIQUE HAILE MRN: [id number] date: 1940 Sex: M Assigned Patient Location: MS Current Patient Location: MS Accession/Order Number: [id number] Exam Date: 02/23/2024 13:15 Report Date: 02/23/2024 15:06 At the request of: ARIAN LAM Procedure: US right upper quadrant EXAM: US right upper quadrant , 02/23/2024 HISTORY: nausea/vomiting elevated LFT's COMPARISON: X-rays of the abdomen from 02/23/[address] scan of the abdomen and pelvis from 2019 TECHNIQUE: Multiplanar grayscale and color ultrasound imaging of the right upper abdomen was performed. FINDINGS: The liver shows diffuse decrease echogenicity, consistent with steatosis. No obvious focal hepatic mass lesion is seen. The imaging is partially limited due to intercostal windows. Patent portal vein with hepatopetal flow. The gallbladder demonstrates multiple echogenic foci with shadowing consistent with calculi. Additional echogenic material is seen within the gallbladder which could represent sludge. The gallbladder wall measures 3 mm, within normal limits. No pericholecystic fluid. Ultrasound Delatorre sign was absent. Common bile duct is within normal limits measuring 4 mm. The right kidney measures 7.2 x 3.8 x 3.8 cm. Cortical thickness within normal limits measuring 9 mm. No hydronephrosis. Imaging is partially limited due to patient cooperation and overlying bowel gas. The pancreas is not visualized. US/US right upper quadrant IMPRESSION: Cholelithiasis with sludge, without evidence of acute cholecystitis. Mild hepatic steatosis. Electronically authenticated by: JANETTE BOSS Date: 02/23/2024 15:06
[2024-02-23 11:09] VITALS: PULSE 90; O2SAT 99
[2024-02-23 11:48] LABS: Glucometer 168 mg/dL (74-106)
[2024-02-23 12:00] VITALS: BP 137/81; PULSE 82; TEMP 36.4; O2SAT 97
--- NOTE | 2024-02-23 14:09 | PC.NURSE ---
Left message at the Wound center for consult regarding many wounds, to please call [facility] back on Sunday
--- NOTE | 2024-02-23 15:15 | CT_ITS ---
The [address] [address] Patient Name: HENRIQUE HAILE MRN: [id number] date: 1940 Sex: M Assigned Patient Location: MS Current Patient Location: Accession/Order Number: [id number] Exam Date: 02/23/2024 15:38 Report Date: 02/23/2024 17:31 At the request of: ARIAN LAM Procedure: CT abdomen wo con EXAM: CT OF THE ABDOMEN AND PELVIS WITHOUT CONTRAST 02/23/2024 COMPARISON STUDY: CT of the abdomen and pelvis with contrast 01/12/2020. HISTORY: nausea/vomiting, possible obstruction TECHNIQUE: 3 mm sagittal images were obtained from the lung bases through the pubic symphysis without the use of contrast. Coronal and sagittal reconstructed images were obtained. FINDINGS: CT abdomen: A noncalcified nodule within the lateral segment right middle lobe with transverse width of 6 mm is unchanged. There is bibasilar abnormal bronchial wall cuffing with significant mucus plugging involving segmental and subsegmental bronchi noted. This is predominantly noted within the right lower lobe. Bilateral multifocal pneumonitis involving middle lobe, lingula and lower lobes noted. Trace bilateral pleural effusions are identified. Heart size is normal. Trace volume of pericardial fluid noted. Coronary artery calcifications are evident. A subcapsular right hepatic lesion involving the anterior segment on image 40 with transverse diameter of 15 mm has attenuation measurement of 56 Hounsfield units. This is unchanged in size. Granulomatous type hepatic and splenic calcifications are present. Dependent layering sludge as well as calcified stone within the gallbladder noted without abnormal pericholecystic changes. Similar background global atrophic changes of the pancreas and kidneys. Both adrenals maintain adreniform shape. Subcentimeter calculi within each kidney are nonobstructive. A stone at the inferior pole left kidney for example measures 6 mm. There are stones at the inferior pole of the right kidney measuring 3 mm. Significant atherosclerotic change of the aorta and its branches are noted. Mid infrarenal segment is aneurysmal at 3.1 x 3.4 cm. More distally aorta has AP diameter of 3.2 cm. Focal aneurysmal dilatation of the right common iliac artery with AP diameter of 2.[address] pelvis: Similar mild prostatic enlargement with calcifications. There are calcifications involving the seminal vesicles and vas deferens. Mild trabeculated appearance to the urinary bladder wall noted. There is a component of constipation. Morphologic appearance of small bowel segments about the lower abdomen and pelvis suggestive of adhesions. A mid abdominal jejunal segment of the left contains air-fluid level with AP diameter of 2.6 cm. Several of the small bowel segments are adhered to the anterior peritoneal surface about the lower abdomen and pelvis. No significantly enlarged adenopathy or ascites. Appendix appears unremarkable. Mild levoscoliosis with degenerative changes of the spine. Multilevel lumbar canal stenosis. Moderate arthritic changes involving the pelvic articulations are again identified. Small bone island involving the left inferior pubic ramus is stable. There is also involvement of the posterior right acetabulum. Patient may have had prior umbilical hernia repair. CT/CT abdomen wo con IMPRESSION: 1. Infectious/inflammatory bronchitis with bronchiolitis at both lung bases with mucus plugging involving segmental and subsegmental bronchi. Scattered multifocal pneumonia involving middle lobe, lingula and both lower lobes noted. Trace bilateral pleural effusions. 2. Prior umbilical hernia repair. Morphologic appearance of small bowel segments suggestive of intraperitoneal adhesions. There is mild distention of upper small bowel segments with scattered air-fluid levels making it difficult to exclude. Low-grade partial small bowel obstruction. 3. Stable right hepatic hemangioma. 4. Cholelithiasis without acute cholecystitis. 5. Similar background global atrophic changes of the kidneys and pancreas. Subcentimeter nonobstructive renal calculi. 6. Atherosclerotic change of the aorta and its branches with infrarenal abdominal aortic aneurysmal dilatation. 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 7. Prostatomegaly. 8. Colonic diverticulosis without diverticulitis or appendicitis. Electronically authenticated by: SUSAN PRUITT Date: 02/23/2024 17:31
[2024-02-23 15:56] VITALS: BP 151/76; PULSE 91; TEMP 36.4; O2SAT 96
[2024-02-23 16:23] LABS: Glucometer 172 mg/dL (74-106)
[2024-02-23 16:52] VITALS: PULSE 79; O2SAT 90
--- NOTE | 2024-02-23 16:56 | RESP.RT ---
ear probe used, increased to 3 LPM
[2024-02-23] MEDS: FUROSEMIDE 40 MG/4 ML VIAL IVP (17:20)
--- NOTE | 2024-02-23 18:46 | PC.NURSE ---
Messages left for both son Ej([phone]) and daughter Shayna([phone]) regarding pts change in condition, and could they please call the hospital back as soon as possible.
--- NOTE | 2024-02-23 19:36 | PC.NURSE ---
Pt's daughter, Erica Means called to unit and spoke with patient's nurse, JER Gonzalez. Family has chosen [facility] in [place], [place]. The home was contacted at 1935. Awaiting home pickup and release of patient's body at this time.
--- NOTE | 2024-02-24 07:13 | PM.DS1 ---
DS: Providers Provider Date of admission: 02/22/24 16:46 Primary care physician: Siva Abraham MD Admitting clinician: Prashant Barrett Consults: 02/22/24 16:51 Consult to Pharmacy Routine Consulting Provider: Reason for consultation: Please [place] me when Med Rec is Updated Has provider been notified: No Occupational Therapy Eval and Treat Routine Reason for consultation: Only if needed for Rehab Has provider been notified: No Physical Therapy Eval and Treat Routine Reason for consultation: Eval and Treat Has provider been notified: No 02/22/24 18:05 Consult to Wound Care Routine Consulting Provider: Jefferson Ngo Reason for consultation: multiple wounds Discharging clinician: Joelle Ellis DS: Diagnosis Discharge Diagnosis (1) Left lower lobe pneumonia: Qualifiers: Pneumonia type: due to unspecified organism Qualified Code(s): J18.9 - Pneumonia, unspecified organism (2) Acute renal failure: Qualifiers: Acute renal failure type: unspecified Qualified Code(s): N17.9 - Acute kidney failure, unspecified (3) Hypomagnesemia: (4) Moderate protein-calorie malnutrition: (5) Hypertension: Qualifiers: Hypertension type: primary hypertension Qualified Code(s): I10 - Essential (primary) hypertension (6) Non-insulin dependent diabetes mellitus: (7) Hyperlipidemia: Qualifiers: Hyperlipidemia type: unspecified Qualified Code(s): E78.5 - Hyperlipidemia, unspecified (8) COPD (chronic obstructive pulmonary disease): Qualifiers: COPD type: unspecified COPD Qualified Code(s): J44.9 - Chronic obstructive pulmonary disease, unspecified (9) Elevated liver function tests: (10) Falls: DS: Summary Hospital Course Hospital Course: Patient presented to the emergency room on 02/22/24 with increasing cough and weakness. Found to have left lower lobe pneumonia (seen on CXR) with acute exacerbation of COPD with acute hypoxic respiratory failure with O2 sat of 81%. Patient was started on IV Levaquin, IV solumedrol, and neb treatments. Patient also had leukocytosis, borderline lactate (upper limit of normal is 2 and he is 2) elevated liver function tests, elevated proBNP 9900 significantly elevated so unable to give aggressive fluid resuscitation. Patient was negative for COVID, RSV, influenza. Patient also found to have, acute renal failure-baseline creatinine of 1.05, creatinine admission of 3.52 which is 335.2% above baseline.-Patient was given Gentle hydration secondary to the elevated BNP. Normal high-sensitivity troponin-EKG is normal, patient denied any chest pain. Patient also with Hypomagnesemia was placed on oral replacement. Patient had multiple abrasions secondary to recurrent falls also with left hip decubitus ulcer. The abrasions were on his elbows, forearms, tops of feet and legs. These were dressed by nursing staff. On the morning of 02/23/24, patient developed some nausea with vomiting after breakfast. He was given zofran, Abdominal Xray obtained that showed some dilated bowel with gas and stool but patient was complaining more of RUQ pain. I made him NPO and US of RUQ was performed which showed some fatty liver and gallbladder stones/sludge but no evidence of acute cholecystitis. Patient reported his cough and shortness of breath had improved. He was on room air and keeping his saturations above 90%. On morning rounds he mentioned to me that he was ready to and he wanted to be with his who is in [facility]. I discussed ultrasound findings with him after they had resulted and discussed doing a abdominal CT since he was still having pain and some nausea. I was notified at 4:24 that patient had not had much urine output but shortly after that he flooded his brief . On returning from CT scan, I was notified at 4:57pm that patient was getting more short of breath but was getting his breathing treatment, saturations were >90%. I instructed nurse to stop IVF of NS @ 50cc/hr, I had planned to get a stat chest xray but the CT resulted which showed: A noncalcified nodule within the lateral segment right middle lobe with transverse width of 6 mm is unchanged. There is bibasilar abnormal bronchial wall cuffing with significant mucus plugging involving segmental and subsegmental bronchi noted. This is predominantly noted within the right lower lobe. Bilateral multifocal pneumonitis involving middle lobe, lingula and lower lobes noted. Trace bilateral pleural effusions are identified. Heart size is normal. Trace volume of pericardial fluid noted. Coronary artery calcifications are evident. A subcapsular right hepatic lesion involving the anterior segment on image 40 with transverse diameter of 15 mm has attenuation measurement of 56 Hounsfield units. This is unchanged in size. Granulomatous type hepatic and splenic calcifications are present. Dependent layering sludge as well as calcified stone within the gallbladder noted without abnormal pericholecystic changes. Similar background global atrophic changes of the pancreas and kidneys. Both adrenals maintain adreniform shape. Subcentimeter calculi within each kidney are nonobstructive. A stone at the inferior pole left kidney for example measures 6 mm. There are stones at the inferior pole of the right kidney measuring 3 mm. Significant atherosclerotic change of the aorta and its branches are noted. Mid infrarenal segment is aneurysmal at 3.1 x 3.4 cm. More distally aorta has AP diameter of 3.2 cm. Focal aneurysmal dilatation of the right common iliac artery with AP diameter of 2.[address] pelvis: Similar mild prostatic enlargement with calcifications. There are calcifications involving the seminal vesicles and vas deferens. Mild trabeculated appearance to the urinary bladder wall noted. There is a component of constipation. Morphologic appearance of small bowel segments about the lower abdomen and pelvis suggestive of adhesions. A mid abdominal jejunal segment of the left contains air-fluid level with AP diameter of 2.6 cm. Several of the small bowel segments are adhered to the anterior peritoneal surface about the lower abdomen and pelvis. No significantly enlarged adenopathy or ascites. Appendix appears unremarkable. Mild levoscoliosis with degenerative changes of the spine. Multilevel lumbar canal stenosis. Moderate arthritic changes involving the pelvic articulations are again identified. Small bone island involving the left inferior pubic ramus is stable. There is also involvement of the posterior right acetabulum. Patient may have had prior umbilical hernia repair. CT/CT abdomen wo con IMPRESSION: 1. Infectious/inflammatory bronchitis with bronchiolitis at both lung bases with mucus plugging involving segmental and subsegmental bronchi. Scattered multifocal pneumonia involving middle lobe, lingula and both lower lobes noted. Trace bilateral pleural effusions. 2. Prior umbilical hernia repair. Morphologic appearance of small bowel segments suggestive of intraperitoneal adhesions. There is mild distention of upper small bowel segments with scattered air-fluid levels making it difficult to exclude. Low-grade partial small bowel obstruction. 3. Stable right hepatic hemangioma. 4. Cholelithiasis without acute cholecystitis. 5. Similar background global atrophic changes of the kidneys and pancreas. Subcentimeter nonobstructive renal calculi. 6. Atherosclerotic change of the aorta and its branches with infrarenal abdominal aortic aneurysmal dilatation. 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 7. Prostatomegaly. 8. Colonic diverticulosis without diverticulitis or appendicitis. In the acute setting of pleural edema on CT and worsening hypoxia, Patient was given Lasix 40mg IV x 1 per my verbal orders after calling the floor and speaking with his nurse, Lo. I was notified that vitals were stable at the time, patient was placed on 2L NC oxygen. At 6:28pm, I was notified that patient had . Nursing staff called and notified family, Son Ej, and daughters and were able to obtain arrangements. Patient was a DNRCCA. Status at Discharge Overall status at discharge: other Time Spent with Patient Time attestation: Total time spent providing and/or coordinating discharge services: Exam Narrative Exam Narrative: patient Constitutional Vital Signs, click to edit/add: Last Vital Signs Temp 97.6 F 02/23/24 15:56 Pulse 79 02/23/24 16:52 Resp 20 02/23/24 15:56 BP 151/76 H 02/23/24 15:56 Pulse Ox 90 L 02/23/24 16:52 O2 Del Method Nasal Cannula 02/23/24 16:52 O2 Flow Rate 2 02/23/24 16:52 DS: Data Data Completed and Pending Labs on day of discharge: Labs from last 24 hours 02/23/24 02/23/24 16:12 11:45 POC Glucose 172 H 168 H Discharge Plan Discharge Disposition: Discharge Date/Time: 02/23/24 20:20 Date/Time: 02/23/24 18:25
== END 2024-02-23 20:20 | disposition expired | DRG 193 ==
LOC: ER 15:40 → MS 16:49
PROVIDERS: Family Medicine; Admitting Provider Family Medicine; Emergency Provider Emergency Medicine; PCP Family Medicine; Visit Provider Family Medicine
DX: J18.9 Pneumonia, unspecified organism (principal); J96.01 Acute respiratory failure with hypoxia; E44.0 Moderate protein-calorie malnutrition; N17.9 Acute kidney failure, unspecified; J44.0 Chronic obstructive pulmonary disease with (acute) lower respiratory infection; J44.1 Chronic obstructive pulmonary disease with (acute) exacerbation; Z68.1 Body mass index [BMI] 19.9 or less, adult; T17.890A Other foreign object in other parts of respiratory tract causing asphyxiation, initial encounter; Z66 Do not resuscitate; E11.9 Type 2 diabetes mellitus without complications; E78.00 Pure hypercholesterolemia, unspecified; E83.42 Hypomagnesemia; E86.0 Dehydration; F17.200 Nicotine dependence, unspecified, uncomplicated; I11.0 Hypertensive heart disease with heart failure; I50.9 Heart failure, unspecified; I49.3 Ventricular premature depolarization; K76.0 Fatty (change of) liver, not elsewhere classified; K80.20 Calculus of gallbladder without cholecystitis without obstruction; L89.019 Pressure ulcer of right elbow, unspecified stage; L89.229 Pressure ulcer of left hip, unspecified stage; R29.6 Repeated falls; R74.01 Elevation of levels of liver transaminase levels; S50.319A Abrasion of unspecified elbow, initial encounter; S50.819A Abrasion of unspecified forearm, initial encounter; S90.819A Abrasion, unspecified foot, initial encounter; S80.819A Abrasion, unspecified lower leg, initial encounter; W19.XXXA Unspecified fall, initial encounter; Z91.81 History of falling; Z20.822 Contact with and (suspected) exposure to COVID-19; Z79.84 Long term (current) use of oral hypoglycemic drugs
CPT/HCPCS: 36415; 51798; 71045; 74018; 74150; 76705; 80053; 81001; 82948; 83605; 83735; 83880; 84484; 85025; 85610; 87040; 87070; 87205; 87420; 87804; 87811; 93005; 94640; 94667; 94761; 96365; 97161; 99285; 99406; G0328; J0696; J1940; J2405; J2919